=== PATIENT | female | born 1965 | race Hispanic/Latino ===

== ENCOUNTER 2018-02-26 13:08 | Inpatient (IN) | payer SELFPAY ==
[2018-02-26] MEDS ORDERED: NACL 0.9% 1000 ML 1,000 ML IV ONE ×2 (15:34)
--- NOTE | 2018-02-26 15:42 | Emergency Department Report ---
HPI - General Chief Complaint: Abdominal Pain Time Seen by Provider: 02/26/18 15:25 - HPI HPI: Room 25 The patient is a 52-year-old female presenting with a chief complaint an dark stool. Patient states for one week she has had intermittent periumbilical abdominal pain. Patient describes pain as sharp, dull and crampy in nature. Patient states pain has been intermittent for one week. Patient states she had one episode of vomiting but denies hematemesis or coffee ground emesis. The patient states last night her stool appeared dark and there was a streak of bright red blood. Location: Gastrointestinal system Duration: Intermittent times one week Quality: Pain Severity: Moderate Modifying factors: [see above] Context: [see above] Mode of transportation: [not driving] ED Past Medical Hx - Past Medical History Hx Hypertension: Yes (no current meds; ) Hx GERD: Yes Additional medical history: anemia. Bleeding ulcer - Surgical History Additional Surgical History: Endoscopy for bleeding ulcer 5 years ago - Family History Family history: no significant - Social History Smoking Status: Never Smoker Substance Use Type: None (denies illicit drug use) - Medications Home Medications: Home Medications Medication Instructions Recorded Confirmed Last Taken Type Pantoprazole [Protonix] 40 mg PO BID #60 tablet 01/01/14 Unknown Rx Moxifloxacin HCl [Avelox] 400 mg PO QDAY #5 tablet 01/04/14 Unknown Rx ED Review of Systems ROS: Stated complaint: ABD PAIN/BLEEDING/BACK PAIN/N/V Other details as noted in HPI Comment: All other systems reviewed and negative Constitutional: no symptoms reported Eyes: denies: eye pain ENT: denies: throat pain Respiratory: no symptoms reported Cardiovascular: denies: chest pain Endocrine: no symptoms reported Gastrointestinal: abdominal pain, nausea, vomiting, hematochezia Genitourinary: denies: dysuria Musculoskeletal: back pain Neurological: denies: headache Physical Exam - Physical Exam Vital Signs: Vital Signs 02/26/18 13:19 Temperature 99.2 F Pulse Rate 124 H Respiratory 16 Rate Blood Pressure 127/72 O2 Sat by Pulse 100 Oximetry Physical Exam: GENERAL: The patient is well-developed well-nourished female lying on stretcher not appearing to be in acute distress. [] HEENT: Normocephalic. Atraumatic. Extraocular motions are intact. Patient has moist mucous membranes. NECK: Supple. No meningitic signs are noted. There is no adenopathy noted. CHEST/LUNGS: Clear to auscultation. There is no respiratory distress noted. HEART/CARDIOVASCULAR: Regular. There is no tachycardia. There is no gallop rub or murmur. ABDOMEN: Abdomen is soft, nontender. Patient has normal bowel sounds. There is no abdominal distention. SKIN: There is no rash. There is no edema. There is no diaphoresis. NEURO: The patient is awake, alert, and oriented. The patient is cooperative. The patient has normal speech MUSCULOSKELETAL: There is no evidence of acute injury. RECTAL: Guaiac positive ED Course Vital Signs 02/26/18 13:19 Temperature 99.2 F Pulse Rate 124 H Respiratory 16 Rate Blood Pressure 127/72 O2 Sat by Pulse 100 Oximetry ED Medical Decision Making - Lab Data Result diagrams: 02/26/18 15:35 02/26/18 15:35 Laboratory Tests 02/26/18 02/26/18 02/26/18 15:35 15:35 15:35 WBC 8.8 RBC 2.83 L Hgb 10.8 Hct 30.5 MCV 108 H MCH 38 H MCHC 36 H RDW 12.3 L Plt Count 358 Lymph % (Auto) 39.0 H [place] % (Auto) 4.9 Eos % (Auto) 1.1 Baso % (Auto) 0.4 Lymph # 3.4 [place] # 0.4 Eos # 0.1 Baso # 0.0 Seg Neutrophils % 54.6 Seg Neutrophils # 4.8 PT 13.7 INR 1.01 APTT 21.2 L Sodium 141 Potassium 3.9 Chloride 99.5 Carbon Dioxide 26 Anion Gap 19 BUN 20 H Creatinine 0.7 Estimated GFR > 60 BUN/Creatinine Ratio 29 Glucose 104 H Calcium 8.9 Total Bilirubin 0.40 AST 18 ALT 12 Alkaline Phosphatase 80 Total Protein 7.1 Albumin 4.2 Albumin/Globulin Ratio 1.4 - Differential Diagnosis GI bleed Critical care attestation.: If time is entered above; I have spent that time in minutes in the direct care of this critically ill patient, excluding procedure time. ED Disposition Clinical Impression: GI bleed Disposition: OP ADMIT IP TO THIS HOSP Is pt being admited?: Yes Does the pt Need Aspirin: No Condition: Fair Instructions: Abdominal Pain (ED) Referrals: MCGRAW,COLLEEN, MD [Primary Care Provider] - 3-5 Days Time of Disposition: 16:28 (hospitalist paged (Dr Briscoe))
[2018-02-26 15:45] LABS: Basophils % (Auto) 0.4 % (0.0-1.8); Eosinophils # (Auto) 0.1 K/mm3 (0.0-0.4); Eosinophils % (Auto) 1.1 % (0.0-4.3); Hematocrit 30.5 % (30.3-42.9); Hemoglobin 10.8 gm/dl (10.1-14.3); Lymphocytes # (Auto) 3.4 K/mm3 (1.2-5.4); Mean Corpuscular HGB Conc 36 % (30-34); Mean Corpuscular Volume 108 fl (79-97); Monocytes # (Auto) 0.4 K/mm3 (0.0-0.8); Monocytes % (Auto) 4.9 % (0.0-7.3); Platelet Count 358 K/mm3 (140-440); Red Blood Count 2.83 M/mm3 (3.65-5.03); Red Cell Distribution Width 12.3 % (13.2-15.2)
[2018-02-26 15:55] LABS: INR 1.01 (0.87-1.13)
[2018-02-26 15:56] LABS: Partial Thromboplastin Time 21.2 Sec. (24.2-36.6)
[2018-02-26 16:20] LABS: Alanine Aminotransferase 12 units/L (7-56); Albumin 4.2 g/dL (3.9-5); BUN/Creatinine Ratio 29; Blood Urea Nitrogen 20 mg/dL (7-17); Calcium 8.9 mg/dL (8.4-10.2); Hemolysis Index 7
[2018-02-26] MEDS ORDERED: ZOFRAN IV ONE (17:09)
[2018-02-26] MEDS ORDERED: SUBLIMAZE IV ONE (17:09)
--- NOTE | 2018-02-26 18:40 | History and Physical Report ---
History of Present Illness Date of examination: 02/26/18 Medications and Allergies Allergies Allergy/AdvReac Type Severity Reaction Status Date / Time Penicillins Allergy Swelling Verified 12/28/13 17:26 Home Medications Medication Instructions Recorded Confirmed Last Taken Type Pantoprazole [Protonix] 40 mg PO BID #60 tablet 01/01/14 Unknown Rx Moxifloxacin HCl [Avelox] 400 mg PO QDAY #5 tablet 01/04/14 Unknown Rx Exam - Constitutional Vitals: Temp Pulse Resp BP Pulse Ox 99.2 F 101 H 19 129/83 98 02/26/18 13:19 02/26/18 18:00 02/26/18 18:00 02/26/18 18:00 02/26/18 18:00 Results - Labs CBC & Chem 7: 02/26/18 15:35 02/26/18 15:35 Labs: Laboratory Last Values WBC 8.8 K/mm3 (4.5-11.0) 02/26/18 15:35 RBC 2.83 M/mm3 (3.65-5.03) L 02/26/18 15:35 Hgb 10.8 gm/dl (10.1-14.3) 02/26/18 15:35 Hct 30.5 % (30.3-42.9) 02/26/18 15:35 MCV 108 fl (79-97) H 02/26/18 15:35 MCH 38 pg (28-32) H 02/26/18 15:35 MCHC 36 % (30-34) H 02/26/18 15:35 RDW 12.3 % (13.2-15.2) L 02/26/18 15:35 Plt Count 358 K/mm3 (140-440) 02/26/18 15:35 Lymph % (Auto) 39.0 % (13.4-35.0) H 02/26/18 15:35 [place] % (Auto) 4.9 % (0.0-7.3) 02/26/18 15:35 Eos % (Auto) 1.1 % (0.0-4.3) 02/26/18 15:35 Baso % (Auto) 0.4 % (0.0-1.8) 02/26/18 15:35 Lymph # 3.4 K/mm3 (1.2-5.4) 02/26/18 15:35 [place] # 0.4 K/mm3 (0.0-0.8) 02/26/18 15:35 Eos # 0.1 K/mm3 (0.0-0.4) 02/26/18 15:35 Baso # 0.0 K/mm3 (0.0-0.1) 02/26/18 15:35 Seg Neutrophils % 54.6 % (40.0-70.0) 02/26/18 15:35 Seg Neutrophils # 4.8 K/mm3 (1.8-7.7) 02/26/18 15:35 PT 13.7 Sec. (12.2-14.9) 02/26/18 15:35 INR 1.01 (0.87-1.13) 02/26/18 15:35 APTT 21.2 Sec. (24.2-36.6) L 02/26/18 15:35 Sodium 141 mmol/L (137-145) 02/26/18 15:35 Potassium 3.9 mmol/L (3.6-5.0) 02/26/18 15:35 Chloride 99.5 mmol/L (98-107) 02/26/18 15:35 Carbon Dioxide 26 mmol/L (22-30) 02/26/18 15:35 Anion Gap 19 mmol/L 02/26/18 15:35 BUN 20 mg/dL (7-17) H 02/26/18 15:35 Creatinine 0.7 mg/dL (0.7-1.2) 02/26/18 15:35 Estimated GFR > 60 ml/min 02/26/18 15:35 BUN/Creatinine Ratio 29 % 02/26/18 15:35 Glucose 104 mg/dL (65-100) H 02/26/18 15:35 Calcium 8.9 mg/dL (8.4-10.2) 02/26/18 15:35 Total Bilirubin 0.40 mg/dL (0.1-1.2) 02/26/18 15:35 AST 18 units/L (5-40) 02/26/18 15:35 ALT 12 units/L (7-56) 02/26/18 15:35 Alkaline Phosphatase 80 units/L (35-129) 02/26/18 15:35 Total Protein 7.1 g/dL (6.3-8.2) 02/26/18 15:35 Albumin 4.2 g/dL (3.9-5) 02/26/18 15:35 Albumin/Globulin Ratio 1.4 % 02/26/18 15:35 Blood Type A POSITIVE 02/26/18 15:42 Antibody Screen Negative 02/26/18 15:42
[2018-02-26] MEDS ORDERED: ZOFRAN IV PRN ×2 (18:51→21:29)
[2018-02-26] MEDS ORDERED: DILAUDID IV PRN (18:51)
[2018-02-26] MEDS ORDERED: SODIUM CHLORIDE FLUSH SYRINGE 10 ML IV PRN ×2 (18:51→21:29)
[2018-02-26] MEDS ORDERED: TYLENOL PO PRN ×2 (18:51→21:29)
[2018-02-26] MEDS ORDERED: D5NS 1,000 ML IV SCH (19:00)
[2018-02-26] MEDS ORDERED: ALUM-MAG HYDROX-SIMETH 200-200-20MG/5ML PO PRN (20:30)
[2018-02-26] MEDS ORDERED: ALUM-MAG HYDROX-SIMETH 200-200-20MG/5ML ONE (20:30)
[2018-02-26] MEDS: PROTONIX 80 MG in NACL 0.9% 100 ML IV SCH (21:13)
[2018-02-26] MEDS ORDERED: PROTONIX 80 MG in NACL 0.9% 100 ML IV SCH (21:29)
[2018-02-26] MEDS ORDERED: SODIUM CHLORIDE FLUSH SYRINGE 10 ML IV SCH (22:00)
[2018-02-26] MEDS: D5NS 1,000 ML IV SCH (22:06)
[2018-02-26] MEDS: SODIUM CHLORIDE FLUSH SYRINGE 10 ML IV SCH (22:07)
[2018-02-27] MEDS: DILAUDID IV PRN ×5 (00:01→19:54)
[2018-02-27 04:30] LABS: Basophils % (Auto) 0.5 % (0.0-1.8); Eosinophils # (Auto) 0.2 K/mm3 (0.0-0.4); Eosinophils % (Auto) 2.6 % (0.0-4.3); Hematocrit 20.8 % (30.3-42.9); Hemoglobin 7.3 gm/dl (10.1-14.3); Lymphocytes # (Auto) 2.5 K/mm3 (1.2-5.4); Lymphocytes % (Auto) 41.4 % (13.4-35.0); Mean Corpuscular HGB Conc 35 % (30-34); Mean Corpuscular Volume 110 fl (79-97); Monocytes # (Auto) 0.4 K/mm3 (0.0-0.8); Monocytes % (Auto) 6.2 % (0.0-7.3); Platelet Count 206 K/mm3 (140-440); Red Cell Distribution Width 12.6 % (13.2-15.2)
[2018-02-27 05:04] LABS: Alanine Aminotransferase 8 units/L (7-56); Albumin 3.1 g/dL (3.9-5); BUN/Creatinine Ratio 16; Blood Urea Nitrogen 8 mg/dL (7-17); Calcium 7.8 mg/dL (8.4-10.2); Hemolysis Index 4
[2018-02-27] MEDS: PROTONIX 80 MG in NACL 0.9% 100 ML IV SCH ×2 (05:32→15:18)
--- NOTE | 2018-02-27 06:50 | Event Note ---
Date: 02/26/18 See H/p in reports GI Bleed
--- NOTE | 2018-02-27 07:36 | History and Physical Report ---
CHIEF COMPLAINT: Dark tarry stools for 1 day. Abdominal pain for 1 week. HISTORY OF PRESENT ILLNESS: The patient is a 52-year-old female with history of hypertension, gastroesophageal reflux disease, and bleeding ulcer, comes in for dark tarry stools of 1 day duration. The patient also has intermittent abdominal pain about 5 on a scale of 10. Dull crampy nature, going on for 1 week. One episode of vomiting, but denies hematemesis or coffee-ground emesis. Stool appears dark since last night and there was a streak of bright red blood on the stool. No syncope, no lightheadedness. No seizures. No fever or chills. PAST MEDICAL HISTORY: As mentioned, has hypertension, not on any medications, Gastroesophageal reflux disease and peptic ulcer disease. PAST SURGICAL HISTORY: Endoscopy for bleeding ulcer 5 years ago. FAMILY HISTORY: Hypertension. SOCIAL HISTORY: Does not smoke. No alcohol, no recreational drugs. CURRENT MEDICATIONS: Protonix 40 mg twice a day and also, Avelox in the past in 12/2013. REVIEW OF SYSTEMS: Significant for dark tarry stools. No lightheadedness, no syncope. Otherwise, review of systems negative. PHYSICAL EXAMINATION: GENERAL: Middle-aged female, cooperative during examination. VITAL SIGNS: Blood pressure 132/82, temperature 98.7, pulse 102, respirations 15. HEENT: Unremarkable. Pupils equal and reactive. NECK: Supple, no lymphadenopathy, no thyromegaly. LUNGS: Clear to auscultation and percussion. Good air entry. CARDIOVASCULAR: S1, S2 heard. No gallop, no murmur, no rub. Apical impulse in left fifth intercostal space and midclavicular line. ABDOMEN: Soft and benign. RECTAL: Occult blood positive on the rectal exam. SKIN: Normal. CENTRAL NERVOUS SYSTEM: Alert and oriented x 4. LABORATORY DATA: Significant for H and H of 10.8 and 30.5, platelet count of 358,000. BUN and creatinine of 20 and 0.7. Otherwise, electrolytes are normal. ASSESSMENT AND PLAN: 1. Gastrointestinal bleed. Serial hemoglobin and hematocrit to rule out acute blood loss anemia and GI consult requested. IV Protonix initiated for possible peptic ulcer disease and bleeding ulcer. IV fluids. 2. Hypertension. The patient not on any medication. Blood pressure is normal now, so we will initiate antihypertensives if necessary. 3. Gastroesophageal reflux disease. The patient already on Protonix drip. Discharge the patient on PPIs. 4. Deep venous thrombosis prophylaxis, SCDs only. No Lovenox. The patient on PPI for gastrointestinal hemorrhage. Cover for GI prophylaxis. JOB# [id number] VSM/JM AG
[2018-02-27] MEDS: D5NS 1,000 ML IV SCH (10:36)
--- NOTE | 2018-02-27 11:40 | Progress Note ---
Assessment and Plan Assessment and plan: 52-year-old female patient with significant has a history of hypertension GERD bleeding ulcers and erosive esophagitis was admitted to the emergency room with melena. --Acute GI bleeding; With significant drop in H&H, Protonix, nothing by mouth status, GI evaluation --Acute blood loss anemia; hemoglobin dropped from 10.8 -7.3 - 7.1 Closely monitor H&H and transfuse 1 unit of PRBCs today. --History of erosive esophagitis/duodenal ulcer; Follow GI consultation, and recommendations --Moderate malnutrition; nutrition supplements and supportive care --DVT prophylaxis; SCDs, no pharmacologic anticoagulation In view of severe GI bleeding and anemia Closely monitor the patient and adjust the management as needed Plan of care reviewed with the patient and family member at the bedside History Interval history: Patient seen and examined medical records reviewed Admitted with upper GI bleeding/melena, pending GI evaluation Patient has significant history of erosive esophagitis and duodenal ulcer in the past Hemoglobin dropped from 10-7.1 Continues to have black tarry stools Patient complains of generalized weakness Vital signs noted Hospitalist Physical - Constitutional Vitals: Temp Pulse Resp BP Pulse Ox 98.7 F 94 H 16 120/67 98 02/27/18 04:52 02/27/18 04:52 02/27/18 04:52 02/27/18 04:52 02/27/18 04:52 General appearance: Present: no acute distress, well-nourished - EENT Eyes: Present: PERRL, EOM intact - Neck Neck: Present: supple, normal ROM - Respiratory Respiratory effort: normal Respiratory: bilateral: diminished, negative: rales, rhonchi, wheezing - Cardiovascular Rhythm: regular Heart Sounds: Present: S1 & S2 - Extremities Extremities: no ischemia, No edema - Abdominal General gastrointestinal: soft, non-tender, non-distended, normal bowel sounds - Integumentary Integumentary: Present: clear, warm - Psychiatric Psychiatric: appropriate mood/affect, cooperative - Neurologic Neurologic: CNII-XII intact, moves all extremities Results - Labs CBC & Chem 7: 02/27/18 12:29 02/27/18 04:10 Labs: Laboratory Last Values WBC 6.0 K/mm3 (4.5-11.0) 02/27/18 04:10 RBC 1.90 M/mm3 (3.65-5.03) L 02/27/18 04:10 Hgb 7.3 gm/dl (10.1-14.3) L D 02/27/18 04:10 Hct 20.8 % (30.3-42.9) L D 02/27/18 04:10 MCV 110 fl (79-97) H 02/27/18 04:10 MCH 38 pg (28-32) H 02/27/18 04:10 MCHC 35 % (30-34) H 02/27/18 04:10 RDW 12.6 % (13.2-15.2) L 02/27/18 04:10 Plt Count 206 K/mm3 (140-440) 02/27/18 04:10 Lymph % (Auto) 41.4 % (13.4-35.0) H 02/27/18 04:10 [place] % (Auto) 6.2 % (0.0-7.3) 02/27/18 04:10 Eos % (Auto) 2.6 % (0.0-4.3) 02/27/18 04:10 Baso % (Auto) 0.5 % (0.0-1.8) 02/27/18 04:10 Lymph # 2.5 K/mm3 (1.2-5.4) 02/27/18 04:10 [place] # 0.4 K/mm3 (0.0-0.8) 02/27/18 04:10 Eos # 0.2 K/mm3 (0.0-0.4) 02/27/18 04:10 Baso # 0.0 K/mm3 (0.0-0.1) 02/27/18 04:10 Seg Neutrophils % 49.3 % (40.0-70.0) 02/27/18 04:10 Seg Neutrophils # 3.0 K/mm3 (1.8-7.7) 02/27/18 04:10 PT 13.7 Sec. (12.2-14.9) 02/26/18 15:35 INR 1.01 (0.87-1.13) 02/26/18 15:35 APTT 21.2 Sec. (24.2-36.6) L 02/26/18 15:35 Sodium 139 mmol/L (137-145) 02/27/18 04:10 Potassium 4.2 mmol/L (3.6-5.0) 02/27/18 04:10 Chloride 107.1 mmol/L (98-107) H 02/27/18 04:10 Carbon Dioxide 25 mmol/L (22-30) 02/27/18 04:10 Anion Gap 11 mmol/L 02/27/18 04:10 BUN 8 mg/dL (7-17) 02/27/18 04:10 Creatinine 0.5 mg/dL (0.7-1.2) L 02/27/18 04:10 Estimated GFR > 60 ml/min 02/27/18 04:10 BUN/Creatinine Ratio 16 % 02/27/18 04:10 Glucose 99 mg/dL (65-100) 02/27/18 04:10 Hemoglobin A1c 10.8 % (4-6) H 02/27/18 04:10 Calcium 7.8 mg/dL (8.4-10.2) L 02/27/18 04:10 Total Bilirubin 0.30 mg/dL (0.1-1.2) 02/27/18 04:10 AST 14 units/L (5-40) 02/27/18 04:10 ALT 8 units/L (7-56) 02/27/18 04:10 Alkaline Phosphatase 52 units/L (35-129) 02/27/18 04:10 Total Protein 4.7 g/dL (6.3-8.2) L D 02/27/18 04:10 Albumin 3.1 g/dL (3.9-5) L 02/27/18 04:10 Albumin/Globulin Ratio 1.9 % 02/27/18 04:10 Blood Type A POSITIVE 02/26/18 15:42 Antibody Screen Negative 02/26/18 15:42
[2018-02-27] MEDS ORDERED: AFLURIA QUAD 2018-2019 SYRINGE IM ONE (12:00)
[2018-02-27 12:54] LABS: Hematocrit 20.6 % (30.3-42.9); Hemoglobin 7.1 gm/dl (10.1-14.3)
[2018-02-27] MEDS: SODIUM CHLORIDE FLUSH SYRINGE 10 ML IV SCH ×2 (14:31→22:09)
[2018-02-27] MEDS ORDERED: NACL 0.9% 500 ML 500 ML IV ONE (15:51)
--- NOTE | 2018-02-27 16:44 | Gastroenterology Consultation ---
History of Present Illness - Reason for Consult Consult date: 02/27/18 GI bleed Requesting physician: LEXII VALENZUELA - History of Present Illness Ms Mccullough is a 52 yo wf who presents with melena/black stools for 1 day. Symptoms started the day prior to admission. She reports having multiple dark stools with also traces of blood. No further episodes of bloody appearing bm's today. She had a drop in H/H since admission which has since stabilized. She denies nsaid's. Mild abd discomfort for the past couple days. She has a h/o PUD (Duodenal ulcer with bleeding) several years ago. Denies hematemesis; vitals stable since admission. Past History Past Medical History: GERD, other (Peptic ulcer disease) Past Surgical History: No surgical history Social history: no significant social history Family history: no significant family history Medications and Allergies Allergies Allergy/AdvReac Type Severity Reaction Status Date / Time Penicillins Allergy Swelling Verified 12/28/13 17:26 Home Medications Medication Instructions Recorded Confirmed Last Taken Type Pantoprazole [Protonix] 40 mg PO BID #60 tablet 01/01/14 Unknown Rx Moxifloxacin HCl [Avelox] 400 mg PO QDAY #5 tablet 01/04/14 Unknown Rx Active Meds: Active Medications Acetaminophen (Tylenol) 650 mg PO Q4H PRN PRN Reason: Pain MILD(1-3)/Fever >100.5/HALEY Al Hydrox/Mg Hydrox/Simethicone (Alum-Mag Hydrox-Simeth [phone]/5ml) 30 ml PO Q4H PRN PRN Reason: Indigestion Last Admin: 02/26/18 20:32 Dose: 30 ml Documented by: Hydromorphone HCl (Dilaudid) 0.5 mg IV Q3H PRN PRN Reason: Pain , Severe (7-10) Last Admin: 02/27/18 15:21 Dose: 0.5 mg Documented by: Pantoprazole Sodium 80 mg/ (Sodium Chloride) 100 mls @ 10 mls/hr IV DIRECT CONCEPCIÓN Last Admin: 02/27/18 15:18 Dose: 8 mg/hr, 10 mls/hr Documented by: Dextrose/Sodium Chloride (D5ns) 1,000 mls @ 75 mls/hr IV DIRECT CONCEPCIÓN Last Admin: 02/27/18 10:36 Dose: 75 mls/hr Documented by: Ondansetron HCl (Zofran) 4 mg IV Q8H PRN PRN Reason: Nausea And Vomiting Sodium Chloride (Sodium Chloride Flush Syringe 10 Ml) 10 ml IV BID CONCEPCIÓN Last Admin: 02/27/18 14:31 Dose: 10 ml Documented by: Sodium Chloride (Sodium Chloride Flush Syringe 10 Ml) 10 ml IV PRN PRN PRN Reason: LINE FLUSH Review of Systems - Review of Systems All systems: negative (per HPI) Exam - Constitutional Vital Signs: Temp Pulse Resp BP Pulse Ox 98.2 F 100 H 16 125/69 99 02/27/18 11:35 02/27/18 11:35 02/27/18 11:35 02/27/18 11:35 02/27/18 11:35 General appearance: no acute distress - EENT Eyes: PERRL, EOM intact - Respiratory Respiratory effort: normal Respiratory: bilateral: CTA - Cardiovascular Rhythm: regular Heart Sounds: Present: S1 & S2 Extremities: No edema - Gastrointestinal General gastrointestinal: Present: soft, non-tender, non-distended, normal bowel sounds - Integumentary Integumentary: Present: clear, warm - Neurologic Neurological: alert and oriented x3 - Psychiatric Psychiatric: appropriate mood/affect - Labs CBC & Chem 7: 02/27/18 12:29 02/27/18 04:10 Lab Results: Laboratory Results - last 24 hr 02/26/18 02/27/18 02/27/18 15:42 04:10 04:10 WBC 6.0 RBC 1.90 L Hgb 7.3 L D Hct 20.8 L D MCV 110 H MCH 38 H MCHC 35 H RDW 12.6 L Plt Count 206 Lymph % (Auto) 41.4 H [place] % (Auto) 6.2 Eos % (Auto) 2.6 Baso % (Auto) 0.5 Lymph # 2.5 [place] # 0.4 Eos # 0.2 Baso # 0.0 Seg Neutrophils % 49.3 Seg Neutrophils # 3.0 Sodium 139 Potassium 4.2 Chloride 107.1 H Carbon Dioxide 25 Anion Gap 11 BUN 8 Creatinine 0.5 L Estimated GFR > 60 BUN/Creatinine Ratio 16 Glucose 99 Hemoglobin A1c Calcium 7.8 L Total Bilirubin 0.30 AST 14 ALT 8 Alkaline Phosphatase 52 Total Protein 4.7 L D Albumin 3.1 L Albumin/Globulin Ratio 1.9 Blood Type A POSITIVE Antibody Screen Negative Crossmatch See Detail 02/27/18 02/27/18 04:10 12:29 WBC RBC Hgb 7.1 L Hct 20.6 L MCV MCH MCHC RDW Plt Count Lymph % (Auto) [place] % (Auto) Eos % (Auto) Baso % (Auto) Lymph # [place] # Eos # Baso # Seg Neutrophils % Seg Neutrophils # Sodium Potassium Chloride Carbon Dioxide Anion Gap BUN Creatinine Estimated GFR BUN/Creatinine Ratio Glucose Hemoglobin A1c 10.8 H Calcium Total Bilirubin AST ALT Alkaline Phosphatase Total Protein Albumin Albumin/Globulin Ratio Blood Type Antibody Screen Crossmatch Assessment and Plan 1. Anemia/GI bleed - black stools and personal history of PUD. denies nsaid's; drop in H/H but stable on repeat labs and no further bleeding episodes today. will plan for EGD tomorrow, cont IV PPI and NPO at midnight. Further recommendations following procedure.
[2018-02-27 21:59] LABS: Hematocrit 23.6 % (30.3-42.9); Hemoglobin 8.2 gm/dl (10.1-14.3)
[2018-02-28] MEDS: DILAUDID IV PRN ×3 (02:07→19:51)
[2018-02-28] MEDS: D5NS 1,000 ML IV SCH ×2 (02:24→15:59)
[2018-02-28] MEDS: PROTONIX 80 MG in NACL 0.9% 100 ML IV SCH (02:24)
[2018-02-28 06:45] LABS: Basophils % (Auto) 0.3 % (0.0-1.8); Eosinophils # (Auto) 0.2 K/mm3 (0.0-0.4); Eosinophils % (Auto) 2.8 % (0.0-4.3); Hematocrit 22.1 % (30.3-42.9); Hemoglobin 7.5 gm/dl (10.1-14.3); Lymphocytes # (Auto) 2.2 K/mm3 (1.2-5.4); Lymphocytes % (Auto) 37.2 % (13.4-35.0); Mean Corpuscular HGB Conc 34 % (30-34); Mean Corpuscular Volume 106 fl (79-97); Monocytes # (Auto) 0.5 K/mm3 (0.0-0.8); Platelet Count 204 K/mm3 (140-440); Red Blood Count 2.09 M/mm3 (3.65-5.03); Red Cell Distribution Width 15.6 % (13.2-15.2)
[2018-02-28 07:10] LABS: BUN/Creatinine Ratio 18; Blood Urea Nitrogen 7 mg/dL (7-17); Hemolysis Index 5
[2018-02-28] MEDS: SODIUM CHLORIDE FLUSH SYRINGE 10 ML IV SCH ×2 (09:25→21:15)
[2018-02-28 09:31] LABS: Hematocrit 20.8 % (30.3-42.9); Hemoglobin 7.2 gm/dl (10.1-14.3)
[2018-02-28] MEDS ORDERED: NACL 0.9% 1000 ML 1,000 ML ONE (09:56)
[2018-02-28] MEDS ORDERED: WATER FOR IRRIG STERILE IR ONE (10:06)
--- NOTE | 2018-02-28 10:19 | Progress Note ---
Assessment and Plan Assessment and plan: 52-year-old female patient with significant has a history of hypertension GERD bleeding ulcers and erosive esophagitis was admitted to the emergency room with melena. --Acute GI bleeding; With significant drop in H&H, Protonix, nothing by mouth status, s/pt EGD today; duodenal ulcer with heme spot. No high risk bleeding lesions Advise PPIs twice a day avoid NSAIDs H pylori serology advance diet as tolerated. Okay to DC from GI standpoint --Acute blood loss anemia; hemoglobin dropped from 10.8 -7.3 - 7.5-7.2 s/p 1 unit of PRBCs transfusion --History of erosive esophagitis/duodenal ulcer;s/p EGD --Moderate malnutrition; nutrition supplements and supportive care --DVT prophylaxis; SCDs, no pharmacologic anticoagulation In view of severe GI bleeding and anemia Closely monitor the patient and adjust the management as needed Plan of care reviewed with the patient and family member at the bedside Possible discharge home tomorrow if stable History Interval history: Patient seen and examined medical records reviewed Underwent EGD today, findings noted No new complaints Vital signs reviewed Hospitalist Physical - Constitutional Vitals: Temp Pulse Resp BP Pulse Ox 98.2 F 103 H 16 117/72 99 02/28/18 05:16 02/28/18 05:16 02/28/18 05:16 02/28/18 05:16 02/28/18 05:16 General appearance: Present: no acute distress, well-nourished - EENT Eyes: Present: PERRL, EOM intact - Neck Neck: Present: supple, normal ROM - Respiratory Respiratory effort: normal Respiratory: bilateral: diminished, negative: rales, rhonchi, wheezing - Cardiovascular Rhythm: regular Heart Sounds: Present: S1 & S2 - Extremities Extremities: no ischemia, No edema - Abdominal General gastrointestinal: soft, non-tender, non-distended, normal bowel sounds - Integumentary Integumentary: Present: clear, warm - Psychiatric Psychiatric: appropriate mood/affect, cooperative - Neurologic Neurologic: CNII-XII intact, moves all extremities Results - Labs CBC & Chem 7: 02/28/18 09:18 02/28/18 06:20 Labs: Laboratory Last Values WBC 5.8 K/mm3 (4.5-11.0) 02/28/18 06:20 RBC 2.09 M/mm3 (3.65-5.03) L 02/28/18 06:20 Hgb 7.2 gm/dl (10.1-14.3) L 02/28/18 09:18 Hct 20.8 % (30.3-42.9) L 02/28/18 09:18 MCV 106 fl (79-97) H 02/28/18 06:20 MCH 36 pg (28-32) H 02/28/18 06:20 MCHC 34 % (30-34) 02/28/18 06:20 RDW 15.6 % (13.2-15.2) H 02/28/18 06:20 Plt Count 204 K/mm3 (140-440) 02/28/18 06:20 Lymph % (Auto) 37.2 % (13.4-35.0) H 02/28/18 06:20 [place] % (Auto) 8.0 % (0.0-7.3) H 02/28/18 06:20 Eos % (Auto) 2.8 % (0.0-4.3) 02/28/18 06:20 Baso % (Auto) 0.3 % (0.0-1.8) 02/28/18 06:20 Lymph # 2.2 K/mm3 (1.2-5.4) 02/28/18 06:20 [place] # 0.5 K/mm3 (0.0-0.8) 02/28/18 06:20 Eos # 0.2 K/mm3 (0.0-0.4) 02/28/18 06:20 Baso # 0.0 K/mm3 (0.0-0.1) 02/28/18 06:20 Seg Neutrophils % 51.7 % (40.0-70.0) 02/28/18 06:20 Seg Neutrophils # 3.0 K/mm3 (1.8-7.7) 02/28/18 06:20 PT 13.7 Sec. (12.2-14.9) 02/26/18 15:35 INR 1.01 (0.87-1.13) 02/26/18 15:35 APTT 21.2 Sec. (24.2-36.6) L 02/26/18 15:35 Sodium 141 mmol/L (137-145) 02/28/18 06:20 Potassium 4.5 mmol/L (3.6-5.0) 02/28/18 06:20 Chloride 107.0 mmol/L (98-107) 02/28/18 06:20 Carbon Dioxide 25 mmol/L (22-30) 02/28/18 06:20 Anion Gap 14 mmol/L 02/28/18 06:20 BUN 7 mg/dL (7-17) 02/28/18 06:20 Creatinine 0.4 mg/dL (0.7-1.2) L 02/28/18 06:20 Estimated GFR > 60 ml/min 02/28/18 06:20 BUN/Creatinine Ratio 18 % 02/28/18 06:20 Glucose 85 mg/dL (65-100) 02/28/18 06:20 Hemoglobin A1c 10.8 % (4-6) H 02/27/18 04:10 Calcium 8.0 mg/dL (8.4-10.2) L 02/28/18 06:20 Total Bilirubin 0.30 mg/dL (0.1-1.2) 02/27/18 04:10 AST 14 units/L (5-40) 02/27/18 04:10 ALT 8 units/L (7-56) 02/27/18 04:10 Alkaline Phosphatase 52 units/L (35-129) 02/27/18 04:10 Total Protein 4.7 g/dL (6.3-8.2) L D 02/27/18 04:10 Albumin 3.1 g/dL (3.9-5) L 02/27/18 04:10 Albumin/Globulin Ratio 1.9 % 02/27/18 04:10 Blood Type A POSITIVE 02/26/18 15:42 Antibody Screen Negative 02/26/18 15:42 Crossmatch See Detail 02/26/18 15:42
--- NOTE | 2018-02-28 10:57 | Anesthesia Day of Surgery ---
Anesthesia Day of Surgery - Day of Surgery Patient Examined: Yes Patient H&P Reviewed: Yes Patient is NPO: Yes
--- NOTE | 2018-02-28 10:57 | Anesthesia Consultation ---
Anesthesia Consult and Med Hx Date of service: 02/28/18 - Airway Anesthetic Teeth Evaluation: Poor (denies loose teeth) ROM Head & Neck: Adequate Mental/Hyoid Distance: Adequate Mallampati Class: Class III Intubation Access Assessment: Possibly Difficult - Pulmonary Exam CTA: Yes - Cardiac Exam Cardiac Exam: RRR - Pre-Operative Health Status ASA Pre-Surgery Classification: ASA3 Proposed Anesthetic Plan: MAC - Pulmonary Hx Smoking: No Hx Asthma: No Hx Respiratory Symptoms: No (no recent cough or flu-like symptoms) - Cardiovascular System Hx Hypertension: Yes (no antihypertensives in several years. BP well controlled since admission.) Hx Heart Attack/AMI: No Hx Percutaneous Transluminal Coronary Angioplasty (PTCA): No - Central Nervous System Hx Seizures: No CVA: No Hx Back Pain: Yes - Gastrointestinal Hx Ulcer: Yes (hx peptic/duodenal ulcers with GI bleed in the past) Hx Gastroesophageal Reflux Disease: Yes - Endocrine Hx Renal Disease: No Hx Liver Disease: No Hx Insulin Dependent Diabetes: No Hx Non-Insulin Dependent Diabetes: No Hx Thyroid Disease: No - Hematic Hx Anemia: Yes - Other Systems Hx Obesity: No - Additional Comments Anesthesia Medical History Comments: No hx anesthetic complications.
[2018-02-28] MEDS ORDERED: NACL 0.9% 1000 ML 1,000 ML IV SCH (11:00)
[2018-02-28] MEDS ORDERED: XYLOCAINE 2% INFILTRATI ONE (11:21)
[2018-02-28] MEDS ORDERED: DIPRIVAN 10 MG/ML IV ONE (11:22)
[2018-02-28] MEDS ORDERED: VERSED ONE (11:22)
--- NOTE | 2018-02-28 11:33 | Operative Report ---
Operative Report Operative Report: Esophagogastroduodenoscopy Procedure Report Date of procedure: 02/28/2018 Endoscopist: Gab Araiza Pre-op diagnosis/indication: GI bleed Post-op diagnosis: Duodenal ulcer with heme spot but no high risk bleeding stigmata MEDICATIONS: MAC COMPLICATIONS: No immediate complications ESTIMATED BLOOD LOSS: Minimal DESCRIPTION OF PROCEDURE: After consent was obtained, the patient was placed in the left lateral decubitis position. The upper fujinon endoscope was passed with direct vision through the mouth and advanced to the 2nd portion of the duodenum without difficulty. The mucosal views were good. The patient tolerated the procedure well. The patient's vital signs were monitored continuously throughout the procedure. FINDINGS: There was a hiatal hernia, otherwise the esophagus appeared normal. The stomach appeared normal. There was a small superficial ulcer in the duodenal sweep. There was an area of heme spot, but no active bleeding or high risk bleeding lesions. Bile was seen throughout the 2nd portion of the duodenum. IMPRESSION: 1. Duodenal ulcer with heme spot but no high risk bleeding lesions RECOMMENDATIONS: -can switch to PPI BID dosing (po), d/c IV PPI -avoid nsaid medications -check h pylori serologies and treat if positive (biopsies not done during procedure) -restart diet and advance as tolerated Okay to be discharged if tolerating po and labs remain stable from gi stand point. Follow-up in GI clinic in 2-3 weeks for outpatient colonoscopy.
[2018-02-28] MEDS: PROTONIX PO SCH ×2 (13:46→21:15)
[2018-02-28] MEDS ORDERED: PROTONIX 80 MG in NACL 0.9% 100 ML IV SCH (14:00)
[2018-02-28 23:46] LABS: Hematocrit 21.9 % (30.3-42.9); Hemoglobin 7.5 gm/dl (10.1-14.3)
[2018-03-01] MEDS: DILAUDID IV PRN ×3 (01:08→13:03)
[2018-03-01 06:54] LABS: Basophils % (Auto) 0.3 % (0.0-1.8); Eosinophils # (Auto) 0.1 K/mm3 (0.0-0.4); Hematocrit 20.3 % (30.3-42.9); Hemoglobin 7.2 gm/dl (10.1-14.3); Lymphocytes # (Auto) 1.4 K/mm3 (1.2-5.4); Lymphocytes % (Auto) 33.4 % (13.4-35.0); Mean Corpuscular HGB Conc 35 % (30-34); Mean Corpuscular Volume 106 fl (79-97); Monocytes # (Auto) 0.3 K/mm3 (0.0-0.8); Monocytes % (Auto) 7.1 % (0.0-7.3); Platelet Count 174 K/mm3 (140-440); Red Blood Count 1.92 M/mm3 (3.65-5.03); Red Cell Distribution Width 15.5 % (13.2-15.2)
[2018-03-01 07:04] LABS: BUN/Creatinine Ratio 10; Blood Urea Nitrogen 4 mg/dL (7-17); Calcium 7.9 mg/dL (8.4-10.2); Hemolysis Index 2
[2018-03-01 12:07] VITALS: BP 134/77
[2018-03-01] MEDS: SODIUM CHLORIDE FLUSH SYRINGE 10 ML IV SCH (12:34)
[2018-03-01] MEDS: PROTONIX PO SCH (12:34)
--- NOTE | 2018-03-01 13:22 | Discharge Summary ---
Providers - Providers Date of Admission: 02/26/18 18:51 Date of discharge: 03/01/18 Attending physician: NATALIYA PENDLETON 02/26/18 21:29 Consult to Physician [CONS] Routine Comment: Consulting Provider: ADAMA SORENSON Physician Instructions: Reason For Exam: Gi hemorrhage Primary care physician: COLLEEN MCGRAW Hospitalization Reason for admission: melena/upper GI bleeding Condition: Fair Procedures: EGD today; duodenal ulcer with heme spot. No high risk bleeding lesions Hospital course: 52-year-old female patient with significant has a history of hypertension GERD bleeding ulcers and erosive esophagitis was admitted to the emergency room with melena. Patient was admitted symptomatically managed, evaluated by GI, patient underwent EGD Findings of features mentioned above, patient strongly advised to avoid NSAID group of medications Today patient is comfortable in no new complaints, vital signs stable Physical examination is unremarkable, hemoglobin is 7.2 Hemodynamically and clinically stable for discharge Follow-up with GI per schedule Discharge diagnosis; --Acute GI bleeding; With significant drop in H&H, Protonix, nothing by mouth status, s/pt EGD today; duodenal ulcer with heme spot. No high risk bleeding lesions Advise PPIs twice a day avoid NSAIDs H pylori serology advance diet as tolerated. Okay to DC from GI standpoint --Acute blood loss anemia; hemoglobin dropped from 10.8 -7.3 - 7.5-7.2 s/p 1 unit of PRBCs transfusion --History of erosive esophagitis/duodenal ulcer;s/p EGD --Moderate malnutrition; nutrition supplements and supportive care --DVT prophylaxis; SCDs, no pharmacologic anticoagulation In view of severe GI bleeding and anemia Closely monitor the patient and adjust the management as needed Plan of care reviewed with the patient and family member at the bedside Possible discharge home tomorrow if stable Disposition: DC-01 TO HOME OR SELFCARE Time spent for discharge: 31 min Core Measure Documentation - Palliative Care Palliative Care/ Comfort Measures: Not Applicable - Core Measures Any of the following diagnoses?: none Exam - Constitutional Vitals: Temp Pulse Resp BP Pulse Ox 98.5 F 95 H 18 134/77 97 03/01/18 12:05 03/01/18 12:05 03/01/18 12:05 03/01/18 12:05 03/01/18 12:05 General appearance: Present: no acute distress, well-nourished - EENT Eyes: Present: PERRL, EOM intact - Neck Neck: Present: supple, normal ROM - Respiratory Respiratory effort: normal Respiratory: bilateral: diminished, negative: rales, rhonchi, wheezing - Cardiovascular Rhythm: regular Heart Sounds: Present: S1 & S2 - Extremities Extremities: no ischemia, No edema Peripheral Pulses: within normal limits - Abdominal General gastrointestinal: Present: soft, non-tender, non-distended, normal bowel sounds - Integumentary Integumentary: Present: clear, warm - Musculoskeletal Musculoskeletal: strength equal bilaterally - Psychiatric Psychiatric: appropriate mood/affect, cooperative - Neurologic Neurologic: CNII-XII intact, moves all extremities Plan Diet: regular Additional Instructions: Avoid NSAID group of medications. If you notices any new episodes of bleeding contact M.D. or go to emergency room Follow up with: COLLEEN MCGRAW MD [Primary Care Provider] - 3-5 Days MAXINE PORTER MD [Staff Physician] - 14 Days Prescriptions: Ferrous Sulfate [Feosol 325 MG tab] 325 mg PO BID #60 tablet Pantoprazole [Protonix TAB] 40 mg PO BID #60 tablet
--- NOTE | 2018-03-01 15:28 | Gastroenterology Progress Note ---
<MELITON OSEGUERA - Last Filed: 03/01/18 15:28> Assessment and Plan 1.anemia/GI bleed -H/H 7.2/20.3-stable -continue to monitor H/H and transfuse as needed -s/p EGD that showed duodenal ulcer with heme spot but no high risk bleeding l esions -clinically, patient is stable with no active signs of bleeding overnight or this am. Denies abd pain or N/V. Tolerating clears -okay to advance diet -continue PPI BID -avoid NSAIDs -continue supportive care -okay to be d/c per GI standpoint on PPI with follow up in clinic in 2-3 weeks for outpatient colonoscopy (check H pylori serologies; no bx done during EGD) -will sign off, please call if needed Subjective Date of service: 03/01/18 Principal diagnosis: GI bleed Interval history: No active signs of bleeding overnight or this am Objective - Constitutional Vitals: Temp Pulse Resp BP Pulse Ox 98.5 F 95 H 18 134/77 97 03/01/18 12:05 03/01/18 12:05 03/01/18 12:05 03/01/18 12:05 03/01/18 12:05 General appearance: no acute distress - Respiratory Respiratory: bilateral: CTA (anterior) - Cardiovascular Rhythm: regular Heart Sounds: Present: S1 & S2 - Gastrointestinal General gastrointestinal: Present: soft, non-tender, non-distended, normal bowel sounds - Labs CBC & Chem 7: 03/01/18 06:20 03/01/18 06:20 Labs: Laboratory Results - last 24 hr 02/28/18 03/01/18 03/01/18 23:30 06:20 06:20 WBC 4.2 L RBC 1.92 L Hgb 7.5 L 7.2 L Hct 21.9 L 20.3 L MCV 106 H MCH 38 H MCHC 35 H RDW 15.5 H Plt Count 174 Lymph % (Auto) 33.4 Hale % (Auto) 7.1 Eos % (Auto) 2.0 Baso % (Auto) 0.3 Lymph # 1.4 Hale # 0.3 Eos # 0.1 Baso # 0.0 Seg Neutrophils % 57.2 Seg Neutrophils # 2.4 Sodium 141 Potassium 4.1 Chloride 106.3 Carbon Dioxide 26 Anion Gap 13 BUN 4 L Creatinine 0.4 L Estimated GFR > 60 BUN/Creatinine Ratio 10 Glucose 88 Calcium 7.9 L <MAXINE PORTER - Last Filed: 03/01/18 19:22> Assessment and Plan Pt seen and examined. Agree with note above. Objective - Constitutional Vitals: Temp Pulse Resp BP Pulse Ox 98.5 F 95 H 18 134/77 97 03/01/18 12:05 03/01/18 12:05 03/01/18 12:05 03/01/18 12:05 03/01/18 12:05 - Labs CBC & Chem 7: 03/01/18 06:20 03/01/18 06:20 Labs: Laboratory Results - last 24 hr 02/28/18 03/01/18 03/01/18 23:30 06:20 06:20 WBC 4.2 L RBC 1.92 L Hgb 7.5 L 7.2 L Hct 21.9 L 20.3 L MCV 106 H MCH 38 H MCHC 35 H RDW 15.5 H Plt Count 174 Lymph % (Auto) 33.4 Hale % (Auto) 7.1 Eos % (Auto) 2.0 Baso % (Auto) 0.3 Lymph # 1.4 Hale # 0.3 Eos # 0.1 Baso # 0.0 Seg Neutrophils % 57.2 Seg Neutrophils # 2.4 Sodium 141 Potassium 4.1 Chloride 106.3 Carbon Dioxide 26 Anion Gap 13 BUN 4 L Creatinine 0.4 L Estimated GFR > 60 BUN/Creatinine Ratio 10 Glucose 88 Calcium 7.9 L
== END 2018-03-01 18:30 | disposition home or self-care (01) | DRG 378 ==
LOC: ED 13:08 → 3A 18:51
PROVIDERS: ADMIT Internal Medicine; ATTEND Internal Medicine
PROC: 30233N1 Transfusion of Nonautologous Red Blood Cells into Peripheral Vein, Percutaneous Approach (ICD-10-PCS; principal; 2018-02-27)
PROC: 0DJ08ZZ Inspection of Upper Intestinal Tract, Via Natural or Artificial Opening Endoscopic (ICD-10-PCS; 2018-02-28)
DX: K26.4 Chronic or unspecified duodenal ulcer with hemorrhage (principal); D62 Acute posthemorrhagic anemia; E44.0 Moderate protein-calorie malnutrition; I10 Essential (primary) hypertension; K21.9 Gastro-esophageal reflux disease without esophagitis; Z82.49 Family history of ischemic heart disease and other diseases of the circulatory system; Z87.11 Personal history of peptic ulcer disease; Z88.0 Allergy status to penicillin; Z79.899 Other long term (current) drug therapy; Z68.26 Body mass index [BMI] 26.0-26.9, adult
CPT/HCPCS: 36415; 80048; 80053; 82271; 83036; 85014; 85018; 85025; 85610; 85730; 86850; 86900; 86901; 86920; 90686; 96361; 96374; 96375; G0378; C9113; J1170; J2250; J2405; J2704; J3010; J7030; J7040; J7042; P9016

== ENCOUNTER 2018-03-03 01:36 | Inpatient (IN) | payer SELFPAY ==
[2018-03-03 02:50] LABS: Basophils % (Auto) 0.6 % (0.0-1.8); Eosinophils # (Auto) 0.1 K/mm3 (0.0-0.4); Eosinophils % (Auto) 1.7 % (0.0-4.3); Hematocrit 27.1 % (30.3-42.9); Hemoglobin 9.2 gm/dl (10.1-14.3); Lymphocytes # (Auto) 1.6 K/mm3 (1.2-5.4); Lymphocytes % (Auto) 25.5 % (13.4-35.0); Mean Corpuscular HGB Conc 34 % (30-34); Mean Corpuscular Volume 107 fl (79-97); Monocytes # (Auto) 0.5 K/mm3 (0.0-0.8); Monocytes % (Auto) 7.4 % (0.0-7.3); Platelet Count 370 K/mm3 (140-440); Red Blood Count 2.54 M/mm3 (3.65-5.03); Red Cell Distribution Width 15.6 % (13.2-15.2)
[2018-03-03 03:01] LABS: INR 0.97 (0.87-1.13)
[2018-03-03 03:02] LABS: Partial Thromboplastin Time 22.9 Sec. (24.2-36.6)
[2018-03-03 03:09] LABS: Alanine Aminotransferase 20 units/L (7-56); Albumin 4.2 g/dL (3.9-5); BUN/Creatinine Ratio 19; Blood Urea Nitrogen 13 mg/dL (7-17); Calcium 9.2 mg/dL (8.4-10.2); Hemolysis Index 24
[2018-03-03] MEDS: NACL 0.9% 1000 ML 1,000 ML IV ONE ×2 (03:55→04:18)
[2018-03-03] MEDS ORDERED: ZOFRAN IV ONE (06:29)
--- NOTE | 2018-03-03 06:34 | Emergency Department Report ---
ED Abdominal Pain HPI - General Chief Complaint: GI Bleed Stated Complaint: DIZZY BLEEDING Time Seen by Provider: 03/03/18 06:20 Source: patient Mode of arrival: Ambulatory Limitations: No Limitations - History of Present Illness Initial Comments: Patient is 52 years old female with history of hypertension and recent GI bleed. Patient received 1 unit of PRBC. Patient was just released from the hospital 2 days ago. Patient had a upper GI endoscopy by Dr. Araiza. Patient found to have a duodenal ulcer and erosive esophagitis. Patient stated that she did not have any bowel movement since she left the hospital but she's been having nausea and diffuse abdominal pain. Patient stated that she has been feeling dizzy all the time and weak all over. Patient denied any fever or chills. No hematemesis, hematochezia, melena or hemoptysis. MD Complaint: abdominal pain -: days(s) Location: diffuse Radiation: none Migration to: no migration Severity scale (0 -10): 6 Quality: cramping, sharp - Related Data Previous Rx's Medication Instructions Recorded Last Taken Type Moxifloxacin HCl [Avelox] 400 mg PO QDAY #5 tablet 01/04/14 Unknown Rx Ferrous Sulfate [Feosol 325 MG tab] 325 mg PO BID #60 tablet 03/01/18 Unknown Rx Pantoprazole [Protonix TAB] 40 mg PO BID #60 tablet 03/01/18 Unknown Rx Allergies Allergy/AdvReac Type Severity Reaction Status Date / Time Penicillins Allergy Swelling Verified 12/28/13 17:26 ED Review of Systems ROS: Stated complaint: DIZZY BLEEDING Other details as noted in HPI Comment: All other systems reviewed and negative Constitutional: denies: chills, fever Respiratory: denies: cough, orthopnea, shortness of breath, SOB with exertion, SOB at rest, wheezing Cardiovascular: palpitations. denies: chest pain Gastrointestinal: abdominal pain, nausea. denies: vomiting, diarrhea, cons tipation, hematemesis, melena, hematochezia Musculoskeletal: back pain Neurological: weakness. denies: headache, numbness, paresthesias, confusion, a bnormal gait ED Past Medical Hx - Past Medical History Previous Medical History?: Yes Hx Hypertension: Yes (no antihypertensives in several years. BP well controlled since admission.) Hx Heart Attack/AMI: No Hx Congestive Heart Failure: No Hx Diabetes: No Hx GERD: Yes Hx Liver Disease: No Hx Renal Disease: No Hx Seizures: No Hx Asthma: No Hx COPD: No Additional medical history: anemia. Bleeding ulcer - Surgical History Additional Surgical History: Endoscopy for bleeding ulcer 5 years ago. endoscopy 03/01/2018 - Social History Smoking Status: Never Smoker Substance Use Type: None - Medications Home Medications: Home Medications Medication Instructions Recorded Confirmed Last Taken Type Moxifloxacin HCl [Avelox] 400 mg PO QDAY #5 tablet 01/04/14 02/28/18 Unknown Rx Ferrous Sulfate [Feosol 325 MG tab] 325 mg PO BID #60 tablet 03/01/18 Unknown Rx Pantoprazole [Protonix TAB] 40 mg PO BID #60 tablet 03/01/18 Unknown Rx ED Physical Exam - General Limitations: No Limitations General appearance: alert, in no apparent distress, other (pale) - Head Head exam: Present: atraumatic, normocephalic, normal inspection - Eye Eye exam: Present: normal appearance, PERRL - ENT ENT exam: Present: normal exam, normal orophraynx, mucous membranes moist - Neck Neck exam: Present: normal inspection, full ROM. Absent: tenderness, meningismus, lymphadenopathy, thyromegaly - Respiratory Respiratory exam: Present: normal lung sounds bilaterally. Absent: respiratory distress, wheezes, rales, rhonchi, stridor, chest wall tenderness, accessory muscle use, decreased breath sounds, prolonged expiratory - Cardiovascular Cardiovascular Exam: Present: regular rate, normal rhythm, normal heart sounds - GI/Abdominal GI/Abdominal exam: Present: soft, normal bowel sounds. Absent: distended, tenderness, guarding, rebound, rigid, organomegaly, mass, bruit, pulsatile mass, hernia - Rectal Rectal exam: Present: normal rectal tone, heme (+) stool, black stool, hemorrhoids. Absent: fecal impaction, tenderness - Extremities Exam Extremities exam: Present: normal inspection, full ROM, normal capillary refill. Absent: pedal edema, calf tenderness - Back Exam Back exam: Present: normal inspection, full ROM. Absent: tenderness, CVA tenderness (R), CVA tenderness (L), muscle spasm, paraspinal tenderness, vertebral tenderness - Neurological Exam Neurological exam: Present: alert, oriented X3, CN II-XII intact, normal gait, reflexes normal - Skin Skin exam: Present: warm, intact, normal color ED Course Vital Signs 03/03/18 03/03/18 03/03/18 01:41 02:03 03:53 Temperature 98.8 F 98 F Pulse Rate 131 H 129 H 107 H Respiratory 16 18 16 Rate Blood Pressure 142/92 142/92 Blood Pressure 134/88 [Right] O2 Sat by Pulse 100 100 98 Oximetry - Consultations Consultation #1: 03/03/18 10:16 I discussed the patient is Dr. Araiza from GI. He advised to admit the patient to the hospitalist and he will see the patient is afternoon. ED Medical Decision Making - Lab Data Result diagrams: 03/03/18 02:19 03/03/18 02:19 - Radiology Data Radiology results: report reviewed Referring Physician: JESUS MYERS Patient Name: JELENA FRAUSTO Date of : 1965 Sex: Female Report Date: 2018-03-03 Report Status: [place] [id number] Cat Scan Report Signed Patient: JELENA FRAUSTO MR#: [id number] : 1965 Acct:[id number] Age/Sex: 52 / F ADM Date: 03/03/18 Loc: ED Attending Dr: Ordering Physician: JESUS MYERS Date of Service: 03/03/18 Procedure(s): CT abdomen pelvis w con Accession Number(s): [id number] cc: JESUS MYERS FINAL REPORT EXAM: CT ABDOMEN PELVIS W CON HISTORY: abdominal pain TECHNIQUE: CT images are acquired through the Abdomen and Pelvis in arterial and delayed phases following intravenous administration of contrast. Transaxial, coronal and sagittal reformations are provided. PRIORS: None FINDINGS: Partially visualized intrathoracic contents are unremarkable. The liver, gallbladder, pancreas, spleen, and adrenal glands are unremarkable. Kidneys are normal in size, axis and position. No hydroureteronephrosis. Nonobstructive left collecting system stones measure up to 6 millimeters. Urinary bladder is un remarkable. Anteverted uterus. No free fluid in the pelvis. Small and large bowel are normal in caliber. A left mid abdominal 3 centimeter jejunal-jejunal intussusception is present on both arterial and delayed phase imaging. No associated mass is identified. No findings of appendicitis. No free air, free fluid, or lymphadenopathy identified. Aorta is normal in course and caliber. Superficial soft tissues are unremarkable. No acute or aggressive appearing skeletal findings. IMPRESSION: No definite acute findings in the abdomen or pelvis. There is a jejunal-jejunal intussusception in the midleft abdomen measuring approximately 3 cm in length, which is favored to be transient based on size and location. No evidence of obstruction or associated mass. Consider follow-up imaging for persistent symptoms. Nonobstructive left nephrolithiasis measures up to 6 millimeters. Transcribed By: CAYLA Dictated By: PEDRO BERGER MD Electronically Authenticated By: PEDRO BERGER MD Signed Date/Time: 03/03/18846 DD/ 7 TD/TT: 03/03/18847 - Medical Decision Making Patient is 52 years old female with history of hypertension and recent GI bleed. Patient received 1 unit of PRBC. Patient was just released from the hospital 2 days ago. Patient had a upper GI endoscopy by Dr. Araiza. Patient found to have a duodenal ulcer and erosive esophagitis. Patient stated that she did not have any bowel movement since she left the hospital but she's been having nausea and diffuse abdominal pain. Patient stated that she has been feeling dizzy all the time and weak all over. Patient denied any fever or chills. No hematemesis, hematochezia, melena or hemoptysis. CT abdomen and pelvis is negative for except for possible transient jejunostomy jejunal intussusception. I discussed the patient was Dr. raitail was stated that his coming to examine the patient in the hospital. I discussed the patient was Dr. ELIZABETH, she advised to admit the patient to Dr. Murdock. Critical Care Time: Yes Critical care time in (mins) excluding proc time.: 30 Critical care attestation.: If time is entered above; I have spent that time in minutes in the direct care of this critically ill patient, excluding procedure time. ED Disposition Clinical Impression: GI (gastrointestinal hemorrhage), Intussusception intestine Disposition: OP ADMIT IP TO THIS HOSP Is pt being admited?: Yes Condition: Stable Referrals: PRIMARY CARE, [Primary Care Provider] - 3-5 Days Forms: Accompanied Note
--- NOTE | 2018-03-03 08:47 | Cat Scan Report ---
FINAL REPORT EXAM: CT ABDOMEN PELVIS W CON HISTORY: abdominal pain TECHNIQUE: CT images are acquired through the Abdomen and Pelvis in arterial and delayed phases foll owing intravenous administration of contrast. Transaxial, coronal and sagittal reformations are provi ded. PRIORS: None FINDINGS: Partially visualized intrathoracic contents are unremarkable. The liver, gallbladder, pancreas, spleen, and adrenal glands are unremarkable. Kidneys are normal in size, axis and position. No hydroureteronephrosis. Nonobstructive left collecti ng system stones measure up to 6 millimeters. Urinary bladder is unremarkable. Anteverted uterus. No free fluid in the pelvis. Small and large bowel are normal in caliber. A left mid abdominal 3 centimeter jejunal-jejunal intuss usception is present on both arterial and delayed phase imaging. No associated mass is identified. No findings of appendicitis. No free air, free fluid, or lymphadenopathy identified. Aorta is normal in course and caliber. Superficial soft tissues are unremarkable. No acute or aggressive appearing skeletal findings. IMPRESSION: No definite acute findings in the abdomen or pelvis. There is a jejunal-jejunal intussusception in the midleft abdomen measuring approximately 3 cm in [facility], which is favored to be transient based on size and location. No evidence of obstruction or assoc iated mass. Consider follow-up imaging for persistent symptoms. Nonobstructive left nephrolithiasis measures up to 6 millimeters.
--- NOTE | 2018-03-03 10:48 | Gastroenterology Consultation ---
<MELITON OSEGUERA - Last Filed: 03/03/18 11:24> History of Present Illness - Reason for Consult Consult date: 03/03/18 GI bleed Requesting physician: JESUS MYERS - History of Present Illness Patient is a 52 y/o female with PMH of HTN, GERD, and PUD who is well known to our service and was just discharged 2 days ago after being hospitalized for a GI bleed 2/2 a duodenal ulcer found by EGD on 02/28/18 who presented to ED with c/o diffuse abdominal pain with associated nausea and dizziness. She reports no active signs of bleeding or BM since discharge, however was found to have black heme positive stool on rectal exam per ER provider (possibly sequela?). No hematemesis or hematochezia. H/H on admission was 9.2/27.1, which is improved compared to previous labs. Abd CT showed jejunal-jejunal intussusception but no evidence of obstruction or mass to which surgery has been consulted. Denies fever, CP, SOB, wt loss, vomiting, diarrhea, or constipation. Has been taking protonix and iron supplement at home. Past History Past Medical History: GERD, hypertension, other (PUD) Past Surgical History: No surgical history, Other (last EGD 02/28/18) Social history: denies: smoking, alcohol abuse Family history: no significant family history Medications and Allergies Allergies Allergy/AdvReac Type Severity Reaction Status Date / Time Penicillins Allergy Swelling Verified 12/28/13 17:26 Home Medications Medication Instructions Recorded Confirmed Last Taken Type Ferrous Sulfate [Feosol 325 MG tab] 325 mg PO BID #60 tablet 03/01/18 03/03/18 Unknown Rx Pantoprazole [Protonix TAB] 40 mg PO BID #60 tablet 03/01/18 03/03/18 Unknown Rx Active Meds: Active Medications Pantoprazole Sodium 80 mg/ (Sodium Chloride) 100 mls @ 10 mls/hr IV DIRECT CONCEPCIÓN medications reviewed/updated as required Review of Systems - Review of Systems All systems: negative Constitutional: other (dizziness) Gastrointestinal: abdominal pain, nausea Exam - Constitutional Vital Signs: Temp Pulse Resp BP Pulse Ox 98 F 107 H 16 134/88 98 03/03/18 02:03 03/03/18 03:53 03/03/18 03:53 03/03/18 03:53 03/03/18 03:53 General appearance: no acute distress - EENT Eyes: PERRL, EOM intact ENT: hearing intact - Respiratory Respiratory: bilateral: CTA - Cardiovascular Rhythm: other (tachycardia) - Gastrointestinal General gastrointestinal: Present: soft, non-tender, non-distended, normal bowel sounds - Neurologic Neurological: alert and oriented x3 - Labs CBC & Chem 7: 03/03/18 02:19 03/03/18 02:19 Lab Results: Laboratory Results - last 24 hr 03/03/18 03/03/18 03/03/18 02:19 02:19 02:19 WBC 6.2 RBC 2.54 L Hgb 9.2 L Hct 27.1 L D MCV 107 H MCH 36 H MCHC 34 RDW 15.6 H Plt Count 370 D Lymph % (Auto) 25.5 [place] % (Auto) 7.4 H Eos % (Auto) 1.7 Baso % (Auto) 0.6 Lymph # 1.6 [place] # 0.5 Eos # 0.1 Baso # 0.0 Seg Neutrophils % 64.8 Seg Neutrophils # 4.0 PT 13.3 INR 0.97 APTT 22.9 L Sodium 140 Potassium 4.3 Chloride 102.4 Carbon Dioxide 22 Anion Gap 20 BUN 13 Creatinine 0.7 D Estimated GFR > 60 BUN/Creatinine Ratio 19 Glucose 90 Calcium 9.2 D Total Bilirubin 0.40 AST 40 ALT 20 Alkaline Phosphatase 75 Total Protein 7.0 D Albumin 4.2 Albumin/Globulin Ratio 1.5 Lipase 23 Blood Type Antibody Screen 03/03/18 02:19 WBC RBC Hgb Hct MCV MCH MCHC RDW Plt Count Lymph % (Auto) [place] % (Auto) Eos % (Auto) Baso % (Auto) Lymph # [place] # Eos # Baso # Seg Neutrophils % Seg Neutrophils # PT INR APTT Sodium Potassium Chloride Carbon Dioxide Anion Gap BUN Creatinine Estimated GFR BUN/Creatinine Ratio Glucose Calcium Total Bilirubin AST ALT Alkaline Phosphatase Total Protein Albumin Albumin/Globulin Ratio Lipase Blood Type A POSITIVE Antibody Screen Negative Assessment and Plan 1.anemia/GI bleed? 2.H/O PUD 3.abdominal pain -Patient was recently d/c 2 days go after a GI bleed 2/2 peptic ulcer. She now presents with c/o diffuse abd pain with associated nausea and dizziness. -no active signs of bleeding (rectal per ER provider showed black heme +stool - possibly sequela?) -H/H 9.2/27.1 (improved compared to previous)-continue to monitor H/H and transfuse as needed -BUN WNL -abd CT showed intestinal intussusception- surgery consulted -EGD 02/28/18 showed duodenal ulcer with heme spot but no high risk bleeding lesi ons -currently HD stable -no plans for repeat EGD at this time, will consider based on progress -continue PPI -avoid NSAIDs -continue supportive care -okay to proceed with repeat CT with oral contrast as per surgery recommendations -will follow <MAXINE PORTER - Last Filed: 03/03/18 19:28> Medications and Allergies Active Meds: Active Medications Acetaminophen (Tylenol) 650 mg PO Q4H PRN PRN Reason: Pain MILD(1-3)/Fever >100.5/HALEY Pantoprazole Sodium 80 mg/ (Sodium Chloride) 100 mls @ 10 mls/hr IV DIRECT CONCEPCIÓN Last Admin: 03/03/18 11:38 Dose: 8 mg/hr, 10 mls/hr Documented by: Morphine Sulfate (Morphine) 1 mg IV Q4H PRN PRN Reason: Pain , Severe (7-10) Last Admin: 03/03/18 16:41 Dose: 1 mg Documented by: Ondansetron HCl (Zofran) 4 mg IV Q8H PRN PRN Reason: Nausea And Vomiting Sodium Chloride (Sodium Chloride Flush Syringe 10 Ml) 10 ml IV BID CONCEPCIÓN Sodium Chloride (Sodium Chloride Flush Syringe 10 Ml) 10 ml IV PRN PRN PRN Reason: LINE FLUSH Exam - Constitutional Vital Signs: Temp Pulse Resp BP Pulse Ox 98.8 F 101 H 16 105/61 98 03/03/18 16:08 03/03/18 16:08 03/03/18 16:08 03/03/18 16:08 03/03/18 16:08 - Labs CBC & Chem 7: 03/03/18 02:19 03/03/18 02:19 Lab Results: Laboratory Results - last 24 hr 03/03/18 03/03/18 03/03/18 02:19 02:19 02:19 WBC 6.2 RBC 2.54 L Hgb 9.2 L Hct 27.1 L D MCV 107 H MCH 36 H MCHC 34 RDW 15.6 H Plt Count 370 D Lymph % (Auto) 25.5 [place] % (Auto) 7.4 H Eos % (Auto) 1.7 Baso % (Auto) 0.6 Lymph # 1.6 [place] # 0.5 Eos # 0.1 Baso # 0.0 Seg Neutrophils % 64.8 Seg Neutrophils # 4.0 PT 13.3 INR 0.97 APTT 22.9 L Sodium 140 Potassium 4.3 Chloride 102.4 Carbon Dioxide 22 Anion Gap 20 BUN 13 Creatinine 0.7 D Estimated GFR > 60 BUN/Creatinine Ratio 19 Glucose 90 Calcium 9.2 D Total Bilirubin 0.40 AST 40 ALT 20 Alkaline Phosphatase 75 Total Protein 7.0 D Albumin 4.2 Albumin/Globulin Ratio 1.5 Lipase 23 Blood Type Antibody Screen 03/03/18 02:19 WBC RBC Hgb Hct MCV MCH MCHC RDW Plt Count Lymph % (Auto) [place] % (Auto) Eos % (Auto) Baso % (Auto) Lymph # [place] # Eos # Baso # Seg Neutrophils % Seg Neutrophils # PT INR APTT Sodium Potassium Chloride Carbon Dioxide Anion Gap BUN Creatinine Estimated GFR BUN/Creatinine Ratio Glucose Calcium Total Bilirubin AST ALT Alkaline Phosphatase Total Protein Albumin Albumin/Globulin Ratio Lipase Blood Type A POSITIVE Antibody Screen Negative Assessment and Plan Pt seen and examined. Agree with note above. Unclear/low suspicion for active gi bleeding at present time. will manage conservatively from gi stand point. If H/H drops or other concerns, will plan to repeat EGD at that time.
--- NOTE | 2018-03-03 10:53 | Consultation ---
History of Present Illness Consult date: 03/03/18 Reason for consult: abdominal pain Chief complaint: 52 yo F with hx of GIB presents to ER with c/o dull lower abdominal pain, blood per rectum. The patient was recently hospitalized at [facility] for GIB and underwent endoscopy and blood transfusion. Her abdominal pain is intermittent and has been ongoing for a long time. It is dull and localized to the lower abdomen. No exacerbating or alleviating factors. She has been having nausea for several d ays, no vomiting. No f/c, cp, sob. She is having flatus and last BM was Thursday and was normal. She c/o bright red and dark blood in her stool. Medications and Allergies Allergies Allergy/AdvReac Type Severity Reaction Status Date / Time Penicillins Allergy Swelling Verified 12/28/13 17:26 Home Medications Medication Instructions Recorded Confirmed Last Taken Type Ferrous Sulfate [Feosol 325 MG tab] 325 mg PO BID #60 tablet 03/01/18 03/03/18 Unknown Rx Pantoprazole [Protonix TAB] 40 mg PO BID #60 tablet 03/01/18 03/03/18 Unknown Rx Active Meds: Active Medications Pantoprazole Sodium 80 mg/ (Sodium Chloride) 100 mls @ 10 mls/hr IV DIRECT CONCEPCIÓN Metoclopramide HCl (Reglan) 10 mg IV ONCE ONE Stop: 03/03/18 11:48 Review of Systems All systems: negative (10 PT ROS performed and negative except for that listed in HPI) Exam Vital Signs Temp Pulse Resp BP Pulse Ox 98.8 F 131 H 16 142/92 100 03/03/18 01:41 03/03/18 01:41 03/03/18 01:41 03/03/18 01:41 03/03/18 01:41 Narrative exam: Gen: AAOx3. NAD ENT: no scleral icterus or conjunctival pallor. mucous membranes dry CV: S!, S2+ ResP; even and unlabored Abd: soft, NT, ND Ext: no c/c/e Results - Labs 03/03/18 02:19 03/03/18 02:19 Abnormal lab results 03/03/18 03/03/18 Range/Units 02:19 02:19 RBC 2.54 L (3.65-5.03) M/mm3 Hgb 9.2 L (10.1-14.3) gm/dl Hct 27.1 L D (30.3-42.9) % MCV 107 H (79-97) fl MCH 36 H (28-32) pg RDW 15.6 H (13.2-15.2) % [place] % (Auto) 7.4 H (0.0-7.3) % APTT 22.9 L (24.2-36.6) Sec. Diabetes panel 03/03/18 Range/Units 02:19 Sodium 140 (137-145) mmol/L Potassium 4.3 (3.6-5.0) mmol/L Chloride 102.4 (98-107) mmol/L Carbon Dioxide 22 (22-30) mmol/L BUN 13 (7-17) mg/dL Creatinine 0.7 D (0.7-1.2) mg/dL Glucose 90 (65-100) mg/dL Calcium 9.2 D (8.4-10.2) mg/dL AST 40 (5-40) units/L ALT 20 (7-56) units/L Alkaline Phosphatase 75 (35-129) units/L Total Protein 7.0 D (6.3-8.2) g/dL Albumin 4.2 (3.9-5) g/dL Calcium panel 03/03/18 Range/Units 02:19 Calcium 9.2 D (8.4-10.2) mg/dL Albumin 4.2 (3.9-5) g/dL Pituitary panel 03/03/18 Range/Units 02:19 Sodium 140 (137-145) mmol/L Potassium 4.3 (3.6-5.0) mmol/L Chloride 102.4 (98-107) mmol/L Carbon Dioxide 22 (22-30) mmol/L BUN 13 (7-17) mg/dL Creatinine 0.7 D (0.7-1.2) mg/dL Glucose 90 (65-100) mg/dL Calcium 9.2 D (8.4-10.2) mg/dL Adrenal panel 03/03/18 Range/Units 02:19 Sodium 140 (137-145) mmol/L Potassium 4.3 (3.6-5.0) mmol/L Chloride 102.4 (98-107) mmol/L Carbon Dioxide 22 (22-30) mmol/L BUN 13 (7-17) mg/dL Creatinine 0.7 D (0.7-1.2) mg/dL Glucose 90 (65-100) mg/dL Calcium 9.2 D (8.4-10.2) mg/dL Total Bilirubin 0.40 (0.1-1.2) mg/dL AST 40 (5-40) units/L ALT 20 (7-56) units/L Alkaline Phosphatase 75 (35-129) units/L Total Protein 7.0 D (6.3-8.2) g/dL Albumin 4.2 (3.9-5) g/dL - Imaging CT scan - abdomen: report reviewed, image reviewed CT scan - pelvis: report reviewed, image reviewed Assessment and Plan 52 yo F with 1. incidental intestinal intussusception on CT scan 2. GIB 3. abdominal pain Plan; 1. NPO 2. IVF 3. GI consult - possible EGD today 4. repeat CT scan A/P with oral contrast after EGD. Intussusception is likely peristalsis and is transient, there is no obstruction Discussed with GI - no plans to do EGD today. Dr. Hamilton to order repeat CT scan. May start diet after CT Thank you, please call with questions
[2018-03-03] MEDS ORDERED: REGLAN ONE ×2 (11:16→14:04)
--- NOTE | 2018-03-03 11:16 | History and Physical Report ---
History of Present Illness Date of examination: 03/03/18 Date of admission: 03/03/18 10:26 Chief complaint: gi bleed History of present illness: Patient is 52 years old female with history of hypertension and recent GI bleed. Patient received 1 unit of PRBC. Patient was just released from the hospital 2 days ago. Patient had a upper GI endoscopy by Dr. Araiza. Patient found to have a duodenal ulcer and erosive esophagitis. Patient stated that she did not have any bowel movement since she left the hospital but she's been having nausea and diffuse abdominal pain. Patient stated that she has been feeling dizzy all the time and weak all over. Patient denied any fever or chills. No hematemesis, hematochezia, melena or hemoptysis. Past History Past Medical History: GERD, hypertension, other (duodenal ulcer) Past Surgical History: Other (Endoscopy for bleeding ulcer 5 years ago. endoscopy 03/01/2018) Social history: no significant social history Family history: no significant family history Medications and Allergies Allergies Allergy/AdvReac Type Severity Reaction Status Date / Time Penicillins Allergy Swelling Verified 12/28/13 17:26 Home Medications Medication Instructions Recorded Confirmed Last Taken Type Ferrous Sulfate [Feosol 325 MG tab] 325 mg PO BID #60 tablet 03/01/18 03/03/18 Unknown Rx Pantoprazole [Protonix TAB] 40 mg PO BID #60 tablet 03/01/18 03/03/18 Unknown Rx Active Meds: Active Medications Pantoprazole Sodium 80 mg/ (Sodium Chloride) 100 mls @ 10 mls/hr IV DIRECT CONCEPCIÓN Metoclopramide HCl (Reglan) 10 mg IV ONCE ONE Stop: 03/03/18 11:48 Review of Systems All systems: negative Exam - Constitutional Vitals: Temp Pulse Resp BP Pulse Ox 98 F 107 H 16 134/88 98 03/03/18 02:03 03/03/18 03:53 03/03/18 03:53 03/03/18 03:53 03/03/18 03:53 General appearance: Present: no acute distress, well-nourished - EENT Eyes: Present: PERRL ENT: hearing intact, clear oral mucosa - Neck Neck: Present: supple, normal ROM - Respiratory Respiratory effort: normal Respiratory: bilateral: CTA - Cardiovascular Heart Sounds: Present: S1 & S2. Absent: rub, click - Extremities Extremities: pulses symmetrical, No edema Peripheral Pulses: within normal limits - Abdominal General gastrointestinal: Present: soft, non-tender, non-distended, normal bowel sounds Female genitourinary: Present: normal - Integumentary Integumentary: Present: clear, warm, dry - Musculoskeletal Musculoskeletal: gait normal, strength equal bilaterally - Psychiatric Psychiatric: appropriate mood/affect, intact judgment & insight - Neurologic Neurologic: CNII-XII intact, moves all extremities Results - Labs CBC & Chem 7: 03/03/18 02:19 03/03/18 02:19 Labs: Laboratory Last Values WBC 6.2 K/mm3 (4.5-11.0) 03/03/18 02:19 RBC 2.54 M/mm3 (3.65-5.03) L 03/03/18 02:19 Hgb 9.2 gm/dl (10.1-14.3) L 03/03/18 02:19 Hct 27.1 % (30.3-42.9) L D 03/03/18 02:19 MCV 107 fl (79-97) H 03/03/18 02:19 MCH 36 pg (28-32) H 03/03/18 02:19 MCHC 34 % (30-34) 03/03/18 02:19 RDW 15.6 % (13.2-15.2) H 03/03/18 02:19 Plt Count 370 K/mm3 (140-440) D 03/03/18 02:19 Lymph % (Auto) 25.5 % (13.4-35.0) 03/03/18 02:19 [place] % (Auto) 7.4 % (0.0-7.3) H 03/03/18 02:19 Eos % (Auto) 1.7 % (0.0-4.3) 03/03/18 02:19 Baso % (Auto) 0.6 % (0.0-1.8) 03/03/18 02:19 Lymph # 1.6 K/mm3 (1.2-5.4) 03/03/18 02:19 [place] # 0.5 K/mm3 (0.0-0.8) 03/03/18 02:19 Eos # 0.1 K/mm3 (0.0-0.4) 03/03/18 02:19 Baso # 0.0 K/mm3 (0.0-0.1) 03/03/18 02:19 Seg Neutrophils % 64.8 % (40.0-70.0) 03/03/18 02:19 Seg Neutrophils # 4.0 K/mm3 (1.8-7.7) 03/03/18 02:19 PT 13.3 Sec. (12.2-14.9) 03/03/18 02:19 INR 0.97 (0.87-1.13) 03/03/18 02:19 APTT 22.9 Sec. (24.2-36.6) L 03/03/18 02:19 Sodium 140 mmol/L (137-145) 03/03/18 02:19 Potassium 4.3 mmol/L (3.6-5.0) 03/03/18 02:19 Chloride 102.4 mmol/L (98-107) 03/03/18 02:19 Carbon Dioxide 22 mmol/L (22-30) 03/03/18 02:19 Anion Gap 20 mmol/L 03/03/18 02:19 BUN 13 mg/dL (7-17) 03/03/18 02:19 Creatinine 0.7 mg/dL (0.7-1.2) D 03/03/18 02:19 Estimated GFR > 60 ml/min 03/03/18 02:19 BUN/Creatinine Ratio 19 % 03/03/18 02:19 Glucose 90 mg/dL (65-100) 03/03/18 02:19 Calcium 9.2 mg/dL (8.4-10.2) D 03/03/18 02:19 Total Bilirubin 0.40 mg/dL (0.1-1.2) 03/03/18 02:19 AST 40 units/L (5-40) 03/03/18 02:19 ALT 20 units/L (7-56) 03/03/18 02:19 Alkaline Phosphatase 75 units/L (35-129) 03/03/18 02:19 Total Protein 7.0 g/dL (6.3-8.2) D 03/03/18 02:19 Albumin 4.2 g/dL (3.9-5) 03/03/18 02:19 Albumin/Globulin Ratio 1.5 % 03/03/18 02:19 Lipase 23 units/L (13-60) 03/03/18 02:19 Blood Type A POSITIVE 03/03/18 02:19 Antibody Screen Negative 03/03/18 02:19 Assessment and Plan Assessment and plan: GI bleed. Patient's H&H appears stable. Patient with no active signs of bleeding overnight or this morning. GI consult. s/p EGD that showed duodenal ulcer with heme spot but no high risk bleeding lesions. Continue PPI BID, avoid NSAIDs Duodenal ulcer/erosive esophagitis. Continue as above. Intestinal intussusception. Surgery recommends repeat CT scan A/P with oral contrast after EGD. Etiology likely peristalsis and is transient, there is no obstruction
[2018-03-03] MEDS ORDERED: SODIUM CHLORIDE FLUSH SYRINGE 10 ML IV PRN (11:29)
[2018-03-03] MEDS ORDERED: TYLENOL PO PRN (11:29)
[2018-03-03] MEDS ORDERED: ZOFRAN IV PRN (11:29)
[2018-03-03] MEDS ORDERED: NACL 0.9% 1000 ML 1,000 ML IV ONE (11:36)
[2018-03-03] MEDS: PROTONIX 80 MG in NACL 0.9% 100 ML IV SCH ×2 (11:38→22:13)
[2018-03-03] MEDS ORDERED: REGLAN IV ONE (11:47)
--- NOTE | 2018-03-03 12:23 | Post Anesthesia Evaluation ---
- Post Anesthesia Evaluation Patient Participated: Yes Airway Patent: Yes Stable Respiratory Function: Yes Nausea/Vomiting: No Temp > 96.8F: Yes Pain Manageable: Yes Adequeate Hydration: Yes Anesthesia Complications: No Block Receding Appropriately: Not Applicable Patient on Ventilator: No
--- NOTE | 2018-03-03 15:06 | Cat Scan Report ---
CT ABDOMEN PELVIS WITHOUT CONTRAST: HISTORY: Abdominal pain. COMPARISON: CT abdomen and pelvis with contrast earlier today at 0719 hours. TECHNIQUE: Helical CT in 1.25mm intervals without IV contrast. Sagittal and coronal reconstructions. FINDINGS: Lung bases: Normal. Liver: Normal. Biliary system: Normal. Pancreas: Normal. Spleen: Normal. Kidneys/ureters/bladder: Residual IV contrast is present in the renal collecting systems. No evidence for obstruction. Adrenal glands: Normal. Aorta: Normal. Intestines: The previously described jejunal intussusception has resolved since earlier today. The bowel loops are within normal limits. No evidence for obstruction or focal inflammation. Appendix: Normal. Pelvic viscera: Normal. Ascites: None. Adenopathy: None. Musculoskeletal: Intact. Mild scoliosis is noted. IMPRESSION: No acute process is identified. Intussusception in the jejunum has resolved since the exam earlier today.
--- NOTE | 2018-03-03 16:05 | Event Note ---
Date: 03/03/[address] scan A/P report reviewed - previously seen jejunal-jejunal intussusception has resolved. Bowel loops are within normal limits. May start reg diet. Will s/o. Please call with questions.
[2018-03-03] MEDS: MORPHINE IV PRN ×2 (16:41→22:11)
[2018-03-03] MEDS: SODIUM CHLORIDE FLUSH SYRINGE 10 ML IV SCH (22:13)
[2018-03-04] MEDS: PROTONIX 80 MG in NACL 0.9% 100 ML IV SCH (07:19)
[2018-03-04] MEDS: MORPHINE IV PRN (08:22)
--- NOTE | 2018-03-04 08:30 | Discharge Summary ---
Providers - Providers Date of Admission: 03/03/18 10:26 Date of discharge: 03/04/18 Attending physician: ALMAS PARRA 03/03/18 10:14 Consult to Physician [CONS] Stat Comment: Consulting Provider: MAXINE ARAIZA Physician Instructions: Reason For Exam: GI BLEED 03/03/18 10:37 Consult to Physician [CONS] Stat Comment: Consulting Provider: ERIC CHAVEZ Physician Instructions: Reason For Exam: intussusception Primary care physician: [employer]PORT [employer]IC [employer]PARTMENT MANAGER Hospitalization Reason for admission: abd pain Condition: Stable Hospital course: Patient is 52 years old female with history of hypertension and recent GI bleed. Patient received 1 unit of PRBC. Patient was just released from the hospital 2 days ago. Patient had a upper GI endoscopy by Dr. Araiza. Patient found to have a duodenal ulcer and erosive esophagitis. Patient stated that she did not have any bowel movement since she left the hospital but she's been having nausea and diffuse abdominal pain. The patient was evaluated through the emergency department and found to have incidental intestinal intussusception on CT scan. The patient was admitted with diagnosis of abdominal pain, GI bleed and intestinal intussusception. Patient saw GI and surgery consultation. GI performed EGD that showed duodenal ulcer with heme spot but no high risk bleeding lesions. GI recommended PPI BID, avoid NSAIDs. Surgery saw the patient in consultation and recommended a repeat CT scan of the abdomen and pelvis after the EGD. The previously seen jejunal-jejunal intussusception had resolved. The patient's diet was advanced which she tolerated. GI and surgery felt the patient could discharge home and follow-up as an outpatient. Dedicated discharge time 32 minutes. Disposition: - TO HOME OR SELFCARE Time spent for discharge: 32 - Discharge Diagnoses (1) GI bleed Status: Acute (2) Intussusception intestine Status: Acute (3) Duodenal ulcer Status: Acute (4) Erosive esophagitis Status: Acute Core Measure Documentation - Palliative Care Palliative Care/ Comfort Measures: Not Applicable - Core Measures Any of the following diagnoses?: none Exam - Constitutional Vitals: Temp Pulse Resp BP Pulse Ox 98.4 F 89 18 101/67 99 03/04/18 07:45 03/04/18 07:45 03/04/18 07:45 03/04/18 07:45 03/04/18 07:45 General appearance: Present: no acute distress, well-nourished - EENT Eyes: Present: PERRL ENT: hearing intact, clear oral mucosa - Neck Neck: Present: supple, normal ROM - Respiratory Respiratory effort: normal Respiratory: bilateral: CTA - Cardiovascular Heart Sounds: Present: S1 & S2. Absent: rub, click - Extremities Extremities: pulses symmetrical, No edema Peripheral Pulses: within normal limits - Abdominal General gastrointestinal: Present: soft, non-tender, non-distended, normal bowel sounds Female genitourinary: Present: normal - Integumentary Integumentary: Present: clear, warm, dry - Musculoskeletal Musculoskeletal: gait normal, strength equal bilaterally - Psychiatric Psychiatric: appropriate mood/affect, intact judgment & insight - Neurologic Neurologic: CNII-XII intact, moves all extremities Plan Activity: no restrictions Weight Bearing Status: Full Weight Bearing Diet: regular Follow up with: PRIMARY CARE,MD [Primary Care Provider] - 3-5 Days ERIC CHAVEZ DO [Staff Physician] - 7 Days MELITON OSEGUERA NP [Advanced Practice Nurse] - 7 Days Forms: Accompanied Note Prescriptions: Ferrous Sulfate [Feosol 325 MG tab] 325 mg PO BID #60 tablet Pantoprazole [Protonix TAB] 40 mg PO BID #60 tablet
[2018-03-04] MEDS: SODIUM CHLORIDE FLUSH SYRINGE 10 ML IV SCH (10:00)
[2018-03-04 10:27] LABS: Hematocrit 22.5 % (30.3-42.9); Hemoglobin 7.6 gm/dl (10.1-14.3)
[2018-03-04 12:06] VITALS: BP 102/61
--- NOTE | 2018-03-04 12:49 | Gastroenterology Progress Note ---
<MELITON OSEGUERA - Last Filed: 03/04/18 12:52> Assessment and Plan 1.anemia/GI bleed? 2.H/O PUD 3.abdominal pain -H/H 7.07/31. -no active signs of bleeding this am -abd CT showed intestinal intussusception- now resolved per repeat CT -EGD 02/28/18 showed duodenal ulcer with heme spot but no high risk bleeding lesions -no plans for repeat EGD at this time unless overt bleeding develops -continue PPI -avoid NSAIDs -continue supportive care -if labs stable in am and no further bleeding, okay to be d/c per GI standpoint on PPI with follow up in clinic in 2-3 weeks for outpatient colonoscopy (check H pylori serologies; no bx done during EGD) Subjective Date of service: 03/04/18 Principal diagnosis: GI bleed Interval history: No acute distress. BM x 2 yesterday with stool now black but mixed with brown per pt. Denies abd pain or N/V. Tolerating diet. Objective - Constitutional Vitals: Temp Pulse Resp BP Pulse Ox 98.6 F 95 H 18 102/61 95 03/04/18 11:42 03/04/18 11:42 03/04/18 11:42 03/04/18 11:42 03/04/18 11:42 General appearance: no acute distress - EENT Eyes: PERRL, EOM intact ENT: hearing intact - Respiratory Respiratory: bilateral: CTA - Cardiovascular Rhythm: regular Heart Sounds: Present: S1 & S2 - Gastrointestinal General gastrointestinal: Present: soft, non-tender, non-distended, normal bowel sounds - Neurologic Neurological: alert and oriented x3 - Labs CBC & Chem 7: 03/04/18 09:32 03/03/18 02:19 Labs: Laboratory Results - last 24 hr 03/04/18 09:32 Hgb 7.6 L Hct 22.5 L <MAXINE PORTER - Last Filed: 03/04/18 12:57> Assessment and Plan Pt seen and examined. Agree with note above. No signs of further bleeding since admission. H/H stable from recent discharge. Objective - Constitutional Vitals: Temp Pulse Resp BP Pulse Ox 98.6 F 95 H 18 102/61 95 03/04/18 11:42 03/04/18 11:42 03/04/18 11:42 03/04/18 11:42 03/04/18 11:42 - Labs CBC & Chem 7: 03/04/18 09:32 03/03/18 02:19 Labs: Laboratory Results - last 24 hr 03/04/18 09:32 Hgb 7.6 L Hct 22.5 L
== END 2018-03-04 16:25 | disposition home or self-care (01) | DRG 381 ==
LOC: ED 01:36 → 4A 10:26
PROVIDERS: ADMIT Hospitalist; ATTEND Hospitalist
DX: K22.11 Ulcer of esophagus with bleeding (principal); K56.1 Intussusception; K21.9 Gastro-esophageal reflux disease without esophagitis; K26.4 Chronic or unspecified duodenal ulcer with hemorrhage; I10 Essential (primary) hypertension; Z79.899 Other long term (current) drug therapy; Z87.11 Personal history of peptic ulcer disease; Z88.0 Allergy status to penicillin
CPT/HCPCS: 36415; 74176; 74177; 80053; 82271; 83690; 85014; 85018; 85025; 85610; 85730; 86850; 86900; 86901; G0378; C9113; J2270; J2405; J2765; J7030; Q9967

== ENCOUNTER 2018-10-23 18:57 | Emergency (ER) | payer SELFPAY ==
--- NOTE | 2018-10-23 19:45 | Event Note ---
ED Screening Note Date of service: 10/23/18 Time: 19:43 ED Screening Note: This is a 52 y.o. F. that presents to the ER with abdominal pain, lightheadedness, and weakness x 2 days. This initial assessment/diagnostic orders/clinical plan/treatment(s) is/are subject to change based on patients health status, clinical progression and re- assessment by fellow clinical providers in the ED. Further treatment and workup at subsequent clinical providers discretion. Patient/guardian urged not to elope from the ED as their condition may be serious if not clinically assessed and managed. Initial orders include: Labs and CT of abdomen and pelvis
[2018-10-23 20:31] LABS: Basophils % (Auto) 0.3 % (0.0-1.8); Eosinophils # (Auto) 0.1 K/mm3 (0.0-0.4); Eosinophils % (Auto) 1.9 % (0.0-4.3); Hematocrit 46.5 % (30.3-42.9); Hemoglobin 15.3 gm/dl (10.1-14.3); Mean Corpuscular HGB Conc 33 % (30-34); Mean Corpuscular Volume 106 fl (79-97); Monocytes # (Auto) 0.4 K/mm3 (0.0-0.8); Monocytes % (Auto) 7.9 % (0.0-7.3); Platelet Count 248 K/mm3 (140-440); Red Blood Count 4.37 M/mm3 (3.65-5.03); Red Cell Distribution Width 15.7 % (13.2-15.2)
[2018-10-23 21:38] LABS: Alanine Aminotransferase 10 units/L (7-56); Albumin 4.7 g/dL (3.9-5); BUN/Creatinine Ratio 16; Blood Urea Nitrogen 11 mg/dL (7-17); Calcium 10.1 mg/dL (8.4-10.2); Hemolysis Index 19
[2018-10-23] MEDS ORDERED: ZOFRAN IV ONE (22:05)
[2018-10-23] MEDS ORDERED: PEPCID IV ONE (22:05)
[2018-10-23] MEDS ORDERED: NACL 0.9% 1000 ML 1,000 ML IV ONE ×2 (22:05→23:13)
[2018-10-23] MEDS ORDERED: MORPHINE IV ONE (22:44)
--- NOTE | 2018-10-23 23:38 | Cat Scan Report ---
CT abdomen pelvis w con INDICATION: diffuse abd pain. TECHNIQUE: All CT scans at this location are performed using the following dose modulation technique: Automated exposure control. Helical slices were obtained through the abdomen and pelvis following the administr ation of 100 cc of Omnipaque 300 COMPARISON: CT scan dated 03/03/2018 FINDINGS: Abdomen: The lung bases are clear. The liver, spleen, pancreas, adrenal glands, and small bowel are u nremarkable. There is no obstruction, inflammation, or free air. There is a small cyst in the mid right kidney which is unchanged. There is nephrolithiasis on the lef t which appears unchanged. Pelvis: The urinary bladder is distended. Phleboliths are noted in the pelvis. There is no adenopathy . On review of bone windows, no acute osseous abnormalities are seen. IMPRESSION: 1. There is significant distention of the urinary bladder. There is nephrolithiasis on the left. There are no ureteral calculi and there is no hydronephrosis. Not mentioned above, there is a small hiatal hernia. There is no obstruction, inflammation, or free air. Signer Name: Aldair Merino MD Signed: 10/23/2018 11:34 PM Workstation Name: [id number]
--- NOTE | 2018-10-24 00:23 | Emergency Department Report ---
ED Abdominal Pain HPI - General Chief Complaint: Abdominal Pain Stated Complaint: STOMACH PAIN/BACK PAIN Time Seen by Provider: 10/23/18 19:42 Source: patient, old records reviewed Mode of arrival: Ambulatory Limitations: No Limitations - History of Present Illness Initial Comments: 52-year-old female the past medical history of peptic ulcer disease, GERD, erosive esophagitis, hypertension, and anemia requiring blood transfusion secondary to bleeding ulcer presents to the hospital complaining of epigastric pain, nausea, vomiting, decreased by mouth intake 2 days. Patient last episode of vomiting was 2 days ago she saw some blood streaked vomitus. She has not vomited since but continues to have nausea and therefore has not had much to eat or drink the last 2 days. She complains of intermittent epigastric tightness that radiates to the back that is rated 9/10 in intensity. Symptoms worse or palpation. No evening factors. Today patient felt really lightheaded and therefore came to the ER for evaluation. She denies fever, melena, hem atochezia, or diarrhea. She did take [place] without improvement. He denies NSAID or aspirin use. Patient ran out of her Protonix for 1-2 days. Patient was admitted here in February for anemia requiring blood transfusion. Endoscopy showed duodenal ulcer and erosive esophagitis. Initial CT was suspicious for jejunum-jejunal intussusception which wasn't seen on repeat CT. Severity scale (0 -10): 8 - Related Data Previous Rx's Medication Instructions Recorded Last Taken Type Ferrous Sulfate [Feosol 325 MG tab] 325 mg PO BID #60 tablet 03/04/18 Unknown Rx HYDROcodone/APAP 5-325 [[place] 1 each PO Q6HR PRN #20 tablet 10/24/18 Unknown Rx 5/325] Ondansetron [Zofran Odt] 4 mg PO Q8HR #20 tab.rapdis 10/24/18 Unknown Rx Pantoprazole [Protonix] 40 mg PO QDAY #30 tablet 10/24/18 Unknown Rx Sucralfate [Carafate] 1 gm PO Q6HR #30 tablet 10/24/18 Unknown Rx Allergies Allergy/AdvReac Type Severity Reaction Status Date / Time Penicillins Allergy Swelling Verified 12/28/13 17:26 ED Review of Systems ROS: Stated complaint: STOMACH PAIN/BACK PAIN Other details as noted in HPI Comment: All other systems reviewed and negative ED Past Medical Hx - Past Medical History Previous Medical History?: Yes Hx Hypertension: Yes Hx Heart Attack/AMI: No Hx Congestive Heart Failure: No Hx Diabetes: No Hx GERD: Yes Hx Liver Disease: No Hx Renal Disease: No Hx Seizures: No Hx Asthma: No Hx COPD: No Additional medical history: anemia. Bleeding ulcer - Surgical History Past Surgical History?: Yes Additional Surgical History: Endoscopy for bleeding ulcer 5 years ago. endoscopy 03/01/2018 - Social History Smoking Status: Never Smoker Substance Use Type: None - Medications Home Medications: Home Medications Medication Instructions Recorded Confirmed Last Taken Type Ferrous Sulfate [Feosol 325 MG tab] 325 mg PO BID #60 tablet 03/04/18 Unknown Rx HYDROcodone/APAP 5-325 [[place] 1 each PO Q6HR PRN #20 tablet 10/24/18 Unknown Rx 5/325] Ondansetron [Zofran Odt] 4 mg PO Q8HR #20 tab.rapdis 10/24/18 Unknown Rx Pantoprazole [Protonix] 40 mg PO QDAY #30 tablet 10/24/18 Unknown Rx Sucralfate [Carafate] 1 gm PO Q6HR #30 tablet 10/24/18 Unknown Rx ED Physical Exam - General Limitations: No Limitations - Other Other exam information: Gen.: No acute distress Head: Atraumatic Eyes: Normal appearance, pink conjunctiva ENT: Moist mucous membranes Neck: Normal appearance, no posterior midline tenderness, no meningismus Chest: Clear to auscultation bilaterally Cardiovascular: Mild tachycardia regular rhythm Abdomen: Normal appearance, soft, epigastric tenderness, no rebound or guarding, normal bowel sounds Rectal: Guaiac negative brown stool without melena or gross blood Back: Normal appearance, nontender Extremity: Full range of motion, normal appearance Neuro: Alert, clear speech, no focal motor or sensory deficit Psychiatric: Appropriate Skin: No rash ED Course Vital Signs 10/23/18 10/23/18 10/23/18 19:46 22:00 23:00 Temperature 98.6 F 98.6 F Pulse Rate 119 H 95 H 92 H Respiratory 18 20 20 Rate Blood Pressure 127/92 Blood Pressure 142/89 160/85 [Right] O2 Sat by Pulse 98 97 99 Oximetry 10/23/18 10/23/18 10/23/18 23:02 23:12 23:32 Temperature Pulse Rate Respiratory 20 20 20 Rate Blood Pressure Blood Pressure [Right] O2 Sat by Pulse 98 Oximetry 10/24/18 10/24/18 10/24/18 00:00 00:48 01:00 Temperature Pulse Rate 93 H 90 Respiratory 20 20 20 Rate Blood Pressure Blood Pressure 158/91 156/92 [Right] O2 Sat by Pulse 98 98 Oximetry ED Medical Decision Making - Lab Data Result diagrams: 10/23/18 19:49 10/24/18 00:21 Lab Results 10/23/18 10/23/18 10/24/18 Range/Units 19:49 19:49 00:13 WBC 5.1 (4.5-11.0) K/mm3 RBC 4.37 (3.65-5.03) M/mm3 Hgb 15.3 H (10.1-14.3) gm/dl Hct 46.5 H (30.3-42.9) % MCV 106 H (79-97) fl MCH 35 H (28-32) pg MCHC 33 (30-34) % RDW 15.7 H (13.2-15.2) % Plt Count 248 (140-440) K/mm3 Lymph % (Auto) 19.0 (13.4-35.0) % [place] % (Auto) 7.9 H (0.0-7.3) % Eos % (Auto) 1.9 (0.0-4.3) % Baso % (Auto) 0.3 (0.0-1.8) % Lymph # 1.0 L (1.2-5.4) K/mm3 [place] # 0.4 (0.0-0.8) K/mm3 Eos # 0.1 (0.0-0.4) K/mm3 Baso # 0.0 (0.0-0.1) K/mm3 Seg Neutrophils % 70.9 H (40.0-70.0) % Seg Neutrophils # 3.6 (1.8-7.7) K/mm3 Sodium 136 L (137-145) mmol/L Potassium 5.7 H (3.6-5.0) mmol/L Chloride 95.7 L (98-107) mmol/L Carbon Dioxide 21 L (22-30) mmol/L Anion Gap 25 mmol/L BUN 11 (7-17) mg/dL Creatinine 0.7 (0.7-1.2) mg/dL Estimated GFR > 60 ml/min BUN/Creatinine Ratio 16 % Glucose 73 (65-100) mg/dL Calcium 10.1 (8.4-10.2) mg/dL Total Bilirubin 0.50 (0.1-1.2) mg/dL AST 23 (5-40) units/L ALT 10 (7-56) units/L Alkaline Phosphatase 97 (35-129) units/L Total Protein 8.4 H (6.3-8.2) g/dL Albumin 4.7 (3.9-5) g/dL Albumin/Globulin Ratio 1.3 % Lipase 32 (13-60) units/L Urine Color Yellow (Yellow) Urine Turbidity Clear (Clear) Urine pH 6.0 (5.0-7.0) Ur Specific [place] 1.027 (1.003-1.030) Urine Protein <15 mg/dl (Negative) mg/dL Urine Glucose (UA) Neg (Negative) mg/dL Urine Ketones 20 (Negative) mg/dL Urine Blood Neg (Negative) Urine Nitrite Neg (Negative) Urine Bilirubin Neg (Negative) Urine Urobilinogen < 2.0 (<2.0) mg/dL Ur Leukocyte Esterase Neg (Negative) Urine WBC (Auto) 2.0 (0.0-6.0) /HPF Urine RBC (Auto) 2.0 (0.0-6.0) /HPF U Epithel Cells (Auto) < 1.0 (0-13.0) /HPF 10/24/18 Range/Units 00:21 WBC (4.5-11.0) K/mm3 RBC (3.65-5.03) M/mm3 Hgb (10.1-14.3) gm/dl Hct (30.3-42.9) % MCV (79-97) fl MCH (28-32) pg MCHC (30-34) % RDW (13.2-15.2) % Plt Count (140-440) K/mm3 Lymph % (Auto) (13.4-35.0) % [place] % (Auto) (0.0-7.3) % Eos % (Auto) (0.0-4.3) % Baso % (Auto) (0.0-1.8) % Lymph # (1.2-5.4) K/mm3 [place] # (0.0-0.8) K/mm3 Eos # (0.0-0.4) K/mm3 Baso # (0.0-0.1) K/mm3 Seg Neutrophils % (40.0-70.0) % Seg Neutrophils # (1.8-7.7) K/mm3 Sodium (137-145) mmol/L Potassium 5.4 H (3.6-5.0) mmol/L Chloride (98-107) mmol/L Carbon Dioxide (22-30) mmol/L Anion Gap mmol/L BUN (7-17) mg/dL Creatinine (0.7-1.2) mg/dL Estimated GFR ml/min BUN/Creatinine Ratio % Glucose (65-100) mg/dL Calcium (8.4-10.2) mg/dL Total Bilirubin (0.1-1.2) mg/dL AST (5-40) units/L ALT (7-56) units/L Alkaline Phosphatase (35-129) units/L Total Protein (6.3-8.2) g/dL Albumin (3.9-5) g/dL Albumin/Globulin Ratio % Lipase (13-60) units/L Urine Color (Yellow) Urine Turbidity (Clear) Urine pH (5.0-7.0) Ur Specific [place] (1.003-1.030) Urine Protein (Negative) mg/dL Urine Glucose (UA) (Negative) mg/dL Urine Ketones (Negative) mg/dL Urine Blood (Negative) Urine Nitrite (Negative) Urine Bilirubin (Negative) Urine Urobilinogen (<2.0) mg/dL Ur Leukocyte Esterase (Negative) Urine WBC (Auto) (0.0-6.0) /HPF Urine RBC (Auto) (0.0-6.0) /HPF U Epithel Cells (Auto) (0-13.0) /HPF - EKG Data -: EKG Interpreted by [facility] EKG shows normal: sinus rhythm, ST-T waves (no stemi) Rate: normal - Radiology Data Radiology results: report reviewed CT abdomen pelvis w con INDICATION: diffuse abd pain. TECHNIQUE: All CT scans at this location are performed using the following dose modulation technique: Automated exposure control. Helical slices were obtained through the abdomen and pelvis following the administration of 100 cc of Omnipaque 300 COMPARISON: CT scan dated 03/03/2018 FINDINGS: Abdomen: The lung bases are clear. The liver, spleen, pancreas, adrenal glands, and small bowel are unremarkable. There is no obstruction, inflammation, or free air. There is a small cyst in the mid right kidney which is unchanged. There is nephrolithiasis on the left which appears unchanged. Pelvis: The urinary bladder is distended. Phleboliths are noted in the pelvis. There is no adenopathy. On review of bone windows, no acute osseous abnormalities are seen. IMPRESSION: 1. There is significant distention of the urinary bladder. There is nephrolithiasis on the left. There are no ureteral calculi and there is no hydronephrosis. Not mentioned above, there is a small hiatal hernia. There is no obstruction, inflammation, or free air. - Medical Decision Making Patient's symptoms and heart rate improved with ED treatment. Patient is not having signs of active bleeding given the lack of vomiting blood, normal H&H, and normal guaiac exam. Patient is actually hemoconcentrated likely secondary to dehydration and poor by mouth intake. Lightheadedness and dizziness also secondary to dehydration and poor by mouth intake. Patient tolerated by mouth in the ED after meds. Patient has an elevated potassium due to unknown cause. She does not take any potassium supplements, potassium sparing diuretic, or have signs of renal failure. Repeat after 1 L of fluid shows that the potassium was trending downward. Patient did receive a small dose of Lasix 10 mg with urine output. She is to get a total of 3 L of normal saline. Repeat potassium ordered for 3 AM in to be checked by Dr Carroll. IF potassium is within normal range and patient still has no signs of active bleeding then she may be di scharged home with medications provided. Dispo plan discussed with patient. - Differential Diagnosis peptic ulcer disease, esophagitis, gastritis, dehydration, infection Critical Care Time: No Critical care attestation.: If time is entered above; I have spent that time in minutes in the direct care of this critically ill patient, excluding procedure time. ED Disposition Clinical Impression: Epigastric pain, Gastritis, History of esophagitis, Hx of duodenal ulcer, Hyperkalemia Disposition: DC-01 TO HOME OR SELFCARE Is pt being admited?: No Does the pt Need Aspirin: No Condition: Stable Instructions: Peptic Ulcer (ED), Gastritis (ED), Metoprolol (By mouth), Hyperkalemia (ED) Additional Instructions: Take the medication as prescribed. Follow-up with your doctor or with the doctor/clinic provided. Return if symptoms worsen as indicated by your discharge instructions. Prescriptions: Sucralfate [Carafate] 1 gm PO Q6HR #30 tablet HYDROcodone/APAP 5-325 [[place] 5/325] 1 each PO Q6HR PRN #20 tablet PRN Reason: Pain Pantoprazole [Protonix] 40 mg PO QDAY #30 tablet Ondansetron [Zofran Odt] 4 mg PO Q8HR #20 tab.rapdis Referrals: PRIMARY CARE, [Primary Care Provider] - 3-5 Days CHERI MAC MD [Staff Physician] - 3-5 Days [facility] [Provider Group] - 3-5 Days
[2018-10-24 00:32] LABS: Bilirubin,Urine NEG (Negative); Blood,Urine NEG (Negative); Color,Urine Yellow (Yellow); Protein,Urine <15 mg/dL mg/dL (Negative); Urobilinogen,Urine < 2.0 mg/dL (<2.0)
[2018-10-24] MEDS ORDERED: DILAUDID IV ONE (00:36)
[2018-10-24] MEDS ORDERED: CARAFATE PO ONE (00:41)
[2018-10-24] MEDS ORDERED: DILAUDID ONE (00:43)
[2018-10-24] MEDS ORDERED: NACL 0.9% 1000 ML 1,000 ML IV ONE (01:06)
[2018-10-24] MEDS ORDERED: LASIX IV ONE (01:07)
[2018-10-24 03:09] VITALS: BP 150/93
== END 2018-10-24 04:14 | disposition home or self-care (01) ==
LOC: ED 18:57
DX: K29.00 Acute gastritis without bleeding (principal)
CPT/HCPCS: 36415; 74177; 80053; 81001; 82271; 83690; 84132; 85025; 93005; 93010; 96361; 96374; 96375; 99284; J1170; J1940; J2270; J7030; Q9967

== ENCOUNTER 2018-10-25 15:04 | Emergency (ER) | payer SELFPAY ==
--- NOTE | 2018-10-25 16:00 | Event Note ---
ED Screening Note ED Screening Note: generalized abd pain that began 2-3 days ago was evaluated in the ED yesterday, could not get medicine filled due to issue with prescription, NURA was will refill pts prescription will give GI referral will d/c from triage
[2018-10-25 16:02] VITALS: BP 109/85
--- NOTE | 2018-10-25 16:07 | Emergency Department Report ---
Chief Complaint: Abdominal Pain Stated Complaint: SEVERE STOMACH PAIN Time Seen by Provider: 10/25/18 16:00 - HPI History of Present Illness: pt is a 52 yo female who presents to the emergency room for her medications. she was evaluated in the ED yesterday, could not get medicine filled due to issue with prescription, NURA was of the prescribing physician per pt. pt denies any new symptoms. states she continues to have abd pain due to not being able to fill her prescriptions. she states she would like to get new prescriptions of the medications and return if the medications are not helping. - Exam Vital Signs: Vital Signs 10/25/18 16:00 Temperature 98.7 F Pulse Rate 118 H Respiratory 18 Rate Blood Pressure 109/85 O2 Sat by Pulse 97 Oximetry MSE screening note: Focused history and physical exam performed. Due to findings the following was ordered: ED Medical Decision Making - Medical Decision Making pt is a 52 yo female who presents to the emergency room for her medications. she was evaluated in the ED yesterday, could not get medicine filled due to issue with prescription, NURA was of the prescribing physician per pt. pt denies any new symptoms. she states she would like to get new prescriptions of the medications and return if the medications are not helping. I shredded pts old prescriptions from yesterday and printed new prescriptions. Dr. Hunter wrote for pt to have 12 tablets of pain medication. advised pt to take medications as prescribed. follow up with a GI doctor and primary care doctor in the next 2-3 days. return to the emergency room immediately for any new or worsening symptoms. ED Disposition for MSE Clinical Impression: Medication refill Disposition: MED SCREENING EXAM-LEFT Is pt being admited?: No Does the pt Need Aspirin: No Condition: Stable Instructions: Abdominal Pain (ED) Additional Instructions: please take medications as prescribed. follow up with a GI doctor and primary care doctor in the next 2-3 days. return to the emergency room for any new or worsening symptoms. Prescriptions: Sucralfate [Carafate] 1 gm PO Q6HR #30 tablet HYDROcodone/APAP 5-325 [[place] 5-325 mg TAB] 1 each PO Q6HR PRN #20 tablet PRN Reason: Pain Pantoprazole [Protonix TAB] 40 mg PO QDAY #30 tablet Ondansetron [Zofran ODT TAB] 4 mg PO Q8HR #20 tab.rapdis Referrals: [facility] [Provider Group] - 2-3 Days [facility] [Provider Group] - 2-3 Days [facility] [Outside] - 2-[address] [facility] [Outside] - 2-3 Days Time of Disposition: 16:08 Print Language: BULGARIAN
== END 2018-10-25 17:30 | disposition left against medical advice (07) ==
LOC: ED 15:04
DX: R10.9 Unspecified abdominal pain (principal); Z76.0 Encounter for issue of repeat prescription; Z88.0 Allergy status to penicillin
CPT/HCPCS: 99281

== ENCOUNTER 2018-10-26 03:40 | Emergency (ER) | payer SELFPAY ==
[2018-10-26 04:31] LABS: Basophils % (Auto) 0.3 % (0.0-1.8); Eosinophils # (Auto) 0.1 K/mm3 (0.0-0.4); Eosinophils % (Auto) 1.7 % (0.0-4.3); Hematocrit 39.3 % (30.3-42.9); Hemoglobin 13.3 gm/dl (10.1-14.3); Lymphocytes % (Auto) 22.5 % (13.4-35.0); Mean Corpuscular HGB Conc 34 % (30-34); Mean Corpuscular Volume 106 fl (79-97); Monocytes # (Auto) 0.4 K/mm3 (0.0-0.8); Monocytes % (Auto) 8.8 % (0.0-7.3); Platelet Count 300 K/mm3 (140-440); Red Cell Distribution Width 16.2 % (13.2-15.2)
[2018-10-26 04:50] LABS: Bilirubin,Urine NEG (Negative); Blood,Urine NEG (Negative); Color,Urine Yellow (Yellow); Mucus,Urine FEW /HPF; Urobilinogen,Urine < 2.0 mg/dL (<2.0)
[2018-10-26 04:55] LABS: BUN/Creatinine Ratio 20; Blood Urea Nitrogen 12 mg/dL (7-17); Calcium 9.7 mg/dL (8.4-10.2); Hemolysis Index 4
--- NOTE | 2018-10-26 06:24 | Emergency Department Report ---
ED Abdominal Pain HPI - General Chief Complaint: Abdominal Pain Stated Complaint: ABD PAIN,BACK PAIN BACK SPASMS Time Seen by Provider: 10/26/18 06:21 Source: patient Mode of arrival: Ambulatory Limitations: No Limitations - History of Present Illness Initial Comments: This is a 52-year-old female with her third visit to the emergency department in October for epigastric pain which she describes as a burning. She has a history of duodenal ulcer. She does not follow up with a GI doctor. She states that she has thrown up "milky fluid". She's had no melena. She states her by mouth intake has been poor. She denies fever or chills. She denies back pain to me. He states that she's been having intermittent symptoms for the last at least 2 weeks. She does not follow-up with any physician. She takes Protonix intermittently [id number]. She has not recently vomited. Patient's had a recent CT which showed no acute process. Patient is 52 years old female with history of hypertension and recent GI bleed. Patient received 1 unit of PRBC. Patient was just released from the hospital 2 days ago. Patient had a upper GI endoscopy by Dr. Araiza. Patient found to have a duodenal ulcer and erosive esophagitis. Patient stated that she did not have any bowel movement since she left the hospital but she's been having nausea and diffuse abdominal pain. The patient was evaluated through the emergency department and found to have incidental intestinal intussusception on CT scan. The patient was admitted with diagnosis of abdominal pain, GI bleed and intestinal intussusception. Patient saw GI and surgery consultation. GI performed EGD that showed duodenal ulcer with heme spot but no high risk bleeding lesions. GI recommended PPI BID, avoid NSAIDs. Surgery saw the patient in consultation and recommended a repeat CT scan of the abdomen and pelvis after the EGD. The previously seen jejunal-jejunal intussusception had resolved. The patient's diet was advanced which she tolerated. GI and surgery felt the patient could discharge home and follow-up as an outpatient. Dedicated discharge time 32 minutes. Disposition: - TO HOME OR SELFCARE Time spent for discharge: 32 - Discharge Diagnoses (1) GI bleed Status: Acute (2) Intussusception intestine Status: Acute (3) Duodenal ulcer Status: Acute (4) Erosive esophagitis Status: Acute MD Complaint: abdominal pain -: week(s) Location: epigastric Radiation: none Migration to: no migration Severity: moderate Quality: aching Consistency: intermittent Improves With: nothing Worsens With: nothing Associated Symptoms: nausea, vomiting. denies: diarrhea, fever - Related Data Previous Rx's Medication Instructions Recorded Last Taken Type Ferrous Sulfate [Feosol 325 MG tab] 325 mg PO BID #60 tablet 03/04/18 Unknown Rx HYDROcodone/APAP 5-325 [[place] 1 each PO Q6HR PRN #20 tablet 10/25/18 Unknown Rx 5-325 mg TAB] HYDROcodone/APAP 5-325 [[place] 1 each PO Q6HR PRN #12 tablet 10/25/18 Unknown Rx 5/325] Pantoprazole [Protonix TAB] 40 mg PO QDAY #30 tablet 10/25/18 Unknown Rx Lansoprazole [Prevacid] 30 mg PO BID #60 capsule. 10/26/18 Unknown Rx Ondansetron [Zofran ODT TAB] 4 mg PO Q8HR #20 tab.rapdis 10/26/18 Unknown Rx Sucralfate [Carafate] 1 gm PO Q6HR #30 tablet 10/26/18 Unknown Rx traMADol [Ultram] 50 mg PO Q6HR PRN #14 tablet 10/26/18 Unknown Rx Allergies Allergy/AdvReac Type Severity Reaction Status Date / Time Penicillins Allergy Swelling Verified 12/28/13 17:26 ED Review of Systems ROS: Stated complaint: ABD PAIN,BACK PAIN BACK SPASMS Other details as noted in HPI Constitutional: denies: chills, fever Eyes: denies: eye pain, eye discharge, vision change ENT: denies: ear pain, throat pain Respiratory: denies: cough, shortness of breath, wheezing Cardiovascular: denies: chest pain, palpitations Endocrine: no symptoms reported Gastrointestinal: as per HPI, abdominal pain, nausea. denies: diarrhea Genitourinary: denies: urgency, dysuria, discharge Musculoskeletal: denies: back pain, joint swelling, arthralgia Skin: denies: rash, lesions Neurological: denies: headache, weakness, paresthesias Psychiatric: denies: anxiety, depression Hematological/Lymphatic: denies: easy bleeding, easy bruising ED Past Medical Hx - Past Medical History Hx Hypertension: Yes Hx Heart Attack/AMI: No Hx Congestive Heart Failure: No Hx Diabetes: No Hx GERD: Yes Hx Liver Disease: No Hx Renal Disease: No Hx Seizures: No Hx Asthma: No Hx COPD: No Additional medical history: anemia. Bleeding ulcer - Surgical History Additional Surgical History: Endoscopy for bleeding ulcer 5 years ago. endoscopy 03/01/2018 - Social History Smoking Status: Never Smoker - Medications Home Medications: Home Medications Medication Instructions Recorded Confirmed Last Taken Type Ferrous Sulfate [Feosol 325 MG tab] 325 mg PO BID #60 tablet 03/04/18 Unknown Rx HYDROcodone/APAP 5-325 [[place] 1 each PO Q6HR PRN #20 tablet 10/25/18 Unknown Rx 5-325 mg TAB] HYDROcodone/APAP 5-325 [[place] 1 each PO Q6HR PRN #12 tablet 10/25/18 Unknown Rx 5/325] Pantoprazole [Protonix TAB] 40 mg PO QDAY #30 tablet 10/25/18 Unknown Rx Lansoprazole [Prevacid] 30 mg PO BID #60 capsule. 10/26/18 Unknown Rx Ondansetron [Zofran ODT TAB] 4 mg PO Q8HR #20 tab.rapdis 10/26/18 Unknown Rx Sucralfate [Carafate] 1 gm PO Q6HR #30 tablet 10/26/18 Unknown Rx traMADol [Ultram] 50 mg PO Q6HR PRN #14 tablet 10/26/18 Unknown Rx ED Physical Exam - General Limitations: No Limitations General appearance: alert, in no apparent distress, other (appeared a bit dry) - Head Head exam: Present: atraumatic, normocephalic - Eye Eye exam: Present: normal appearance. Absent: scleral icterus - ENT ENT exam: Present: mucous membranes moist - Neck Neck exam: Present: normal inspection. Absent: tenderness, meningismus - Respiratory Respiratory exam: Present: normal lung sounds bilaterally. Absent: respiratory distress - Cardiovascular Cardiovascular Exam: Present: regular rate, normal rhythm. Absent: systolic murmur, diastolic murmur, rubs, gallop - GI/Abdominal GI/Abdominal exam: Present: soft, normal bowel sounds. Absent: distended, tenderness, guarding, rebound, rigid, organomegaly, mass, bruit, pulsatile mass, hernia - Extremities Exam Extremities exam: Present: normal inspection - Back Exam Back exam: Present: normal inspection - Neurological Exam Neurological exam: Present: alert, oriented X3, CN II-XII intact. Absent: motor sensory deficit - Psychiatric Psychiatric exam: Present: normal affect, normal mood - Skin Skin exam: Present: warm, dry, intact, normal color. Absent: rash ED Course Vital Signs 10/26/18 10/26/18 10/26/18 03:54 04:42 05:00 Temperature 97.0 F L 97.7 F Pulse Rate 103 H 91 H Respiratory 18 19 Rate Blood Pressure 137/86 142/88 Blood Pressure 144/89 [Left] O2 Sat by Pulse 100 99 96 Oximetry 10/26/18 10/26/18 10/26/18 05:30 06:00 06:30 Temperature Pulse Rate Respiratory Rate Blood Pressure 148/83 144/89 136/84 Blood Pressure [Left] O2 Sat by Pulse 98 97 99 Oximetry 10/26/18 07:37 Temperature Pulse Rate Respiratory 19 Rate Blood Pressure Blood Pressure [Left] O2 Sat by Pulse 99 Oximetry - Reevaluation(s) Reevaluation #1: She given IV fluids. Her hydration status has improved. She is resting comfortable. Repeat examination of her abdomen was completely benign. She is appropriate for outpatient management. [facility] will be [facility] 10/26/18 08:40 ED Medical Decision Making - Lab Data Result diagrams: 10/26/18 04:11 10/26/18 04:11 Laboratory Results - last 24 hr 10/26/18 10/26/18 10/26/18 04:11 04:11 04:11 WBC 4.3 L RBC 3.70 Hgb 13.3 Hct 39.3 D MCV 106 H MCH 36 H MCHC 34 RDW 16.2 H Plt Count 300 Lymph % (Auto) 22.5 [place] % (Auto) 8.8 H Eos % (Auto) 1.7 Baso % (Auto) 0.3 Lymph # 1.0 L [place] # 0.4 Eos # 0.1 Baso # 0.0 Seg Neutrophils % 66.7 Seg Neutrophils # 2.9 Sodium 137 Potassium 4.0 Chloride 95.4 L Carbon Dioxide 21 L Anion Gap 25 BUN 12 Creatinine 0.6 L Estimated GFR > 60 BUN/Creatinine Ratio 20 Glucose 87 Calcium 9.7 Lipase 18 Urine Color Urine Turbidity Urine pH Ur Specific [place] Urine Protein Urine Glucose (UA) Urine Ketones Urine Blood Urine Nitrite Urine Bilirubin Urine Urobilinogen Ur Leukocyte Esterase Urine WBC (Auto) Urine RBC (Auto) U Epithel Cells (Auto) Urine Mucus 10/26/18 Unknown WBC RBC Hgb Hct MCV MCH MCHC RDW Plt Count Lymph % (Auto) [place] % (Auto) Eos % (Auto) Baso % (Auto) Lymph # [place] # Eos # Baso # Seg Neutrophils % Seg Neutrophils # Sodium Potassium Chloride Carbon Dioxide Anion Gap BUN Creatinine Estimated GFR BUN/Creatinine Ratio Glucose Calcium Lipase Urine Color Yellow Urine Turbidity Clear Urine pH 5.0 Ur Specific [place] 1.044 H Urine Protein 30 mg/dl Urine Glucose (UA) Neg Urine Ketones 80 Urine Blood Neg Urine Nitrite Neg Urine Bilirubin Neg Urine Urobilinogen < 2.0 Ur Leukocyte Esterase Neg Urine WBC (Auto) 1.0 Urine RBC (Auto) 3.0 U Epithel Cells (Auto) < 1.0 Urine Mucus Few Critical care attestation.: If time is entered above; I have spent that time in minutes in the direct care of this critically ill patient, excluding procedure time. ED Disposition Clinical Impression: Abdominal pain Qualifiers: Abdominal location: epigastric Qualified Code(s): R10.13 - Epigastric pain Disposition: DC- TO HOME OR SELFCARE Is pt being admited?: No Does the pt Need Aspirin: No Condition: Stable Instructions: Abdominal Pain (ED) Additional Instructions: Avoid stomach irritations to include aspirin and Motrin and and such [id number] medicines as well as alcohol. Rx as directed. Follow-up with GI or a local medical clinic. Return to the emergency department any acute change or problem. Prescriptions: Sucralfate [Carafate] 1 gm PO Q6HR #30 tablet Lansoprazole [Prevacid] 30 mg PO BID #60 capsule. traMADol [Ultram] 50 mg PO Q6HR PRN #14 tablet PRN Reason: Pain Ondansetron [Zofran ODT TAB] 4 mg PO Q8HR #20 tab.rapdis Referrals: PRIMARY CARE, [Primary Care Provider] - 3-5 Days Time of Disposition: 08:41
[2018-10-26] MEDS ORDERED: NACL 0.9% 1000 ML 1,000 ML IV ONE (06:25)
[2018-10-26] MEDS ORDERED: PROTONIX IV ONE (06:25)
[2018-10-26] MEDS ORDERED: ZOFRAN IV ONE (06:33)
[2018-10-26] MEDS ORDERED: MORPHINE IV ONE (06:33)
[2018-10-26 09:01] VITALS: BP 137/89
== END 2018-10-26 09:01 | disposition home or self-care (01) ==
LOC: ED 03:40
DX: R10.13 Epigastric pain (principal); I10 Essential (primary) hypertension; K21.9 Gastro-esophageal reflux disease without esophagitis; Z79.899 Other long term (current) drug therapy; Z88.0 Allergy status to penicillin
CPT/HCPCS: 36415; 80048; 81001; 83690; 85025; 96361; 96374; 96375; 99283; C9113; J2270; J2405; J7030

== ENCOUNTER 2018-11-29 12:23 | Emergency (ER) | payer SELFPAY ==
--- NOTE | 2018-11-29 12:37 | Emergency Department Report ---
Blank Doc - Documentation Documentation: 53-year-old female that presents with abdominal pain and n/v. Pain is in the epigastric area. Tachy in triage at 122. This initial assessment/diagnostic orders/clinical plan/treatment(s) is/are subject to change based on patient's health status, clinical progression and re-assessment by fellow clinical providers in the ED. Further treatment and workup at subsequent clinical providers discretion. Patient/guardians urged not to elope from the ED as their condition may be serious if not clinically assessed and managed. Initial orders include: 1- Patient sent to [facility] for further evaluation and treatment 2- EKG 3- labs 4- UA
[2018-11-29] MEDS ORDERED: ZOFRAN IV ONE (13:08)
[2018-11-29] MEDS ORDERED: NACL 0.9% 1000 ML 1,000 ML IV ONE ×2 (13:08→14:05)
[2018-11-29 13:24] LABS: Bilirubin,Urine NEG (Negative); Blood,Urine NEG (Negative); Color,Urine Yellow (Yellow); Mucus,Urine FEW /HPF; Urobilinogen,Urine < 2.0 mg/dL (<2.0)
[2018-11-29 13:43] LABS: Basophils % (Auto) 0.8 % (0.0-1.8); Eosinophils # (Auto) 0.1 K/mm3 (0.0-0.4); Hemoglobin 11.3 gm/dl (10.1-14.3); Lymphocytes # (Auto) 1.1 K/mm3 (1.2-5.4); Lymphocytes % (Auto) 20.7 % (13.4-35.0); Mean Corpuscular HGB Conc 33 % (30-34); Mean Corpuscular Volume 101 fl (79-97); Monocytes # (Auto) 0.4 K/mm3 (0.0-0.8); Monocytes % (Auto) 8.7 % (0.0-7.3); Platelet Count 344 K/mm3 (140-440); Red Blood Count 3.35 M/mm3 (3.65-5.03); Red Cell Distribution Width 14.5 % (13.2-15.2)
[2018-11-29] MEDS ORDERED: LEVAQUIN 750MG/150ML 750 MG/150 ML BAG IV ONE (13:57)
[2018-11-29 13:58] LABS: Alanine Aminotransferase 18 units/L (7-56); Albumin 4.7 g/dL (3.9-5); BUN/Creatinine Ratio 20; Blood Urea Nitrogen 12 mg/dL (7-17); Calcium 9.3 mg/dL (8.4-10.2); Hemolysis Index 2
[2018-11-29] MEDS ORDERED: PEPCID IV ONE (14:05)
[2018-11-29] MEDS ORDERED: MORPHINE IV ONE (14:05)
--- NOTE | 2018-11-29 15:10 | Emergency Department Report ---
ED Abdominal Pain HPI - General Chief Complaint: Abdominal Pain Stated Complaint: STOMACH PAIN/BACK PAIN Time Seen by Provider: 11/29/18 12:35 Source: patient Mode of arrival: Ambulatory Limitations: No Limitations - History of Present Illness Initial Comments: 53-year-old female with past medical history of physical disease, hiatal hernia, hypertension, and GERD is possible complaints of epigastric pain radiating to the back with nausea no vomiting reported but decreased appetite. She complains of seeing a dark stool today. Denies diarrhea, fever, or dysuria. Mild frequency reported today. Patient has been here several times this year for sim ilar symptoms and received some inpatient GI workup. She has not followed up as outpatient as instructed. She has been out of her PPI for 1 week in her Carafate for at least 3 days. No previous abdominal surgeries reported. Severity scale (0 -10): 7 - Related Data Previous Rx's Medication Instructions Recorded Last Taken Type Ferrous Sulfate [Feosol 325 MG tab] 325 mg PO BID #60 tablet 03/04/18 Unknown Rx HYDROcodone/APAP 5-325 [[place] 1 each PO Q6HR PRN #12 tablet 10/25/18 Unknown Rx 5/325] Lansoprazole [Prevacid] 30 mg PO BID #60 capsule. 10/26/18 Unknown Rx traMADol [Ultram] 50 mg PO Q6HR PRN #14 tablet 10/26/18 Unknown Rx HYDROcodone/APAP 5-325 [[place] 1 each PO Q6HR PRN #15 tablet 11/29/18 Unknown Rx 5-325 mg TAB] Nitrofurantoin [place]/M-[place]ryst 100 mg PO Q12HR #14 capsule 11/29/18 Unknown Rx [Macrobid CAP] Ondansetron [Zofran ODT TAB] 4 mg PO Q8HR #20 tab.rapdis 11/29/18 Unknown Rx Pantoprazole [Protonix TAB] 40 mg PO QDAY #30 tablet 11/29/18 Unknown Rx Sucralfate [Carafate] 1 gm PO Q6HR #30 tablet 11/29/18 Unknown Rx Allergies Allergy/AdvReac Type Severity Reaction Status Date / Time Penicillins Allergy Swelling Verified 12/28/13 17:26 ED Review of Systems ROS: Stated complaint: STOMACH PAIN/BACK PAIN Other details as noted in HPI Comment: All other systems reviewed and negative ED Past Medical Hx - Past Medical History Previous Medical History?: Yes Hx Hypertension: Yes Hx Heart Attack/AMI: No Hx Congestive Heart Failure: No Hx Diabetes: No Hx GERD: Yes Hx Liver Disease: No Hx Renal Disease: No Hx Seizures: No Hx Asthma: No Hx COPD: No Additional medical history: anemia. Bleeding ulcer - Surgical History Past Surgical History?: Yes Additional Surgical History: Endoscopy for bleeding ulcer 5 years ago. endoscopy 03/01/2018 - Social History Smoking Status: Never Smoker Substance Use Type: None - Medications Home Medications: Home Medications Medication Instructions Recorded Confirmed Last Taken Type Ferrous Sulfate [Feosol 325 MG tab] 325 mg PO BID #60 tablet 03/04/18 Unknown Rx HYDROcodone/APAP 5-325 [[place] 1 each PO Q6HR PRN #12 tablet 10/25/18 Unknown Rx 5/325] Lansoprazole [Prevacid] 30 mg PO BID #60 capsule. 10/26/18 Unknown Rx traMADol [Ultram] 50 mg PO Q6HR PRN #14 tablet 10/26/18 Unknown Rx HYDROcodone/APAP 5-325 [[place] 1 each PO Q6HR PRN #15 tablet 11/29/18 Unknown Rx 5-325 mg TAB] Nitrofurantoin [place]/M-Cryst 100 mg PO Q12HR #14 capsule 11/29/18 Unknown Rx [Macrobid CAP] Ondansetron [Zofran ODT TAB] 4 mg PO Q8HR #20 tab.rapdis 11/29/18 Unknown Rx Pantoprazole [Protonix TAB] 40 mg PO QDAY #30 tablet 11/29/18 Unknown Rx Sucralfate [Carafate] 1 gm PO Q6HR #30 tablet 11/29/18 Unknown Rx ED Physical Exam - General Limitations: No Limitations - Other Other exam information: Gen.: No acute distress Head: Atraumatic Eyes: Normal appearance ENT: Dry mucous membranes Neck: Normal appearance, no posterior midline tenderness, no meningismus Chest: Clear to auscultation bilaterally Cardiovascular: Tachycardic regular rhythm Abdomen: Normal appearance, soft, epigastric tenderness, no rebound or guarding, normal bowel sounds rectal: dark brown stool guaic neg Back: Normal appearance, nontender Extremity: Full range of motion, normal appearance Neuro: Alert o x 3, clear speech, no focal motor or sensory deficit Psychiatric: Appropriate Skin: No rash ED Course Vital Signs 11/29/18 12:30 Temperature 98.6 F Pulse Rate 124 H Respiratory 16 Rate Blood Pressure 142/91 O2 Sat by Pulse 99 Oximetry ED Medical Decision Making - Lab Data Result diagrams: 11/29/18 13:31 11/29/18 13:31 Lab Results 11/29/18 11/29/18 11/29/18 Range/Units 13:06 13:31 13:31 WBC 5.1 (4.5-11.0) K/mm3 RBC 3.35 L (3.65-5.03) M/mm3 Hgb 11.3 (10.1-14.3) gm/dl Hct 34.0 (30.3-42.9) % MCV 101 H (79-97) fl MCH 34 H (28-32) pg MCHC 33 (30-34) % RDW 14.5 (13.2-15.2) % Plt Count 344 (140-440) K/mm3 Lymph % (Auto) 20.7 (13.4-35.0) % [place] % (Auto) 8.7 H (0.0-7.3) % Eos % (Auto) 2.0 (0.0-4.3) % Baso % (Auto) 0.8 (0.0-1.8) % Lymph # 1.1 L (1.2-5.4) K/mm3 [place] # 0.4 (0.0-0.8) K/mm3 Eos # 0.1 (0.0-0.4) K/mm3 Baso # 0.0 (0.0-0.1) K/mm3 Seg Neutrophils % 67.8 (40.0-70.0) % Seg Neutrophils # 3.5 (1.8-7.7) K/mm3 Sodium 140 (137-145) mmol/L Potassium 4.0 (3.6-5.0) mmol/L Chloride 104.0 (98-107) mmol/L Carbon Dioxide 19 L (22-30) mmol/L Anion Gap 21 mmol/L BUN 12 (7-17) mg/dL Creatinine 0.6 L (0.7-1.2) mg/dL Estimated GFR > 60 ml/min BUN/Creatinine Ratio 20 % Glucose 90 (65-100) mg/dL Calcium 9.3 (8.4-10.2) mg/dL Total Bilirubin 0.60 (0.1-1.2) mg/dL AST 30 (5-40) units/L ALT 18 (7-56) units/L Alkaline Phosphatase 105 (35-129) units/L Total Protein 8.4 H (6.3-8.2) g/dL Albumin 4.7 (3.9-5) g/dL Albumin/Globulin Ratio 1.3 % Lipase 26 (13-60) units/L Urine Color Yellow (Yellow) Urine Turbidity Clear (Clear) Urine pH 5.0 (5.0-7.0) Ur Specific [place] 1.039 H (1.003-1.030) Urine Protein 30 mg/dl (Negative) mg/dL Urine Glucose (UA) Neg (Negative) mg/dL Urine Ketones Tr (Negative) mg/dL Urine Blood Neg (Negative) Urine Nitrite Neg (Negative) Urine Bilirubin Neg (Negative) Urine Urobilinogen < 2.0 (<2.0) mg/dL Ur Leukocyte Esterase Mod (Negative) Urine WBC (Auto) 22.0 H (0.0-6.0) /HPF Urine RBC (Auto) 1.0 (0.0-6.0) /HPF U Epithel Cells (Auto) < 1.0 (0-13.0) /HPF Urine Mucus Few /HPF - Medical Decision Making Patient received 2 L of normal saline, Zofran, morphine, IV Pepcid, and IV Levaquin for dehydration, gastritis, GERD, UTI. maalox and lidocaine po given for residual gerd Symptoms improved prior to discharge and tolerating by mouth Vital signs improved and with improvement in tachycardia We'll discharge home on antibiotics and GI meds. repeat hr improved - Differential Diagnosis GERD, gastroenteritis, chronic pain, UTI, pancreatitis, biliary colic Critical Care Time: No Critical care attestation.: If time is entered above; I have spent that time in minutes in the direct care of this critically ill patient, excluding procedure time. ED Disposition Clinical Impression: GERD (gastroesophageal reflux disease), Epigastric pain, Nausea, Dehydration, UTI (urinary tract infection) Disposition: TO HOME OR SELFCARE Is pt being admited?: No Does the pt Need Aspirin: No Condition: Stable Instructions: Gastroesophageal Reflux Disease (ED), Urinary Tract Infection in Women (ED) Additional Instructions: Take the medication as prescribed. Follow-up with your doctor or with the doctor/clinic provided. Return if symptoms worsen as indicated by your discharge instructions. Prescriptions: Sucralfate [Carafate] 1 gm PO Q6HR #30 tablet Nitrofurantoin [place]/M-Cryst [Macrobid CAP] 100 mg PO Q12HR #14 capsule HYDROcodone/APAP 5-325 [[place] 5-325 mg TAB] 1 each PO Q6HR PRN #15 tablet PRN Reason: Pain Pantoprazole [Protonix TAB] 40 mg PO QDAY #30 tablet Ondansetron [Zofran ODT TAB] 4 mg PO Q8HR #20 tab.rapdis Referrals: PRIMARY CAREMD [Primary Care Provider] - 3-5 Days [facility] [Provider Group] - 3-5 Days SONIA MENSAH MD [Staff Physician] - 3-5 Days Time of Disposition: 16:35
[2018-11-29] MEDS ORDERED: LIDOCAINE VISCOUS 2% PO ONE (16:32)
[2018-11-29] MEDS ORDERED: ALUM-MAG HYDROX-SIMETH 200-200-20MG/5ML PO ONE (16:32)
[2018-11-29 16:37] VITALS: BP 160/94
== END 2018-11-29 16:52 | disposition home or self-care (01) ==
LOC: ED 12:23
DX: K21.9 Gastro-esophageal reflux disease without esophagitis (principal); R11.2 Nausea with vomiting, unspecified; E86.0 Dehydration; N39.0 Urinary tract infection, site not specified; I10 Essential (primary) hypertension; D64.9 Anemia, unspecified; Z79.899 Other long term (current) drug therapy; Z88.0 Allergy status to penicillin
CPT/HCPCS: 36415; 80053; 81001; 82271; 83690; 85025; 87086; 96361; 96365; 96375; 99284; J1956; J2270; J2405; J7030

== ENCOUNTER 2018-12-06 12:12 | Emergency (ER) | payer SELFPAY ==
--- NOTE | 2018-12-06 12:47 | Emergency Department Report ---
Blank Doc - Documentation Documentation: 53-year-old female that presents with abdominal pain with n/v. This initial assessment/diagnostic orders/clinical plan/treatment(s) is/are subject to change based on patient's health status, clinical progression and re- assessment by fellow clinical providers in the ED. Further treatment and workup at subsequent clinical providers discretion. Patient/guardians urged not to elope from the ED as their condition may be serious if not clinically assessed and managed. Initial orders include: 1- Patient sent to [facility] for further evaluation and treatment 2- labs 3- UA
[2018-12-06 14:49] LABS: Bilirubin,Urine NEG (Negative); Blood,Urine NEG (Negative); Color,Urine Straw (Yellow); Protein,Urine <15 mg/dL mg/dL (Negative); Urobilinogen,Urine < 2.0 mg/dL (<2.0)
[2018-12-06 15:20] LABS: Basophils % (Auto) 0.6 % (0.0-1.8); Eosinophils # (Auto) 0.2 K/mm3 (0.0-0.4); Eosinophils % (Auto) 5.2 % (0.0-4.3); Hematocrit 33.7 % (30.3-42.9); Lymphocytes # (Auto) 1.5 K/mm3 (1.2-5.4); Lymphocytes % (Auto) 31.6 % (13.4-35.0); Mean Corpuscular HGB Conc 33 % (30-34); Mean Corpuscular Volume 103 fl (79-97); Monocytes # (Auto) 0.4 K/mm3 (0.0-0.8); Monocytes % (Auto) 8.3 % (0.0-7.3); Platelet Count 296 K/mm3 (140-440); Red Blood Count 3.29 M/mm3 (3.65-5.03); Red Cell Distribution Width 14.5 % (13.2-15.2)
[2018-12-06] MEDS ORDERED: SUCRALFATE 1 GM/10 ML ORAL LIQD PO ONE (15:20)
[2018-12-06] MEDS ORDERED: ONDANSETRON 4 MG/2 ML INJ IV ONE (15:20)
[2018-12-06] MEDS ORDERED: MORPHINE 4 MG/1 ML INJ IV ONE (15:20)
[2018-12-06] MEDS ORDERED: FAMOTIDINE 20 MG/2 ML INJ IV ONE (15:20)
--- NOTE | 2018-12-06 15:36 | Emergency Department Report ---
HPI - General Chief Complaint: Abdominal Pain Time Seen by Provider: 12/06/18 12:47 - HPI HPI: 53-year-old female presents to the emergency department with a complaint of some upper abdominal pain with radiation towards the back, nausea, decreased appetite. She has a history of GERD, hypertension, erosive esophagitis, hiatal hernia. The patient has been seen in this emergency department multiple times recently for similar complaints. She has been given multiple referrals for outpatient GI follow up but has not done so. She is a tobacco smoker. Denies any illicit drug use. She does not have a primary care physician. No recent travel or sick contacts at home. ED Past Medical Hx - Past Medical History Previous Medical History?: Yes Hx Hypertension: Yes Hx Heart Attack/AMI: No Hx Congestive Heart Failure: No Hx Diabetes: No Hx GERD: Yes Hx Liver Disease: No Hx Renal Disease: No Hx Seizures: No Hx Asthma: No Hx COPD: No Additional medical history: anemia. Bleeding ulcer - Surgical History Past Surgical History?: Yes Additional Surgical History: Endoscopy for bleeding ulcer 5 years ago. endoscopy 03/01/2018 - Social History Smoking Status: Never Smoker Substance Use Type: None - Medications Home Medications: Home Medications Medication Instructions Recorded Confirmed Last Taken Type Ferrous Sulfate [Feosol 325 MG tab] 325 mg PO BID #60 tablet 03/04/18 Unknown Rx HYDROcodone/APAP 5-325 [[place] 1 each PO Q6HR PRN #12 tablet 10/25/18 Unknown Rx 5/325] Lansoprazole [Prevacid] 30 mg PO BID #60 capsule. 10/26/18 Unknown Rx traMADol [Ultram] 50 mg PO Q6HR PRN #14 tablet 10/26/18 Unknown Rx HYDROcodone/APAP 5-325 [[place] 1 each PO Q6HR PRN #15 tablet 11/29/18 Unknown Rx 5-325 mg TAB] Nitrofurantoin [place]/M-Cryst 100 mg PO Q12HR #14 capsule 11/29/18 Unknown Rx [Macrobid CAP] Ondansetron [Zofran ODT TAB] 4 mg PO Q8HR #20 tab.rapdis 11/29/18 Unknown Rx Pantoprazole [Protonix TAB] 40 mg PO QDAY #30 tablet 11/29/18 Unknown Rx Sucralfate [Carafate] 1 gm PO Q6HR #30 tablet 11/29/18 Unknown Rx ED Review of Systems ROS: Stated complaint: UPPER STOMACH/BACK PAIN Other details as noted in HPI Comment: All other systems reviewed and negative Constitutional: denies: chills, fever Eyes: denies: eye pain, vision change ENT: denies: ear pain, throat pain Respiratory: denies: cough, shortness of breath Cardiovascular: denies: chest pain, palpitations Gastrointestinal: abdominal pain, nausea Genitourinary: denies: dysuria, discharge Musculoskeletal: back pain. denies: arthralgia Skin: denies: rash, lesions Neurological: denies: headache, weakness Physical Exam - Physical Exam Vital Signs: Vital Signs 12/06/18 12:45 Temperature 98.5 F Pulse Rate 113 H Respiratory 20 Rate Blood Pressure 148/91 O2 Sat by Pulse 99 Oximetry Physical Exam: GENERAL: The patient is well-developed well-nourished. HENT: Normocephalic. Atraumatic. Patient has moist mucous membranes. EYES: Extraocular motions are intact. NECK: Supple. Trachea is midline. CHEST/LUNGS: Clear to auscultation. There is no respiratory distress noted. HEART/CARDIOVASCULAR: Regular. There is no tachycardia. There is no murmur. ABDOMEN: Abdomen is soft, very mild epigastric tenderness to palpation. No guarding. Patient has normal bowel sounds. There is no abdominal distention. SKIN: Skin is warm and dry. NEURO: The patient is awake, alert, and oriented. The patient is cooperative. The patient has no focal neurologic deficits. Normal speech. MUSCULOSKELETAL: There is no tenderness or deformity. There is no evidence of acute injury. ED Course Vital Signs 12/06/18 12:45 Temperature 98.5 F Pulse Rate 113 H Respiratory 20 Rate Blood Pressure 148/91 O2 Sat by Pulse 99 Oximetry ED Medical Decision Making - Lab Data Result diagrams: 12/06/18 14:50 12/06/18 14:50 - Radiology Data Radiology results: image reviewed interpreted by me: Chest x-ray does not show any acute process. There are no pleural effusions, obvious pneumonia and there is no pneumothorax. Abdominal x-ray shows nonspecific nonobstructive bowel gas - Medical Decision Making This patient presents to the emergency department with some upper abdominal pain with radiation towards her back, nausea. She has been seen here multiple times for the same symptoms including one week ago. The patient has been noncompliant with her treatment or follow-up. She has been given multiple refe rrals and discharge instructions stating the importance/need of GI follow-up but she has yet to make an appointment with GI. The patient admits that she did not fill the antibiotic for urinary tract infection, she did not fill the PPI or her Carafate, but she did fill the Needles. She is currently asking for more pain medication. I explained to her that it is not the appropriate treatment for her history of GERD, erosive esophagitis, hiatal hernia and bleeding ulcers. I explained that it is imperative that she follows up with gastroenterology. She says that she still has the prescriptions for the other medications which I feel are still appropriate treatment. She did get some relief from the medications given here in the emergency department. Chest x-ray and abdominal imaging is unremarkable other than some moderate stool volume. The patient has been discharged home with a referral, again, for [facility], but has been instructed to return to the emergency Department with any worsening of her symptoms or any acute distress. - Differential Diagnosis GERD, pancreatitis, gastritis, esophagitis Critical Care Time: No Critical care attestation.: If time is entered above; I have spent that time in minutes in the direct care of this critically ill patient, excluding procedure time. ED Disposition Clinical Impression: Epigastric pain, Nausea GERD (gastroesophageal reflux disease) Qualifiers: Esophagitis presence: esophagitis presence not specified Qualified Code(s): K 21.9 - Gastro-esophageal reflux disease without esophagitis Disposition: DC-01 TO HOME OR SELFCARE Is pt being admited?: No Condition: Stable Instructions: Diet for Ulcers and Gastritis (ED), Gastroesophageal Reflux Disease (ED), Abdominal Pain (ED) Additional Instructions: Please follow-up with a operator catalyst concentration in the next few days, or as soon as possible. Return to the emergency Department with any worsening of your symptoms or any acute distress. Please fill your previous prescriptions for the Carafate, Protonix and Zofran. Referrals: [facility] [Provider Group] - 2-3 Days Forms: Accompanied Note, Work/School Release Form(ED) Time of Disposition: 17:17
[2018-12-06 15:51] LABS: Alanine Aminotransferase 15 units/L (7-56); Albumin 4.5 g/dL (3.9-5); BUN/Creatinine Ratio 17; Blood Urea Nitrogen 10 mg/dL (7-17); Calcium 9.2 mg/dL (8.4-10.2); Hemolysis Index 2
--- NOTE | 2018-12-06 15:59 | XRay Report ---
ABDOMEN 2 VIEW(S) INDICATION / CLINICAL INFORMATION: Upper abdominal and back pain. COMPARISON: None available. FINDINGS: TUBES / LINES: None. BOWEL GAS PATTERN: There is a moderate amount of stool throughout the colon. I see no evidence of bow el obstruction or mass effect. FREE AIR / EXTRALUMINAL GAS: None seen. ADDITIONAL FINDINGS: There are a couple of calculi overlying the lower pole the left kidney. IMPRESSION: 1. Left nephrolithiasis. 2. No acute abnormality. Signer Name: Amadou Mccullough MD Signed: 12/06/2018 3:55 PM Workstation Name: [id number]
--- NOTE | 2018-12-06 15:59 | XRay Report ---
CHEST 2 VIEWS INDICATION / CLINICAL INFORMATION: MAIN: Upper abd pain, hx of hiatal hernia Pt. presents with c/o upper abd pain and back pain. Pt. h as been seen several times recently for same complaint. . COMPARISON: None available. FINDINGS: SUPPORT DEVICES: None. HEART / MEDIASTINUM: No significant abnormality. LUNGS / PLEURA: No significant pulmonary or pleural abnormality. No pneumothorax. ADDITIONAL FINDINGS: No significant additional findings. IMPRESSION: 1. No acute findings. Signer Name: Lyn Cabrera MD Signed: 12/06/2018 3:55 PM Workstation Name: [id number]
[2018-12-06 17:31] VITALS: BP 143/77
== END 2018-12-06 17:31 | disposition home or self-care (01) ==
LOC: ED 12:12
DX: K21.9 Gastro-esophageal reflux disease without esophagitis (principal); I10 Essential (primary) hypertension; Z88.0 Allergy status to penicillin
CPT/HCPCS: 36415; 71046; 74019; 80053; 81001; 83690; 85025; 96374; 96375; 99284; J2270; J2405

== ENCOUNTER 2019-05-01 23:33 | Inpatient (IN) | payer OTHER ==
[2019-05-02 00:10] LABS: Eosinophils # (Auto) 0.2 K/mm3 (0.0-0.4); Eosinophils % (Auto) 4.8 % (0.0-4.3); Lymphocytes # (Auto) 1.5 K/mm3 (1.2-5.4); Lymphocytes % (Auto) 34.5 % (13.4-35.0); Mean Corpuscular HGB Conc 34 % (30-34); Mean Corpuscular Volume 91 fl (79-97); Monocytes # (Auto) 0.3 K/mm3 (0.0-0.8); Monocytes % (Auto) 7.3 % (0.0-7.3); Platelet Count 276 K/mm3 (140-440); Red Blood Count 1.48 M/mm3 (3.65-5.03)
[2019-05-02 00:25] LABS: Red Cell Distribution Width 21.2 % (13.2-15.2)
[2019-05-02 00:28] LABS: Hematocrit 13.5 % (30.3-42.9); Hemoglobin 4.5 gm/dl (10.1-14.3)
[2019-05-02 00:32] LABS: Alanine Aminotransferase 8 units/L (7-56); Albumin 3.8 g/dL (3.9-5); BUN/Creatinine Ratio 13; Blood Urea Nitrogen 9 mg/dL (7-17); Hemolysis Index 0
[2019-05-02] MEDS ORDERED: SODIUM CHLORIDE 0.9% 500 ML 500 ML IV ONE ×2 (01:58→02:31)
[2019-05-02] MEDS ORDERED: PANTOPRAZOLE 40 MG INJ IV STA (01:58)
[2019-05-02] MEDS ORDERED: MORPHINE 4 MG/1 ML INJ IV ONE (01:59)
[2019-05-02] MEDS ORDERED: ONDANSETRON 4 MG/2 ML INJ IV ONE (01:59)
--- NOTE | 2019-05-02 02:07 | Emergency Department Report ---
ED GI Bleed HPI - General Chief complaint: Abdominal Pain Stated complaint: ABD/BACK PAIN/DIZZINESS Time Seen by Provider: 05/02/19 01:58 Source: patient Mode of arrival: Ambulatory Limitations: No Limitations - History of Present Illness Initial comments: Mrs. Mccullough is a 53-year-old female with history of GI bleed, duodenal ulcer, esophagitis, hiatal hernia, GERD, hypertension, anemia who has previously underwent endoscopy and have received transfusions. She presents with lightheadedness dizziness generalized abdominal pain radiating to the back. She has had dark stools for the last day. When she stands up she feels lightheaded. She took [place] recently to address the stomach upset or reflux. She feels that the [place] caused The bleeding in her stools. Denies hematemesis. MD complaint: other (Dark stool) -: Gradual, days(s) (4 days of abdominal pain 1 day of dark stool) Severity scale (0 -10): 8 Quality: cramping, dull Consistency: constant Improves with: none Worsens with: none Context: history of GI bleed Associated Symptoms: malaise - Related Data Previous Rx's Medication Instructions Recorded Last Taken Type Ferrous Sulfate [Feosol 325 MG tab] 325 mg PO BID #60 tablet 03/04/18 Unknown Rx HYDROcodone/APAP 5-325 [[place] 1 each PO Q6HR PRN #12 tablet 10/25/18 Unknown Rx 5/325] Lansoprazole [Prevacid] 30 mg PO BID #60 capsule. 10/26/18 Unknown Rx traMADoL [Ultram] 50 mg PO Q6HR PRN #14 tablet 10/26/18 Unknown Rx HYDROcodone/APAP 5-325 [[place] 1 each PO Q6HR PRN #15 tablet 11/29/18 Unknown Rx 5-325 mg TAB] Nitrofurantoin [place]/M-Cryst 100 mg PO Q12HR #14 capsule 11/29/18 Unknown Rx [Macrobid CAP] Ondansetron [Zofran ODT TAB] 4 mg PO Q8HR #20 tab.rapdis 11/29/18 Unknown Rx Pantoprazole [Protonix TAB] 40 mg PO QDAY #30 tablet 11/29/18 Unknown Rx Sucralfate [Carafate] 1 gm PO Q6HR #30 tablet 11/29/18 Unknown Rx Allergies Allergy/AdvReac Type Severity Reaction Status Date / Time Penicillins Allergy Swelling Verified 12/28/13 17:26 ED Review of Systems ROS: Stated complaint: ABD/BACK PAIN/DIZZINESS Other details as noted in HPI Comment: All other systems reviewed and negative Constitutional: malaise Respiratory: denies: cough Cardiovascular: denies: chest pain Gastrointestinal: abdominal pain, melena Musculoskeletal: back pain ED Past Medical Hx - Past Medical History Previous Medical History?: Yes Hx Hypertension: Yes Hx Heart Attack/AMI: No Hx Congestive Heart Failure: No Hx Diabetes: No Hx GERD: Yes Hx Liver Disease: No Hx Renal Disease: No Hx Seizures: No Hx Asthma: No Hx COPD: No Additional medical history: anemia. Bleeding ulcer - Surgical History Past Surgical History?: Yes Additional Surgical History: Endoscopy for bleeding ulcer 5 years ago. en doscopy 03/01/2018 - Social History Smoking Status: Never Smoker - Medications Home Medications: Home Medications Medication Instructions Recorded Confirmed Last Taken Type Ferrous Sulfate [Feosol 325 MG tab] 325 mg PO BID #60 tablet 03/04/18 Unknown Rx HYDROcodone/APAP 5-325 [[place] 1 each PO Q6HR PRN #12 tablet 10/25/18 Unknown Rx 5/325] Lansoprazole [Prevacid] 30 mg PO BID #60 capsule. 10/26/18 Unknown Rx traMADoL [Ultram] 50 mg PO Q6HR PRN #14 tablet 10/26/18 Unknown Rx HYDROcodone/APAP 5-325 [[place] 1 each PO Q6HR PRN #15 tablet 11/29/18 Unknown Rx 5-325 mg TAB] Nitrofurantoin [place]/M-Cryst 100 mg PO Q12HR #14 capsule 11/29/18 Unknown Rx [Macrobid CAP] Ondansetron [Zofran ODT TAB] 4 mg PO Q8HR #20 tab.rapdis 11/29/18 Unknown Rx Pantoprazole [Protonix TAB] 40 mg PO QDAY #30 tablet 11/29/18 Unknown Rx Sucralfate [Carafate] 1 gm PO Q6HR #30 tablet 11/29/18 Unknown Rx ED Physical Exam - General Limitations: No Limitations General appearance: alert, in no apparent distress, other (Obviously pale) - Head Head exam: Present: atraumatic, normocephalic - Eye Eye exam: Present: normal appearance - ENT ENT exam: Present: mucous membranes moist - Neck Neck exam: Present: normal inspection, full ROM - Respiratory Respiratory exam: Present: normal lung sounds bilaterally. Absent: respiratory distress, wheezes, rales, rhonchi - Cardiovascular Cardiovascular Exam: Present: regular rate, normal rhythm, normal heart sounds. Absent: systolic murmur, diastolic murmur, rubs, gallop - GI/Abdominal GI/Abdominal exam: Present: soft, normal bowel sounds. Absent: distended, tenderness, guarding, rebound - Rectal Rectal exam: Present: heme (+) stool, hemorrhoids (Small nonthrombosed hemorrhoid), other (Dark brown stool) - Extremities Exam Extremities exam: Present: normal inspection - Neurological Exam Neurological exam: Present: alert, oriented X3 - Psychiatric Psychiatric exam: Present: normal affect, normal mood - Skin Skin exam: Present: warm, dry, intact, normal color. Absent: rash ED Course Vital Signs 05/02/19 00:11 Temperature 98.2 F Pulse Rate 110 H Respiratory 20 Rate Blood Pressure 114/65 [Left] O2 Sat by Pulse 98 Oximetry ED Medical Decision Making - Lab Data Result diagrams: 05/01/19 23:58 05/01/19 23:58 - Medical Decision Making Ms. Mccullough presents with subacute GI bleed with heme positive stools severe anemia will require transfusion. Admitted to the hospitalist service. Transfusion ordered here in the emergency department as well as PPI. PO potassium repletion in the ED. Critical care attestation.: If time is entered above; I have spent that time in minutes in the direct care of this critically ill patient, excluding procedure time. ED Disposition Clinical Impression: Anemia, GI bleed, Erosive esophagitis, Duodenal ulcer, Hypokalemia Disposition: OP ADMIT IP TO THIS HOSP Is pt being admited?: Yes Does the pt Need Aspirin: No Condition: Stable
[2019-05-02] MEDS ORDERED: POTASSIUM CHLORIDE ER 20 MEQ TAB PO ONE (02:18)
[2019-05-02] MEDS ORDERED: SODIUM CHLORIDE 0.9% 1000 ML 1,000 ML ONE (02:25)
[2019-05-02] MEDS ORDERED: ONDANSETRON 4 MG/2 ML INJ IV PRN (03:49)
[2019-05-02] MEDS ORDERED: ACETAMINOPHEN 325 MG TAB PO PRN (03:49)
[2019-05-02] MEDS ORDERED: MAGNESIUM HYDROXIDE (MOM) ORAL LIQD UDC PO PRN (03:49)
--- NOTE | 2019-05-02 03:59 | History and Physical Report ---
History of Present Illness Date of examination: 05/02/19 Date of admission: 05/02/19 03:09 Chief complaint: Dark brown stool History of present illness: 53-year-old female with known history of esophagitis, duodenitis and GERD presenting to the emergency room today complaining of epigastric discomfort and very dark brown stool for 1 day. She denies any black stool and denies any bright red blood per rectum. Patient has known history of GERD and she took some Ti[place] for symptom relief over the past few days. She is known to take a Goody powder occasionally for pain. Patient denies any coffee-ground emesis. Patient has had endoscopy sometime in February 2018 and also about 5 years ago. She indicates that she had blood transfusion about 5 years ago for anemia. Work-up in the emergency room today reveals a hemoglobin of 4.5. Patient has been scheduled for blood transfusion. Past History Past Medical History: anemia, GERD, other (Esophagitis, duodenitis) Past Surgical History: Other (Endoscopy for bleeding ulcer in the past) Social history: no significant social history Family history: no significant family history Medications and Allergies Allergies Allergy/AdvReac Type Severity Reaction Status Date / Time Penicillins Allergy Swelling Verified 12/28/13 17:26 Home Medications Medication Instructions Recorded Confirmed Last Taken Type Ferrous Sulfate [Feosol 325 MG tab] 325 mg PO BID #60 tablet 03/04/18 Unknown Rx HYDROcodone/APAP 5-325 [[place] 1 each PO Q6HR PRN #12 tablet 10/25/18 Unknown Rx 5/325] Lansoprazole [Prevacid] 30 mg PO BID #60 capsule. 10/26/18 Unknown Rx traMADoL [Ultram] 50 mg PO Q6HR PRN #14 tablet 10/26/18 Unknown Rx HYDROcodone/APAP 5-325 [[place] 1 each PO Q6HR PRN #15 tablet 11/29/18 Unknown Rx 5-325 mg TAB] Nitrofurantoin [place]/M-Cryst 100 mg PO Q12HR #14 capsule 11/29/18 Unknown Rx [Macrobid CAP] Ondansetron [Zofran ODT TAB] 4 mg PO Q8HR #20 tab.rapdis 11/29/18 Unknown Rx Pantoprazole [Protonix TAB] 40 mg PO QDAY #30 tablet 11/29/18 Unknown Rx Sucralfate [Carafate] 1 gm PO Q6HR #30 tablet 11/29/18 Unknown Rx Active Meds: Active Medications Acetaminophen (Tylenol) 650 mg PO Q4H PRN PRN Reason: Pain MILD(1-3)/Fever >100.5/HALEY Magnesium Hydroxide (Milk Of Magnesia) 30 ml PO Q4H PRN PRN Reason: Constipation Ondansetron HCl (Zofran) 4 mg IV Q8H PRN PRN Reason: Nausea And Vomiting Sodium Chloride (Sodium Chloride Flush Syringe 10 Ml) 10 ml IV BID CONCEPCIÓN Sodium Chloride (Sodium Chloride Flush Syringe 10 Ml) 10 ml IV PRN PRN PRN Reason: LINE FLUSH Review of Systems Constitutional: no fever, no chills Cardiovascular: no chest pain, no palpitations Respiratory: no cough, no shortness of breath Gastrointestinal: no nausea, no vomiting, no diarrhea, no heartburn Genitourinary Female: no dysuria, no hematuria Musculoskeletal: no neck pain, no low back pain Integumentary: no rash, no pruritis Neurological: no headaches, no confusion Exam - Constitutional Vitals: Temp Pulse Resp BP Pulse Ox 98.2 F 110 H 16 129/82 99 05/02/19 03:50 05/02/19 03:50 05/02/19 03:50 05/02/19 03:50 05/02/19 03:50 General appearance: Present: no acute distress, well-nourished - EENT Eyes: Present: PERRL, EOM intact ENT: hearing intact, clear oral mucosa, dentition normal - Neck Neck: Present: supple, normal ROM - Respiratory Respiratory effort: normal Respiratory: bilateral: CTA - Cardiovascular Rhythm: regular Heart Sounds: Present: S1 & S2 - Extremities Extremities: no ischemia, No edema, Full ROM Extremity abnormal: erythema Peripheral Pulses: within normal limits - Abdominal General gastrointestinal: Present: soft, non-tender, non-distended - Integumentary Integumentary: Present: clear, warm, dry - Musculoskeletal Musculoskeletal: strength equal bilaterally - Psychiatric Psychiatric: appropriate mood/affect, intact judgment & insight, cooperative - Neurologic Neurologic: CNII-XII intact, moves all extremities Results - Labs CBC & Chem 7: 05/01/19 23:58 05/01/19 23:58 Labs: Abnormal lab results 05/01/19 05/01/1905/01/20 Range/Units 23:58 23:58 02:00 WBC 4.2 L (4.5-11.0) K/mm3 RBC 1.48 L (3.65-5.03) M/mm3 Hgb 4.5 L* (10.1-14.3) gm/dl Hct 13.5 L* (30.3-42.9) % RDW 21.2 H (13.2-15.2) % Eos % (Auto) 4.8 H (0.0-4.3) % Potassium 2.6 L* (3.6-5.0) mmol/L Chloride 92.3 L (98-107) mmol/L Glucose 104 H (65-100) mg/dL Albumin 3.8 L (3.9-5) g/dL Crossmatch See Detail Assessment and Plan - Patient Problems (1) Anemia Current Visit: Yes Status: Acute Plan to address problem: Possibly due to GI bleed. We transfuse with will red blood cells (2) Duodenal ulcer Current Visit: Yes Status: Acute Plan to address problem: Meanwhile will place patient on IV Protonix. (3) DVT prophylaxis Current Visit: No Status: Acute (4) Full code status Current Visit: Yes Status: Acute
[2019-05-02] MEDS: MORPHINE 2 MG/1 ML INJ IV PRN ×3 (05:56→22:44)
[2019-05-02] MEDS ORDERED: SODIUM CHLORIDE 0.9% 500 ML 500 ML IV SCH (08:00)
--- NOTE | 2019-05-02 10:27 | Event Note ---
Date: 05/02/19 This is a follow-up from an admission earlier this morning. Patient seen and examined. We will continue to plan as outlined in H&P. Patient with 2 units of PRBCs ordered and currently receiving transfusion. Await GI consultation. Total time equals 25 minutes with greater than 50% spent on coordination of care and counseling.
--- NOTE | 2019-05-02 10:37 | Gastroenterology Consultation ---
History of Present Illness - Reason for Consult Consult date: 05/02/19 anemia, gi bleed Requesting physician: AUSTEN RAY - History of Present Illness The patient is a 53 yo wf who present with generalized weakness/fatigue and dyspepsia sx's. Patient with known h/o PUD (duodenal ulcer) and iron deficiency anemia. She has had progressive fatigue for the past few days. She noticed her stools being dark brown colored ~2 days ago but no overt bleeding or black a ppearing stools. She is not on iron replacement therapy. Denies nsaid's. On admission, pt found to have severe anemia, vitals stable, no signs of bleeding since admission. She has not been taking PPI as previously prescribed for PUD as she ran out of medication. Past History Past Medical History: anemia, GERD, other (Esophagitis, duodenitis) Past Surgical History: Other (Endoscopy for bleeding ulcer in the past) Social history: no significant social history Family history: no significant family history Medications and Allergies Allergies Allergy/AdvReac Type Severity Reaction Status Date / Time Penicillins Allergy Swelling Verified 12/28/13 17:26 Home Medications Medication Instructions Recorded Confirmed Last Taken Type Ferrous Sulfate [Feosol 325 MG tab] 325 mg PO BID #60 tablet 03/04/18 Unknown Rx HYDROcodone/APAP 5-325 [[place] 1 each PO Q6HR PRN #12 tablet 10/25/18 Unknown Rx 5/325] Lansoprazole [Prevacid] 30 mg PO BID #60 capsule. 10/26/18 Unknown Rx traMADoL [Ultram] 50 mg PO Q6HR PRN #14 tablet 10/26/18 Unknown Rx HYDROcodone/APAP 5-325 [[place] 1 each PO Q6HR PRN #15 tablet 11/29/18 Unknown Rx 5-325 mg TAB] Nitrofurantoin [place]/M-Cryst 100 mg PO Q12HR #14 capsule 11/29/18 Unknown Rx [Macrobid CAP] Ondansetron [Zofran ODT TAB] 4 mg PO Q8HR #20 tab.rapdis 11/29/18 Unknown Rx Pantoprazole [Protonix TAB] 40 mg PO QDAY #30 tablet 11/29/18 Unknown Rx Sucralfate [Carafate] 1 gm PO Q6HR #30 tablet 11/29/18 Unknown Rx Active Meds: Active Medications Acetaminophen (Tylenol) 650 mg PO Q4H PRN PRN Reason: Pain MILD(1-3)/Fever >100.5/HALEY Sodium Chloride (Nacl 0.9% 500 Ml) 500 mls @ 50 mls/hr IV DIRECT CONCEPCIÓN Last Admin: 05/02/19 08:01 Dose: 50 mls/hr Documented by: Magnesium Hydroxide (Milk Of Magnesia) 30 ml PO Q4H PRN PRN Reason: Constipation Morphine Sulfate (Morphine) 2 mg IV Q6H PRN PRN Reason: Pain, Moderate (4-6) Last Admin: 05/02/19 05:56 Dose: 2 mg Documented by: Ondansetron HCl (Zofran) 4 mg IV Q8H PRN PRN Reason: Nausea And Vomiting Sodium Chloride (Sodium Chloride Flush Syringe 10 Ml) 10 ml IV BID CONCEPCIÓN Sodium Chloride (Sodium Chloride Flush Syringe 10 Ml) 10 ml IV PRN PRN PRN Reason: LINE FLUSH Reviewed/updated patient's home and current medications Review of Systems - Review of Systems All systems: negative (per HPI) Exam - Constitutional Vital Signs: Temp Pulse Resp BP Pulse Ox 98.1 F 96 H 18 133/70 98 05/02/19 07:20 05/02/19 08:19 05/02/19 10:26 05/02/19 08:19 05/02/19 08:19 General appearance: no acute distress - EENT Eyes: PERRL, EOM intact ENT: hearing intact - Respiratory Respiratory effort: normal Respiratory: bilateral: CTA - Cardiovascular Rhythm: regular Heart Sounds: Present: S1 & S2 - Gastrointestinal General gastrointestinal: Present: soft, non-tender, non-distended - Integumentary Integumentary: Present: clear, warm - Neurologic Neurological: alert and oriented x3 - Psychiatric Psychiatric: appropriate mood/affect - Labs CBC & Chem 7: 05/01/19 23:58 05/01/19 23:58 Lab Results: Laboratory Results - last 24 hr 05/01/19 05/01/19 05/02/19 23:58 23:58 02:00 WBC 4.2 L RBC 1.48 L Hgb 4.5 L* Hct 13.5 L* MCV 91 MCH 31 MCHC 34 RDW 21.2 H Plt Count 276 Lymph % (Auto) 34.5 [place] % (Auto) 7.3 Eos % (Auto) 4.8 H Baso % (Auto) 1.0 Lymph # 1.5 [place] # 0.3 Eos # 0.2 Baso # 0.0 Seg Neutrophils % 52.4 Seg Neutrophils # 2.2 Sodium 138 Potassium 2.6 L* Chloride 92.3 L Carbon Dioxide 30 Anion Gap 18 BUN 9 Creatinine 0.7 Estimated GFR > 60 BUN/Creatinine Ratio 13 Glucose 104 H Calcium 9.0 Magnesium Total Bilirubin 0.30 AST 20 ALT 8 Alkaline Phosphatase 64 Total Protein 6.8 Albumin 3.8 L Albumin/Globulin Ratio 1.3 Lipase 33 HCG, Qual Blood Type A POSITIVE Antibody Screen Negative Crossmatch See Detail 05/02/19 05/02/19 02:08 03:02 WBC RBC Hgb Hct MCV MCH MCHC RDW Plt Count Lymph % (Auto) [place] % (Auto) Eos % (Auto) Baso % (Auto) Lymph # [place] # Eos # Baso # Seg Neutrophils % Seg Neutrophils # Sodium Potassium Chloride Carbon Dioxide Anion Gap BUN Creatinine Estimated GFR BUN/Creatinine Ratio Glucose Calcium Magnesium 2.00 Total Bilirubin AST ALT Alkaline Phosphatase Total Protein Albumin Albumin/Globulin Ratio Lipase HCG, Qual Positive Blood Type Antibody Screen Crossmatch Assessment and Plan 1. Iron deficiency anemia 2. History of peptic ulcer disease -denies overt bleeding; will need egd given known h/o PUD/DU and severe anemia on admission. Pt ate breakfast this morning so will plan for EGD tomorrow. Okay for po intake today, cont on IV PPI and NPO at midnight. receiving blood transfusions, goal hgb > 7.
[2019-05-02] MEDS: PANTOPRAZOLE 40 MG INJ IV SCH ×2 (12:13→22:44)
[2019-05-03] MEDS ORDERED: WATER FOR IRRIG STERILE 250 ML BOTTLE IR ONE (07:43)
[2019-05-03] MEDS ORDERED: WATER FOR IRRIG STERILE 1,000 ML BOTTLE ONE (07:43)
[2019-05-03 08:50] LABS: Basophils % (Auto) 0.7 % (0.0-1.8); Eosinophils # (Auto) 0.3 K/mm3 (0.0-0.4); Eosinophils % (Auto) 8.5 % (0.0-4.3); Hemoglobin 6.5 gm/dl (10.1-14.3); Lymphocytes % (Auto) 31.2 % (13.4-35.0); Mean Corpuscular HGB Conc 33 % (30-34); Mean Corpuscular Volume 89 fl (79-97); Monocytes # (Auto) 0.3 K/mm3 (0.0-0.8); Monocytes % (Auto) 8.6 % (0.0-7.3); Platelet Count 162 K/mm3 (140-440); Red Blood Count 2.24 M/mm3 (3.65-5.03)
[2019-05-03 08:58] LABS: Hematocrit 19.8 % (30.3-42.9)
[2019-05-03 09:05] LABS: BUN/Creatinine Ratio 15; Blood Urea Nitrogen 6 mg/dL (7-17); Calcium 8.2 mg/dL (8.4-10.2); Hemolysis Index 2
--- NOTE | 2019-05-03 09:10 | Gastroenterology Progress Note ---
Assessment and Plan 1. Acute on chronic anemia - denies overt gi bleeding. h/o DU with bleeding from the past however. EGD planned for today, however given low potassium on admission (no repeat levels) and positive test (no confirmatory test) will hold off on endoscopy as no signs of active bleeding. tentatively plan for tomorrow. okay for full liquid diet today, npo at midnight Subjective Date of service: 05/03/19 Principal diagnosis: anemia, possible gi bleed Interval history: pt denies signs of bleeding since admission. denies abd pain. Objective - Constitutional Vitals: Temp Pulse Resp BP Pulse Ox 99.3 F 91 H 16 124/68 94 05/03/19 04:20 05/03/19 04:20 05/03/19 04:20 05/03/19 04:20 05/03/19 04:20 General appearance: no acute distress - Respiratory Respiratory effort: normal Respiratory: bilateral: CTA - Cardiovascular Rhythm: regular Heart Sounds: Present: S1 & S2 - Gastrointestinal General gastrointestinal: Present: soft, non-tender, non-distended - Neurologic Neurological: alert and oriented x3 - Psychiatric Psychiatric: appropriate mood/affect - Labs CBC & Chem 7: 05/03/19 08:05 05/03/19 08:05 Labs: Laboratory Results - last 24 hr 05/02/19 05/03/19 05/03/19 02:00 08:05 08:05 WBC 3.3 L RBC 2.24 L Hgb 6.5 L Hct 19.8 L* D MCV 89 MCH 29 MCHC 33 RDW 18.0 H Plt Count 162 Lymph % (Auto) 31.2 [place] % (Auto) 8.6 H Eos % (Auto) 8.5 H Baso % (Auto) 0.7 Lymph # 1.0 L [place] # 0.3 Eos # 0.3 Baso # 0.0 Seg Neutrophils % 51.0 Seg Neutrophils # 1.7 L Sodium 141 Chloride 102.8 Carbon Dioxide 24 Anion Gap 18 BUN 6 L Creatinine 0.4 L Estimated GFR > 60 BUN/Creatinine Ratio 15 Glucose 92 Calcium 8.2 L Crossmatch See Detail
[2019-05-03 09:15] LABS: INR 0.92 (0.87-1.13)
[2019-05-03 09:16] LABS: Partial Thromboplastin Time 22.3 Sec. (24.2-36.6)
[2019-05-03] MEDS ORDERED: SODIUM CHLORIDE 0.9% 500 ML 500 ML IV SCH (09:30)
--- NOTE | 2019-05-03 09:42 | Progress Note ---
Assessment and Plan Assessment and plan: (1) Anemia Current Visit: Yes Status: Acute Plan to address problem: Possibly due to GI bleed. We transfuse with will red blood cells (2) Duodenal ulcer Current Visit: Yes Status: Acute Plan to address problem: Meanwhile will place patient on IV Protonix. (3) DVT prophylaxis Current Visit: No Status: Acute (4) Full code status Current Visit: Yes Status: Acute Hospitalist Physical - Physical exam Narrative exam: GEN: Not in acute distress, lying in bed HEENT: Normocephalic, atraumatic, Neck: supple, No JVD Lungs: Bilateral basal crackles, heart;S1 and S2 reg, tachy, no murmurs, rubs or gallop Abd:soft, non tender, non distended, normal bowel sounds Ext: No edema, no clubbing, no cyanosis, Neuro: AAO x 3. No focal neuro signs - Constitutional Vitals: Temp Pulse Resp BP Pulse Ox 99.3 F 91 H 16 124/68 94 05/03/19 04:20 05/03/19 04:20 05/03/19 04:20 05/03/19 04:20 05/03/19 04:20 General appearance: Present: no acute distress, well-nourished Results - Labs CBC & Chem 7: 05/03/19 23:49 05/03/19 08:05 Labs: Laboratory Last Values WBC 3.3 K/mm3 (4.5-11.0) L 05/03/19 08:05 RBC 2.24 M/mm3 (3.65-5.03) L 05/03/19 08:05 Hgb 6.5 gm/dl (10.1-14.3) L 05/03/19 08:05 Hct 19.8 % (30.3-42.9) L* D 05/03/19 08:05 MCV 89 fl (79-97) 05/03/19 08:05 MCH 29 pg (28-32) 05/03/19 08:05 MCHC 33 % (30-34) 05/03/19 08:05 RDW 18.0 % (13.2-15.2) H 05/03/19 08:05 Plt Count 162 K/mm3 (140-440) 05/03/19 08:05 Lymph % (Auto) 31.2 % (13.4-35.0) 05/03/19 08:05 [place] % (Auto) 8.6 % (0.0-7.3) H 05/03/19 08:05 Eos % (Auto) 8.5 % (0.0-4.3) H 05/03/19 08:05 Baso % (Auto) 0.7 % (0.0-1.8) 05/03/19 08:05 Lymph # 1.0 K/mm3 (1.2-5.4) L 05/03/19 08:05 [place] # 0.3 K/mm3 (0.0-0.8) 05/03/19 08:05 Eos # 0.3 K/mm3 (0.0-0.4) 05/03/19 08:05 Baso # 0.0 K/mm3 (0.0-0.1) 05/03/19 08:05 Seg Neutrophils % 51.0 % (40.0-70.0) 05/03/19 08:05 Seg Neutrophils # 1.7 K/mm3 (1.8-7.7) L 05/03/19 08:05 PT 12.4 Sec. (12.2-14.9) 05/03/19 08:05 INR 0.92 (0.87-1.13) 05/03/19 08:05 APTT 22.3 Sec. (24.2-36.6) L 05/03/19 08:05 Sodium 141 mmol/L (137-145) 05/03/19 08:05 Potassium 3.3 mmol/L (3.6-5.0) L D 05/03/19 08:05 Chloride 102.8 mmol/L (98-107) 05/03/19 08:05 Carbon Dioxide 24 mmol/L (22-30) 05/03/19 08:05 Anion Gap 18 mmol/L 05/03/19 08:05 BUN 6 mg/dL (7-17) L 05/03/19 08:05 Creatinine 0.4 mg/dL (0.7-1.2) L 05/03/19 08:05 Estimated GFR > 60 ml/min 05/03/19 08:05 BUN/Creatinine Ratio 15 % 05/03/19 08:05 Glucose 92 mg/dL (65-100) 05/03/19 08:05 Calcium 8.2 mg/dL (8.4-10.2) L 05/03/19 08:05 Magnesium 2.00 mg/dL (1.7-2.3) 05/02/19 03:02 Total Bilirubin 0.30 mg/dL (0.1-1.2) 05/01/19 23:58 AST 20 units/L (5-40) 05/01/19 23:58 ALT 8 units/L (7-56) 05/01/19 23:58 Alkaline Phosphatase 64 units/L (35-129) 05/01/19 23:58 Total Protein 6.8 g/dL (6.3-8.2) 05/01/19 23:58 Albumin 3.8 g/dL (3.9-5) L 05/01/19 23:58 Albumin/Globulin Ratio 1.3 % 05/01/19 23:58 Lipase 33 units/L (13-60) 05/01/19 23:58 HCG, Qual Positive (Negative) 05/02/19 02:08 HCG, Quant 4.47 mIU/mL (0-4) H 05/03/19 08:40 Blood Type A POSITIVE 05/02/19 02:00 Antibody Screen Negative 05/02/19 02:00 Crossmatch See Detail 05/02/19 02:00 Andrea/IV: Voiding Method Toilet IV Catheter Type [Left Forearm INT / Saline Lock ] IV Catheter Type [Right] INT / Saline Lock Active Medications - Current Medications Current Medications: Generic Name Dose Route Start Last Admin Trade Name Freq PRN Reason Stop Dose Admin Acetaminophen 650 mg 05/02/19 03:49 Tylenol PO Q4H PRN Pain MILD(1-3)/Fever >100.5/HALEY Sodium Chloride 500 mls @ 0 mls/hr 05/03/19 09:30 Nacl 0.9% 500 Ml IV 05/03/19 18:00 ONCE CONCEPCIÓN As Directed Magnesium Hydroxide 30 ml 05/02/19 03:49 Milk Of Magnesia PO Q4H PRN Constipation Morphine Sulfate 2 mg 05/02/19 05:37 05/02/19 22:44 Morphine IV 2 mg Q6H PRN Administration Pain, Moderate (4-6) Ondansetron HCl 4 mg 05/02/19 03:49 Zofran IV Q8H PRN Nausea And Vomiting Pantoprazole Sodium 40 mg 05/02/19 12:00 05/02/19 22:44 Protonix IV 40 mg BID CONCEPCIÓN Administration Sodium Chloride 10 ml 05/02/19 10:00 05/02/19 22:45 Sodium Chloride Flush Syringe 10 Ml IV 10 ml BID CONCEPCIÓN Administration Sodium Chloride 10 ml 05/02/19 03:49 05/02/19 22:45 Sodium Chloride Flush Syringe 10 Ml IV 10 ml PRN PRN Administration LINE FLUSH
[2019-05-03] MEDS: PANTOPRAZOLE 40 MG INJ IV SCH ×2 (10:02→22:24)
[2019-05-03] MEDS: MORPHINE 2 MG/1 ML INJ IV PRN ×2 (10:02→17:46)
[2019-05-03] MEDS ORDERED: FLU VACC QUAD 2019-20 (3 YR UP)/PF 60 MCG/0.5 ML SYRINGE IM ONE (12:00)
--- NOTE | 2019-05-03 17:08 | Event Note ---
Date: 05/03/19 Patient's marginally elevated serum HCG was noted and may warrant repeat to r/o lab error. If concerns remain after patient stabilized, she is most welcome to come to [facility] as an outpatient for review.
[2019-05-04] MEDS: MORPHINE 2 MG/1 ML INJ IV PRN ×2 (00:01→10:23)
[2019-05-04 00:15] LABS: Hematocrit 27.3 % (30.3-42.9); Hemoglobin 9.1 gm/dl (10.1-14.3)
[2019-05-04 06:01] LABS: Mean Corpuscular HGB Conc 32 % (30-34); Mean Corpuscular Volume 92 fl (79-97); Platelet Count 163 K/mm3 (140-440); Red Blood Count 3.05 M/mm3 (3.65-5.03); Red Cell Distribution Width 17.2 % (13.2-15.2)
[2019-05-04 06:18] LABS: BUN/Creatinine Ratio 15; Blood Urea Nitrogen 6 mg/dL (7-17); Calcium 8.6 mg/dL (8.4-10.2); Hemolysis Index 3
[2019-05-04] MEDS ORDERED: SODIUM CHLORIDE 0.9% 1000 ML 1,000 ML IV SCH (08:15)
[2019-05-04] MEDS ORDERED: WATER FOR IRRIG STERILE 250 ML BOTTLE IR ONE (08:51)
[2019-05-04] MEDS ORDERED: WATER FOR IRRIG STERILE 1,000 ML BOTTLE ONE (08:51)
[2019-05-04] MEDS ORDERED: propofoL 200 MG/20 ML VIAL IV ONE (09:03)
--- NOTE | 2019-05-04 09:28 | Operative Report ---
Operative Report Operative Report: Esophagogastroduodenoscopy Procedure Note with biopsies Date of procedure: 05/04/2019 Endoscopist: Gab Araiza Pre-op diagnosis/indication: Iron deficiency anemia, melena Post-op diagnosis: Clean based duodenal ulcer, severe ulcerative esophagitis MEDICATIONS: MAC COMPLICATIONS: No immediate complications ESTIMATED BLOOD LOSS: Minimal DESCRIPTION OF PROCEDURE: After consent was obtained, the patient was placed in the left lateral decubitis position. The olympus endoscope was inserted into the patient's mouth under direct vision and advanced to the 2nd portion of the duodenum without difficulty. The patient tolerated the procedure well. The views of the mucosa were fair. The patient's vital signs were monitored continuously throughout the procedure. FINDINGS: There were multiple, cratered ulcerations with heaped up margins in the mid and lower third of the esophagus. Biopsies were obtained (rule out HSV, CMV, etc). No high risk bleeding stigmata There was a small amount of retained semi-solid liquid in the body of the stomach. Otherwise, the stomach appeared normal. Again seen was a duodenal ulcer along the duodenal sweep. The surrounding mucosa was inflamed and erythematous. There was mild stenosis related to the ulcer which was traversed with minimal resistance. No high risk bleeding stigmata. IMPRESSION: 1. Clean based duodenal ulcer without high risk bleeding stigmata 2. Ulcerative esophagitis. Biopsied to rule out hsv, cmv, etc. RECOMMENDATIONS: -PPI BID dosing -follow-up pathology -no nsaid medications -iron replacement therapy -repeat EGD in 2 months to assess for healing -can resume diet from gi stand point as tolerated Will sign off, please call as needed or with questions. Follow-up in GI clinic in 2-3 weeks after discharge.
[2019-05-04] MEDS: PANTOPRAZOLE 40 MG INJ IV SCH (10:23)
--- NOTE | 2019-05-04 10:34 | Anesthesia Consultation ---
Anesthesia Consult and Med Hx Date of service: 05/04/19 - Airway Anesthetic Teeth Evaluation: Good, Poor ROM Head & Neck: Adequate Mental/Hyoid Distance: Adequate Mallampati Class: Class III Intubation Access Assessment: Probably Good - Cardiac Exam Cardiac Exam: RRR - Pre-Operative Health Status ASA Pre-Surgery Classification: ASA2 Proposed Anesthetic Plan: MAC - Pulmonary Hx Smoking: No Hx Asthma: No Hx Respiratory Symptoms: No (no recent cough or flu-like symptoms) COPD: No Hx Pneumonia: No - Cardiovascular System Hx Hypertension: Yes Hx Coronary Artery Disease: No Hx Heart Attack/AMI: No Hx Percutaneous Transluminal Coronary Angioplasty (PTCA): No - Central Nervous System Hx Seizures: No CVA: No Hx Back Pain: Yes - Gastrointestinal Hx Ulcer: Yes (hx peptic/duodenal ulcers with GI bleed in the past) Hx Gastroesophageal Reflux Disease: Yes - Endocrine Hx Renal Disease: No Hx End Stage Renal Disease: No Hx Liver Disease: No Hx Insulin Dependent Diabetes: No Hx Non-Insulin Dependent Diabetes: No Hx Thyroid Disease: No - Hematic Hx Anemia: Yes - Other Systems Hx Alcohol Use: No Hx Substance Use: No Hx Cancer: No Hx Obesity: No
--- NOTE | 2019-05-04 10:35 | Anesthesia Day of Surgery ---
Anesthesia Day of Surgery - Day of Surgery Patient Examined: Yes Patient H&P Reviewed: Yes Patient is NPO: Yes Beta Blockers: No
--- NOTE | 2019-05-04 12:02 | Discharge Summary ---
Providers - Providers Date of Admission: 05/02/19 03:09 Date of discharge: 05/04/19 Attending physician: PEDRO FORMAN 05/02/19 02:56 Consult to Physician [CONS] Stat Comment: Consulting Provider: VERENICE SCANLON Physician Instructions: Reason For Exam: UGIB 05/03/19 09:08 Consult to Physician [CONS] Routine Comment: Consulting Provider: RAFAEL BRUNNER Physician Instructions: Reason For Exam: Positive preg test 05/03/19 09:28 Consult to Physician [CONS] Routine Comment: Consulting Provider: DONNIE VERDUGO Physician Instructions: Reason For Exam: Preg test positive in 53 yo Primary care physician: FRAUD REPRESENTATIVE Hospitalization Condition: Fair Disposition: DC-01 TO HOME OR SELFCARE Core Measure Documentation - Palliative Care Palliative Care/ Comfort Measures: Not Applicable - Core Measures Any of the following diagnoses?: none Exam - Constitutional Vitals: Temp Pulse Resp BP Pulse Ox 98.6 F 105 H 20 132/76 100 05/04/19 09:24 05/04/19 10:00 05/04/19 10:23 05/04/19 09:51 05/04/19 10:00 Plan Activity: no restrictions Diet: other (Soft diet) Plan of Treatment: 1.Follow up with PCP in 1 week. 2.Follow up with Dr. Gab Araiza GI in 1 week Follow up with: PRIMARY CAREMD [Primary Care Provider] - 7 Days Prescriptions: Ferrous Sulfate [Feosol 325 MG tab] 325 mg PO BID #60 tablet Pantoprazole [Protonix] 40 mg PO BID #60 tablet
[2019-05-04 17:08] VITALS: BP 120/63
== END 2019-05-04 19:32 | disposition home or self-care (01) | DRG 379 ==
LOC: ED 23:33 → 4A 05-02 03:09
PROVIDERS: ADMIT Internal Medicine Geriatric Medicine; ATTEND Internal Medicine
PROC: 30233N1 Transfusion of Nonautologous Red Blood Cells into Peripheral Vein, Percutaneous Approach (ICD-10-PCS; principal; 2019-05-02)
PROC: 0DB38ZX Excision of Lower Esophagus, Via Natural or Artificial Opening Endoscopic, Diagnostic (ICD-10-PCS; 2019-05-04)
DX: K26.4 Chronic or unspecified duodenal ulcer with hemorrhage (principal); D64.9 Anemia, unspecified; K22.11 Ulcer of esophagus with bleeding; E87.6 Hypokalemia; K44.9 Diaphragmatic hernia without obstruction or gangrene; K21.9 Gastro-esophageal reflux disease without esophagitis; I10 Essential (primary) hypertension; Z88.0 Allergy status to penicillin; Z79.899 Other long term (current) drug therapy
CPT/HCPCS: 36415; 80048; 80053; 83690; 83735; 84702; 84703; 85014; 85018; 85025; 85027; 85610; 85730; 86850; 86900; 86901; 86920; 88305; 90686; G0378; C9113; J2270; J2405; J2704; J7030; J7040; P9016

== ENCOUNTER 2019-05-14 18:09 | Emergency (ER) | payer SELFPAY ==
[2019-05-14 18:51] LABS: Basophils % (Auto) 0.6 % (0.0-1.8); Eosinophils # (Auto) 0.3 K/mm3 (0.0-0.4); Eosinophils % (Auto) 3.6 % (0.0-4.3); Hematocrit 25.7 % (30.3-42.9); Hemoglobin 8.5 gm/dl (10.1-14.3); Lymphocytes # (Auto) 1.5 K/mm3 (1.2-5.4); Lymphocytes % (Auto) 19.5 % (13.4-35.0); Mean Corpuscular HGB Conc 33 % (30-34); Mean Corpuscular Volume 92 fl (79-97); Monocytes # (Auto) 0.5 K/mm3 (0.0-0.8); Monocytes % (Auto) 6.4 % (0.0-7.3); Platelet Count 481 K/mm3 (140-440); Red Cell Distribution Width 17.9 % (13.2-15.2)
[2019-05-14 19:05] LABS: Alanine Aminotransferase 51 units/L (7-56); Albumin 3.9 g/dL (3.9-5); BUN/Creatinine Ratio 16; Blood Urea Nitrogen 8 mg/dL (7-17); Calcium 9.3 mg/dL (8.4-10.2); Hemolysis Index 9
[2019-05-14] MEDS ORDERED: SODIUM CHLORIDE 0.9% 1000 ML 1,000 ML IV ONE (20:04)
[2019-05-14] MEDS ORDERED: FAMOTIDINE 20 MG TAB PO ONE (20:04)
[2019-05-14] MEDS ORDERED: ONDANSETRON 4 MG/2 ML INJ IV ONE (20:04)
[2019-05-14] MEDS ORDERED: ALUM-MAG HYDROXIDE-SIMETHICONE 200-200-20MG/5ML ORAL LIQD 30 ML PO ONE (20:04)
[2019-05-14] MEDS ORDERED: DICYCLOMINE 20 MG TAB PO ONE (20:04)
[2019-05-14] MEDS ORDERED: LIDOCAINE VISCOUS 2% 15 ML ORAL LIQD PO ONE (20:04)
--- NOTE | 2019-05-14 20:21 | Emergency Department Report ---
ED Abdominal Pain HPI - General Chief Complaint: Abdominal Pain Stated Complaint: STOMACH PAIN Source: patient Mode of arrival: Ambulatory Limitations: No Limitations - History of Present Illness Initial Comments: Patient is a 53-year-old white female with a history of hypertension and peptic ulcer disease as well as anemia who presented to the ED with complaint of acute onset persistent epigastric pain that radiates to the left upper quadrant and right upper quadrant area with nausea for the last 1 week. Patient states that she was admitted to the hospital over 1 week ago and had to undergo blood transfusion because of upper GI bleed due to chronic NSAID use resulting in peptic ulcer disease. Patient states that she was prescribed PPI, Protonix but she has not been able to purchase this medicine since it was prescribed a week ago. Patient therefore states that she has not been taking anything for pain and that her pain gets worse with food consumption. Patient denies dizziness, fever, chills, vomiting, chest pain, shortness of breath, dysuria, urinary frequency and urgency, vaginal bleeding, hematemesis, metaplasia, headache, sore throat or diarrhea. MD Complaint: abdominal pain (epigastric and upper abdominal pain with nausea) -: Sudden, week(s) (1) Location: LUQ, RUQ, epigastric Radiation: LUQ, RUQ, epigastric Migration to: no migration Severity: severe Severity scale (0 -10): 7 Quality: cramping, sharp, burning Consistency: constant Improves With: nothing Worsens With: eating Context: recent surgery/procedure (EGD procedure) Associated Symptoms: denies other symptoms, nausea, anorexia. denies: vomiting, diarrhea, fever, chills, constipation, dysuria, hematemesis, hematochezia, melena, hematuria, syncope - Related Data Previous Rx's Medication Instructions Recorded Last Taken Type Ferrous Sulfate [Feosol 325 MG tab] 325 mg PO BID #60 tablet 05/04/19 Unknown Rx Pantoprazole [Protonix] 40 mg PO BID #60 tablet 05/04/19 Unknown Rx Dicyclomine [Bentyl] 20 mg PO Q6H PRN #30 tablet 05/15/19 Unknown Rx Famotidine [Pepcid] 20 mg PO Q12H #60 tablet 05/15/19 Unknown Rx Ferrous Sulfate [Ferrous Sulfate 324 mg PO DAILY #60 05/15/19 Unknown Rx 324 MG] Ondansetron [Zofran Odt] 4 mg PO Q6HR PRN #20 tab.rapdis 05/15/19 Unknown Rx Allergies Allergy/AdvReac Type Severity Reaction Status Date / Time Penicillins Allergy Swelling Verified 12/28/13 17:26 ED Review of Systems ROS: Stated complaint: STOMACH PAIN Other details as noted in HPI Constitutional: denies: chills, fever Eyes: denies: eye pain, eye discharge, vision change ENT: denies: ear pain, throat pain Respiratory: denies: cough, shortness of breath, wheezing Cardiovascular: denies: chest pain, palpitations Endocrine: no symptoms reported Gastrointestinal: abdominal pain, nausea. denies: diarrhea, hematemesis, hematochezia Genitourinary: denies: urgency, dysuria, discharge Musculoskeletal: denies: back pain, joint swelling, arthralgia Skin: denies: rash, lesions Neurological: denies: headache, weakness, paresthesias Psychiatric: denies: anxiety, depression Hematological/Lymphatic: denies: easy bleeding, easy bruising ED Past Medical Hx - Past Medical History Previous Medical History?: Yes Hx Hypertension: Yes Hx Heart Attack/AMI: No Hx Congestive Heart Failure: No Hx Diabetes: No Hx GERD: Yes Hx Liver Disease: No Hx Renal Disease: No Hx Seizures: No Hx Asthma: No Hx COPD: No Additional medical history: anemia. Bleeding ulcer - Surgical History Past Surgical History?: Yes Additional Surgical History: Endoscopy for bleeding ulcer 5 years ago. endoscopy 03/01/2018 - Social History Smoking Status: Never Smoker Substance Use Type: None - Medications Home Medications: Home Medications Medication Instructions Recorded Confirmed Last Taken Type Ferrous Sulfate [Feosol 325 MG tab] 325 mg PO BID #60 tablet 05/04/19 Unknown Rx Pantoprazole [Protonix] 40 mg PO BID #60 tablet 05/04/19 Unknown Rx Dicyclomine [Bentyl] 20 mg PO Q6H PRN #30 tablet 05/15/19 Unknown Rx Famotidine [Pepcid] 20 mg PO Q12H #60 tablet 05/15/19 Unknown Rx Ferrous Sulfate [Ferrous Sulfate 324 mg PO DAILY #60 tablet. 05/15/19 Unknown Rx 324 MG] Ondansetron [Zofran Odt] 4 mg PO Q6HR PRN #20 tab.rapdis 05/15/19 Unknown Rx ED Physical Exam - General Limitations: No Limitations General appearance: alert, in no apparent distress - Head Head exam: Present: atraumatic, normocephalic, normal inspection - Eye Eye exam: Present: normal appearance, PERRL, EOMI Pupils: Present: normal accommodation - ENT ENT exam: Present: normal exam, normal orophraynx, mucous membranes moist, TM's normal bilaterally, normal external ear exam - Neck Neck exam: Present: normal inspection, full ROM. Absent: tenderness, lymphadenopathy - Respiratory Respiratory exam: Present: normal lung sounds bilaterally. Absent: respiratory distress, wheezes, rales, chest wall tenderness, decreased breath sounds - Cardiovascular Cardiovascular Exam: Present: normal rhythm, tachycardia. Absent: systolic murmur, diastolic murmur, rubs, gallop - GI/Abdominal GI/Abdominal exam: Present: soft, tenderness (Palpable diffuse upper abdominal tenderness), normal bowel sounds. Absent: guarding, rebound, rigid, hyperactive bowel sounds, hypoactive bowel sounds, organomegaly - Extremities Exam Extremities exam: Present: normal inspection, full ROM, normal capillary refill - Back Exam Back exam: Present: normal inspection, full ROM. Absent: CVA tenderness (L), muscle spasm, paraspinal tenderness, vertebral tenderness - Neurological Exam Neurological exam: Present: alert, oriented X3, CN II-XII intact, normal gait, reflexes normal - Psychiatric Psychiatric exam: Present: normal affect, normal mood - Skin Skin exam: Present: warm, dry, intact, normal color. Absent: rash ED Course Vital Signs 05/14/19 05/15/19 05/15/19 18:17 00:05 00:41 Temperature 98.3 F 98.2 F Pulse Rate 112 H 111 H Respiratory 16 18 18 Rate Blood Pressure 126/76 141/79 [Left] O2 Sat by Pulse 100 98 Oximetry 05/15/19 03:37 Temperature 98.1 F Pulse Rate 100 H Respiratory 16 Rate Blood Pressure 145/76 [Left] O2 Sat by Pulse 97 Oximetry ED Medical Decision Making - Lab Data Result diagrams: 05/14/19 18:29 05/14/19 18:29 - EKG Data EKG shows normal: sinus rhythm Rate: tachycardia - EKG Data Interpretation: normal EKG 05/15/19 00:13 EKG shows sinus tachycardia with a ventricular rate of [address] or T wave abnormalities. - Radiology Data Radiology results: report reviewed, image reviewed Findings [facility] [address] [place] [address] Ultrasound Report Signed Patient: JELENA FRAUSTO MR#: [id number] : 1965 Acct:[id number] Age/Sex: 53 / F ADM Date: 05/14/19 Loc: ED Attending Dr: Ordering Physician: GLORIA RICHMOND Date of Service: 05/14/19 Procedure(s): US abdomen limited Accession Number(s): [id number] cc: GLORIA RICHMOND LIMITED RUQ ABDOMINAL ULTRASOUND INDICATION: Epigastric pain radiating to LUQ and RUQ areas. COMPARISON: CT abdomen/pelvis from 10/23/2018. FINDINGS: Pancreas: Visualized portions show no significant abnormality. Abdominal Aorta: Mid aorta not well seen. Remainder of the aorta is unremarkable. IVC: No significant abnormality. Liver: The liver measures 14.9 cm in length. Diffusely echogenic. Normal hepatopedal blood flow in the main portal vein. Gallbladder: Gallbladder sludge with no wall thickening. Bile ducts: No significant abnormality. Common bile duct measures 7 mm. Right kidney: No significant abnormality visualized.. Free fluid: None. Additional Findings: None. IMPRESSION: 1. Diffusely echogenic liver, most commonly seen with steatosis. 2. Gallbladder sludge. Signer Name: Gerard Meza MD Signed: 05/14/2019 9:09 PM Workstation Name: [id number] Transcribed By: NORMA Dictated By: Gerard Meza MD Electronically Authenticated By: Gerard Meza MD Signed Date/Time: 05/14/192108 DD/ 07 TD/TT: - Medical Decision Making This is a 53-year-old female with a history of peptic ulcer disease who presented to the ED with complaint of epigastric pain that radiates to the right upper quadrant and left upper quadrant with nausea for the last 1 week. In the ED, patient is alert and oriented x3 and is not in distress but tachycardic and afebrile in triage. EKG shows sinus tachycardia with a ventricular rate of [address] or T wave abnormalities. Gallbladder ultrasound shows diffusely echogenic liver, most commonly seen with steatosis, and gallbladder sludge with no gallbladder wall thickness or gallstones. Patient was treated for pain with Bentyl and also given antacids, antiemetics and GI cocktail. Lab test results were reviewed and showed normal urinalysis but H&H of 8.5 and 25.7 respectively which is significantly improved from over 1 week ago when she had blood transfusion and at that time the H&H worse, 4.5 and 13.7. AST was 93 and also acute hypokalemia of 3.3 mmol/L. Rest of the lab test results were unremarkable. On reevaluation, patient's pain is well controlled with medications. Patient's pain is likely due to the peptic ulcer disease and given the fact that the patient has not taken any medications since she was diagnosed, the patient's pain is bound to have worsened as she continues to recuperate at home. Patient was discharged home on antacids Pepcid 20 mg twice a day, antiemetics and pain medication Bentyl 20 mg every 6 hours. Patient was advised to follow-up with the GI physician as was previously scheduled for follow-up. Patient was otherwise advised to return to the ED immediately if symptoms get worse. - Differential Diagnosis GERD; Gastritis; PUD; cholelithiasis; CAD; UTI; Pancreatitis Critical care attestation.: If time is entered above; I have spent that time in minutes in the direct care of this critically ill patient, excluding procedure time. ED Disposition Clinical Impression: Abdominal pain in female, Recurrent peptic ulcer disease Acute gastritis without bleeding Qualifiers: Gastritis type: other gastritis Qualified Code(s): K29.00 - Acute gastritis without bleeding Disposition: DC- TO HOME OR SELFCARE Is pt being admited?: No Does the pt Need Aspirin: No Condition: Stable Instructions: Abdominal Pain (ED) Additional Instructions: Your symptoms are due to your recurrent peptic ulcer disease due to previous use of NSAIDs. Take medication with food, drink plenty of fluids and follow-up with your primary care physician or GI physician as previously scheduled. Return to the ED immediately if symptoms get worse. Prescriptions: Dicyclomine [Bentyl] 20 mg PO Q6H PRN #30 tablet PRN Reason: Pain , Severe (7-10) Ferrous Sulfate [Ferrous Sulfate 324 MG] 324 mg PO DAILY #60 tablet. Famotidine [Pepcid] 20 mg PO Q12H #60 tablet Ondansetron [Zofran Odt] 4 mg PO Q6HR PRN #20 tab.rapdis PRN Reason: Nausea Referrals: LUCIE KC MD [Staff Physician] - 3-5 Days MAXINE PORTER MD [Staff Physician] - 7-10 days Time of Disposition: 00:19 Print Language: KAZAKH
--- NOTE | 2019-05-14 21:14 | Ultrasound Report ---
LIMITED RUQ ABDOMINAL ULTRASOUND INDICATION: Epigastric pain radiating to LUQ and RUQ areas. COMPARISON: CT abdomen/pelvis from 10/23/2018. FINDINGS: Pancreas: Visualized portions show no significant abnormality. Abdominal Aorta: Mid aorta not well seen. Remainder of the aorta is unremarkable. IVC: No significant abnormality. Liver: The liver measures 14.9 cm in length. Diffusely echogenic. Normal hepatopedal blood flow in t he main portal vein. Gallbladder: Gallbladder sludge with no wall thickening. Bile ducts: No significant abnormality. Common bile duct measures 7 mm. Right kidney: No significant abnormality visualized.. Free fluid: None. Additional Findings: None. IMPRESSION: 1. Diffusely echogenic liver, most commonly seen with steatosis. 2. Gallbladder sludge. Signer Name: Gerard Meza MD Signed: 05/14/2019 9:09 PM Workstation Name: [id number]
[2019-05-14 23:16] LABS: Bacteria,Urine 1+ /HPF (Negative); Bilirubin,Urine NEG (Negative); Blood,Urine NEG (Negative); Color,Urine Yellow (Yellow); Protein,Urine <15 mg/dL mg/dL (Negative); Urobilinogen,Urine < 2.0 mg/dL (<2.0)
[2019-05-15] MEDS ORDERED: MORPHINE 2 MG/1 ML INJ IV ONE (00:23)
[2019-05-15] MEDS ORDERED: ONDANSETRON 4 MG/2 ML INJ IV ONE (00:23)
[2019-05-15] MEDS ORDERED: SODIUM CHLORIDE 0.9% 1000 ML 1,000 ML IV ONE (00:23)
[2019-05-15 03:38] VITALS: BP 145/76
== END 2019-05-15 04:10 | disposition home or self-care (01) ==
LOC: ED 18:09
DX: K29.00 Acute gastritis without bleeding (principal); K30 Functional dyspepsia; R10.11 Right upper quadrant pain; I10 Essential (primary) hypertension; K21.9 Gastro-esophageal reflux disease without esophagitis; D64.9 Anemia, unspecified; Z88.0 Allergy status to penicillin; Z79.899 Other long term (current) drug therapy; Z98.890 Other specified postprocedural states
CPT/HCPCS: 36415; 76705; 80053; 81001; 83690; 84484; 85025; 93005; 93010; 96374; 96375; 96376; 99284; J2270; J2405; J7030

== ENCOUNTER 2019-05-22 11:49 | Emergency (ER) | payer SELFPAY ==
[2019-05-22] MEDS ORDERED: MORPHINE 4 MG/1 ML INJ IV ONE (12:16)
[2019-05-22] MEDS ORDERED: ONDANSETRON 4 MG/2 ML INJ IV ONE (12:16)
--- NOTE | 2019-05-22 12:20 | Emergency Department Report ---
ED Abdominal Pain HPI - General Chief Complaint: Abdominal Pain Stated Complaint: ABD PAIN Time Seen by Provider: 05/22/19 12:16 Source: patient Mode of arrival: Ambulatory Limitations: No Limitations - History of Present Illness Initial Comments: Mrs. Mccullough is a 53-year-old female with history of esophagitis duodenitis GERD upper GI bleed anemia who presents with severe epigastric pain radiating to the back. Pain has persisted since being admitted several weeks ago. I evaluated this patient for severe anemia. She feels generally weak. Pain has been intermittent for the past several weeks. Sharp 10 out of 10 pain worse today. Positive nausea. In April, patient was admitted with hemoglobin 4.5. Transfused 3 units packed red blood cells. EGD revealed duodenal ulcer, severe ulcerative esophagitis. MD Complaint: abdominal pain -: Gradual, week(s) (2) Location: epigastric Radiation: back Severity: severe Severity scale (0 -10): 10 Quality: sharp Consistency: constant Worsens With: nothing Associated Symptoms: nausea - Related Data Home Medications Medication Instructions Recorded Confirmed Last Taken Acetaminophen [Tylenol] 325 mg PO Q48HR PRN 05/22/19 05/22/19 Unknown Previous Rx's Medication Instructions Recorded Last Taken Type Famotidine [Pepcid] 20 mg PO Q12H #60 tablet 05/15/19 Unknown Rx Famotidine [Pepcid] 20 mg PO BID 30 Days #60 tablet 05/22/19 Unknown Rx Allergies Allergy/AdvReac Type Severity Reaction Status Date / Time Penicillins Allergy Swelling Verified 12/28/13 17:26 ED Review of Systems ROS: Stated complaint: ABD PAIN Other details as noted in HPI Comment: All other systems reviewed and negative Constitutional: denies: fever, malaise Respiratory: denies: cough Cardiovascular: denies: chest pain Gastrointestinal: abdominal pain, nausea ED Past Medical Hx - Past Medical History Previous Medical History?: Yes Hx Hypertension: Yes Hx Heart Attack/AMI: No Hx Congestive Heart Failure: No Hx Diabetes: No Hx GERD: Yes Hx Liver Disease: No Hx Renal Disease: No Hx Seizures: No Hx Asthma: No Hx COPD: No Additional medical history: anemia. Bleeding ulcer - Surgical History Past Surgical History?: Yes Additional Surgical History: Endoscopy for bleeding ulcer 5 years ago. endoscopy 03/01/2018 - Social History Smoking Status: Never Smoker Substance Use Type: None - Medications Home Medications: Home Medications Medication Instructions Recorded Confirmed Last Taken Type Famotidine [Pepcid] 20 mg PO Q12H #60 tablet 05/15/19 Unknown Rx Acetaminophen [Tylenol] 325 mg PO Q48HR PRN 05/22/19 05/22/19 Unknown History Famotidine [Pepcid] 20 mg PO BID 30 Days #60 tablet 05/22/19 Unknown Rx ED Physical Exam - General Limitations: No Limitations General appearance: alert, in no apparent distress, other (Appears in pain appears pale appears upset) - Head Head exam: Present: atraumatic, normocephalic - Eye Eye exam: Present: normal appearance - ENT ENT exam: Present: mucous membranes moist - Neck Neck exam: Present: normal inspection, full ROM - Respiratory Respiratory exam: Present: normal lung sounds bilaterally. Absent: respiratory distress, wheezes, rhonchi, stridor - Cardiovascular Cardiovascular Exam: Present: regular rate, normal rhythm, normal heart sounds. Absent: systolic murmur, diastolic murmur, rubs, gallop - GI/Abdominal GI/Abdominal exam: Present: soft, normal bowel sounds. Absent: tenderness, guarding, rebound - Extremities Exam Extremities exam: Present: normal inspection - Neurological Exam Neurological exam: Present: alert, oriented X3 - Psychiatric Psychiatric exam: Present: normal affect, normal mood - Skin Skin exam: Present: warm, dry, intact, normal color. Absent: rash ED Course Vital Signs 05/22/19 05/22/19 05/22/19 11:56 12:20 12:31 Temperature 98.4 F Pulse Rate 121 H 108 H 107 H Respiratory 22 12 21 Rate Blood Pressure 109/68 116/71 O2 Sat by Pulse 98 100 100 Oximetry 05/22/19 05/22/19 05/22/19 12:38 12:45 13:00 Temperature Pulse Rate 109 H 98 H Respiratory 18 12 21 Rate Blood Pressure 107/59 107/58 O2 Sat by Pulse 100 99 Oximetry 05/22/19 13:08 Temperature Pulse Rate Respiratory 18 Rate Blood Pressure O2 Sat by Pulse 99 Oximetry ED Medical Decision Making - Lab Data Result diagrams: 05/22/19 12:29 05/22/19 12:29 - Radiology Data Radiology results: report reviewed CT abdomen pelvis with contrast revealed left nephrolithiasis without ureteral stone inflammatory process, normal appendix, no uterine adnexal masses - Medical Decision Making 1. Epigastric pain: Pain is been present since discharge from the hospital over 2 weeks ago. She explained that she was unable to afford the medicine to treat her peptic ulcer disease. She also admits that her diet may be contributing to the pain. H&H within normal limits. CT abdomen pelvis does not reveal any acute inflammatory changes. I have prescribed famotidine. Also provided verbal written diet instructions. 2. Positive hCG will need outpatient [employer]UT RO[employer]PER follow-up. Critical care attestation.: If time is entered above; I have spent that time in minutes in the direct care of this critically ill patient, excluding procedure time. ED Disposition Clinical Impression: Peptic ulcer disease, Acute abdominal pain, Ulcerative esophagitis, Erosive esophagitis, Duodenal ulcer, Anemia, Recurrent peptic ulcer disease Disposition: TO HOME OR SELFCARE Is pt being admited?: No Does the pt Need Aspirin: No Condition: Stable Instructions: Diet for Ulcers and Gastritis (ED) Additional Instructions: It is strongly recommended that you follow-up with a art therapy specialist. Your hCG level is elevated. Prescriptions: Famotidine [Pepcid] 20 mg PO BID 30 Days #60 tablet Referrals: MONTSE HOWELL MD [Staff Physician] - 3-5 Days
[2019-05-22 12:55] LABS: Basophils # (Auto) 0.1 K/mm3 (0.0-0.1); Basophils % (Auto) 0.8 % (0.0-1.8); Eosinophils # (Auto) 0.2 K/mm3 (0.0-0.4); Eosinophils % (Auto) 3.3 % (0.0-4.3); Hematocrit 23.9 % (30.3-42.9); Hemoglobin 7.7 gm/dl (10.1-14.3); Lymphocytes % (Auto) 14.9 % (13.4-35.0); Mean Corpuscular HGB Conc 32 % (30-34); Mean Corpuscular Volume 93 fl (79-97); Monocytes # (Auto) 0.7 K/mm3 (0.0-0.8); Monocytes % (Auto) 10.2 % (0.0-7.3); Platelet Count 434 K/mm3 (140-440); Red Blood Count 2.58 M/mm3 (3.65-5.03); Red Cell Distribution Width 19.5 % (13.2-15.2)
[2019-05-22 13:12] LABS: Alanine Aminotransferase 17 units/L (7-56); Albumin 3.8 g/dL (3.9-5); BUN/Creatinine Ratio 23; Blood Urea Nitrogen 16 mg/dL (7-17); Hemolysis Index 4
[2019-05-22 13:34] LABS: Bilirubin,Urine NEG (Negative); Blood,Urine NEG (Negative); Color,Urine Yellow (Yellow); Protein,Urine <15 mg/dL mg/dL (Negative); Urobilinogen,Urine < 2.0 mg/dL (<2.0)
--- NOTE | 2019-05-22 14:15 | Cat Scan Report ---
CT of the abdomen and pelvis with contrast INDICATION: Abdominal pain x4 days COMPARISON: 10/23/2018 FINDINGS: Lung bases are clear. The liver, spleen, pancreas, adrenal glands and right kidney show no significant abnormalities with a 1 cm right renal low density probably a cyst. The left kidney contai ns 2 6 mm stones in the midpole which are nonobstructing. Gallbladder is distended but no wall thicke osvaldo or evidence of cholecystitis. No fluid or adenopathy in the upper abdomen. CT of the pelvis shows a normal appendix. No uterine or adnexal masses. No pelvic fluid or adenopathy . No hernia or bowel obstruction. No significant skeletal lesion. No distal ureteral stones are seen. No stone fragments seen in the bladder. IMPRESSION: Left nephrolithiasis but no ureteral stone or inflammatory process seen. Automated exposure control was utilized to diminish radiation dose. Signer Name: Rustam Brenner MD Signed: 05/22/2019 2:11 PM Workstation Name: [email or web address]
[2019-05-22] MEDS ORDERED: ALUM-MAG HYDROXIDE-SIMETHICONE 200-200-20MG/5ML ORAL LIQD 30 ML PO ONE (14:31)
[2019-05-22] MEDS ORDERED: HYDROcodone/ACETAMINOPHEN 5-325 MG TAB PO ONE (14:31)
[2019-05-22 15:17] VITALS: BP 123/71
== END 2019-05-22 15:18 | disposition home or self-care (01) ==
LOC: ED 11:49
DX: K27.9 Peptic ulcer, site unspecified, unspecified as acute or chronic, without hemorrhage or perforation (principal); K22.10 Ulcer of esophagus without bleeding; R10.9 Unspecified abdominal pain; D64.9 Anemia, unspecified; I10 Essential (primary) hypertension; K21.9 Gastro-esophageal reflux disease without esophagitis; Z88.0 Allergy status to penicillin; Z79.899 Other long term (current) drug therapy; Z98.890 Other specified postprocedural states
CPT/HCPCS: 36415; 74177; 80053; 81001; 83690; 84702; 85025; 96374; 96375; 99284; J2270; J2405; Q9967

== ENCOUNTER 2020-05-21 01:33 | Emergency (ER) | payer SELFPAY ==
[2020-05-21 03:34] VITALS: BP 120/84
[2020-05-21] MEDS ORDERED: predniSONE 50 MG TAB PO ONE (03:34)
[2020-05-21] MEDS ORDERED: SODIUM CHLORIDE 0.9% 1000 ML 1,000 ML IV ONE (03:35)
[2020-05-21] MEDS ORDERED: ACETAMINOPHEN 500 MG TAB PO ONE (03:35)
[2020-05-21] MEDS ORDERED: CYCLOBENZAPRINE 10 MG TAB PO ONE (03:36)
[2020-05-21] MEDS ORDERED: ONDANSETRON 4 MG ODT TAB PO ONE (03:40)
--- NOTE | 2020-05-21 04:06 | Event Note ---
ED Screening Note Date of service: 05/21/20 Time: 03:40 ED Screening Note: Patient is a 54-year-old female with a history of chronic lumbar disc disease due to chronic osteoarthritis and kyphosis, history of chronic hypokalemia and anxiety with depression who presents to the ED with complaint of persistent mid posterior thoracic pain that radiates to her anterior chest wall for the last 1 week, worse in the last 2 days. Patient states that she has not been able to sleep because of worsening pain in the chest and also in the mid posterior thoracic area. Patient states that the pain is spasmic between her shoulder blade and is also characterized by the intractable nausea and vomiting, cough and shortness of breath. Patient states that she was recently about 2 weeks ago evaluated extensively at [facility] and was admitted for acute on chronic hypokalemia and worsening osteoarthritis of her mid posterior thoracic spine. Patient denies fall, traumatic injury, heavy lifting, abdominal pain, fever, chills, sore throat, neck pain, headache, numbness and tingling or weakness of upper and lower extremities bilaterally. This initial assessment/diagnostic orders/clinical plan/treatment(s) is/are subject to change based on patients health status, clinical progression and re- assessment by fellow clinical providers in the ED. Further treatment and workup at subsequent clinical providers discretion. Patient/guardian urged not to elope from the ED as their condition may be serious if not clinically assessed and managed. Initial orders include: CBC, CMP, EKG, troponin, two-view chest x-ray
--- NOTE | 2020-05-21 04:09 | XRay Report ---
CHEST 1 VIEW INDICATION: CHEST PAIN - MID POSTERIOR THORACIC PAIN. COMPARISON: 12/06/2018 FINDINGS: Support devices: None. Heart: Normal. Lungs/Pleura: No acute pulmonary or pleural findings. IMPRESSION: 1. No acute findings. Signer Name: Phil Brewer MD Signed: 05/21/2020 4:05 AM Workstation Name: [id number]
[2020-05-21 04:31] LABS: Basophils % (Auto) 0.3 % (0.0-1.8); Eosinophils % (Auto) 0.3 % (0.0-4.3); Hematocrit 37.1 % (30.3-42.9); Lymphocytes # (Auto) 1.7 K/mm3 (1.2-5.4); Lymphocytes % (Auto) 15.4 % (13.4-35.0); Mean Corpuscular HGB Conc 32 % (30-34); Mean Corpuscular Volume 112 fl (79-97); Monocytes # (Auto) 1.1 K/mm3 (0.0-0.8); Monocytes % (Auto) 9.7 % (0.0-7.3); Platelet Count 563 K/mm3 (140-440); Red Blood Count 3.32 M/mm3 (3.65-5.03); Red Cell Distribution Width 17.3 % (13.2-15.2)
[2020-05-21 04:38] LABS: Alanine Aminotransferase 39 units/L (7-56); Albumin 4.3 g/dL (3.9-5); Blood Urea Nitrogen 5 mg/dL (7-17); Calcium 9.2 mg/dL (8.4-10.2); Hemolysis Index 2
[2020-05-21 04:55] LABS: BUN/Creatinine Ratio 8
--- NOTE | 2020-05-21 17:36 | Electrocardiograph Report ---
[facility] Test Date: 2020-05-21 Test Time: 04:36:08 Pat Name: JELENA FRAUSTO Department: Room: Gender: F Stripper Preliminary: GUMARO : 1965 Requested By: VERENICE ROMERO Order Number: [id number] Reading MD: Marie Murdock Measurements Intervals [place] Rate: 109 P: 51 NM: 117 QRS: 66 QRSD: 66 T: 41 QT: 333 QTc: 448 Interpretive Statements Sinus tachycardia No previous ECG available for comparison Electronically Signed On 05-21-2020 17:36:10 EDT by Marie Murdock
== END 2020-05-21 19:00 | disposition left against medical advice (07) ==
LOC: ED 01:33
DX: M54.9 Dorsalgia, unspecified (principal); Z53.21 Procedure and treatment not carried out due to patient leaving prior to being seen by health care provider
CPT/HCPCS: 36415; 71045; 80053; 85025; 93005; J7512

== ENCOUNTER 2020-07-31 01:30 | Emergency (ER) | payer SELFPAY ==
[2020-07-31 01:58] VITALS: BP 114/71
[2020-07-31 02:34] LABS: Hematocrit 28.2 % (30.3-42.9); Hemoglobin 9.7 gm/dl (10.1-14.3); Mean Corpuscular HGB Conc 34 % (30-34); Mean Corpuscular Volume 101 fl (79-97); Platelet Count 102 K/mm3 (140-440); Red Blood Count 2.79 M/mm3 (3.65-5.03)
[2020-07-31 02:35] LABS: Red Cell Distribution Width 20.8 % (13.2-15.2)
--- NOTE | 2020-07-31 02:45 | XRay Report ---
ABDOMEN 1 VIEW 07/31/2020 1:34 AM INDICATION / CLINICAL INFORMATION: abd pain. COMPARISON: None available. FINDINGS: TUBES / LINES: None. BOWEL GAS PATTERN: No significant abnormality. FREE AIR / EXTRALUMINAL GAS: None. ADDITIONAL FINDINGS: No significant additional findings. IMPRESSION: 1. No significant abnormality. Signer Name: Miguel Smith MD Signed: 07/31/2020 2:41 AM Workstation Name: [email or web address]
[2020-07-31 02:49] LABS: Alanine Aminotransferase 15 units/L (7-56); Albumin 2.6 g/dL (3.9-5); Blood Urea Nitrogen 5 mg/dL (7-17); Calcium 7.6 mg/dL (8.4-10.2); Hemolysis Index 8
[2020-07-31 02:50] LABS: BUN/Creatinine Ratio 13
[2020-07-31 03:46] LABS: Total Cells Counted 100
[2020-07-31 03:48] LABS: Anisocytosis 1+; Poikilocytosis 1+
[2020-07-31 03:49] LABS: Ovalocytes Few; Platelet Estimate Consistent w Auto; Schistocytes Few; Tear Drop Cells Few
== END 2020-07-31 02:00 | disposition left against medical advice (07) ==
LOC: ED 01:30
DX: R10.9 Unspecified abdominal pain (principal); Z53.21 Procedure and treatment not carried out due to patient leaving prior to being seen by health care provider
CPT/HCPCS: 36415; 74018; 80053; 85007; 85025

== ENCOUNTER 2020-07-31 12:56 | Emergency (ER) | payer SELFPAY ==
[2020-07-31] MEDS ORDERED: MORPHINE 4 MG/1 ML INJ IV ONE ×2 (14:23→19:03)
[2020-07-31] MEDS ORDERED: ONDANSETRON 4 MG/2 ML INJ IV ONE (14:23)
--- NOTE | 2020-07-31 14:38 | Emergency Department Report ---
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 Patient stated that she was diagnosed with liver failure 2 months ago. Patient presented to the ER complaining of diffuse abdominal pain, generalized weakness and dizziness for the last few days. Patient denied any fever or chills. She also denied any nausea or vomiting. No diarrhea. Patient denied any hematemesis, hematochezia or melena. MD Complaint: abdominal pain -: days(s) Location: diffuse Severity scale (0 -10): 10 Quality: fullness - Related Data Home Medications Medication Instructions Recorded Confirmed Last Taken Acetaminophen [Tylenol] 325 mg PO Q48HR PRN 05/22/19 05/22/19 Unknown Previous Rx's Medication Instructions Recorded Last Taken Type Famotidine [Pepcid] 20 mg PO Q12H #60 tablet 05/15/19 Unknown Rx Famotidine [Pepcid] 20 mg PO BID 30 Days #60 tablet 05/22/19 Unknown Rx Allergies Allergy/AdvReac Type Severity Reaction Status Date / Time Penicillins Allergy Swelling Verified 12/28/13 17:26 ED Review of Systems ROS: Stated complaint: ABD PAIN, LIVER FAILURE Other details as noted in HPI Comment: All other systems reviewed and negative Constitutional: denies: chills, fever Respiratory: denies: cough, shortness of breath, SOB with exertion Cardiovascular: denies: chest pain Gastrointestinal: abdominal pain Neurological: weakness ED Past Medical Hx - Past Medical History Previous Medical History?: Yes Hx Hypertension: Yes Hx Heart Attack/AMI: No Hx Congestive Heart Failure: No Hx Diabetes: No Hx GERD: Yes Hx Liver Disease: Yes (liver failure) Hx Renal Disease: No Hx Arthritis: Yes (in back) Hx Seizures: No Hx Asthma: No Hx COPD: No Additional medical history: anemia. Bleeding ulcer. k+ deficiency - Surgical History Past Surgical History?: Yes Additional Surgical History: Endoscopy for bleeding ulcer 5 years ago. endoscopy 03/01/2018. j-tube placement 05/2020 - Social History Smoking Status: Never Smoker Substance Use Type: None - Medications Home Medications: Home Medications Medication Instructions Recorded Confirmed Last Taken Type Famotidine [Pepcid] 20 mg PO Q12H #60 tablet 05/15/19 Unknown Rx Acetaminophen [Tylenol] 325 mg PO Q48HR PRN 05/22/19 05/22/19 Unknown History Famotidine [Pepcid] 20 mg PO BID 30 Days #60 tablet 05/22/19 Unknown Rx ED Physical Exam - General Limitations: No Limitations General appearance: alert, in no apparent distress - Eye Eye exam: Present: scleral icterus - ENT ENT exam: Present: normal exam, normal orophraynx, mucous membranes moist - Neck Neck exam: Present: normal inspection, full ROM. Absent: tenderness, meningismus - Respiratory Respiratory exam: Present: normal lung sounds bilaterally - Cardiovascular Cardiovascular Exam: Present: regular rate, normal rhythm, normal heart sounds - GI/Abdominal GI/Abdominal exam: Present: soft, distended, normal bowel sounds. Absent: tenderness, guarding, rebound, rigid, organomegaly, mass, bruit, pulsatile mass, hernia - Extremities Exam Extremities exam: Present: normal inspection, full ROM, normal capillary refill. Absent: tenderness - Back Exam Back exam: Present: normal inspection, full ROM. Absent: CVA tenderness (R), CVA tenderness (L) - Neurological Exam Neurological exam: Present: alert, oriented X3, CN II-XII intact. 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 Patient stated that she was diagnosed with liver failure 2 months ago. Patient presented to the ER complaining of diffuse abdominal pain, generalized weakness and dizziness for the last few days. Patient denied any fever or chills. She also denied any nausea or vomiting. No diarrhea. Patient denied any hematemesis, hematochezia or melena. Patient received morphine and Zofran. Labs reviewed and is unremarkable except for chronic elevation of her hepatic profile. No changes from previous labs and is even getting better. Patient stated that she is feeling much better. Patient advised to follow-up with her GI doctor in the next 2 to 3 days and to return to the ER if she develop any new symptoms. Critical care attestation.: If time is entered above; I have spent that time in minutes in the direct care of this critically ill patient, excluding procedure time. ED Disposition Clinical Impression: Acute abdominal pain, Liver failure Disposition: TO HOME OR SELFCARE Is pt being admited?: No Condition: Stable Instructions: Abdominal Pain (ED), Abdominal Pain, Adult, [id number], Liver Failure Referrals: [facility] [Provider Group] - 3-5 Days
[2020-07-31 16:04] LABS: Alanine Aminotransferase 13 units/L (7-56); Albumin 2.5 g/dL (3.9-5); Bilirubin,Direct 2.8 mg/dL (0-0.2); Blood Urea Nitrogen 6 mg/dL (7-17); Calcium 7.8 mg/dL (8.4-10.2); Hemolysis Index 21
[2020-07-31 16:05] LABS: BUN/Creatinine Ratio 20
[2020-07-31 17:10] LABS: Hematocrit 28.1 % (30.3-42.9); Hemoglobin 9.5 gm/dl (10.1-14.3); Mean Corpuscular HGB Conc 34 % (30-34); Mean Corpuscular Volume 101 fl (79-97); Red Blood Count 2.78 M/mm3 (3.65-5.03)
[2020-07-31 17:12] LABS: Platelet Count 82 K/mm3 (140-440); Red Cell Distribution Width 20.5 % (13.2-15.2)
[2020-07-31 17:26] LABS: Anisocytosis 1+; Hypochromasia 1+; Total Cells Counted 100
[2020-07-31 17:27] LABS: Schistocytes Few
[2020-07-31 17:30] LABS: Dimorphic RBC Yes; Ovalocytes Few; Platelet Clumps Rare; Tear Drop Cells Few
[2020-07-31 18:08] LABS: Bilirubin,Urine NEG (Negative); Blood,Urine MOD (Negative); Color,Urine Yellow (Yellow); Mucus,Urine FEW /HPF; Protein,Urine <15 mg/dL mg/dL (Negative); Urobilinogen,Urine < 2.0 mg/dL (<2.0)
[2020-07-31 19:55] VITALS: BP 114/68
== END 2020-07-31 19:40 | disposition home or self-care (01) ==
LOC: ED 12:56
DX: K72.90 Hepatic failure, unspecified without coma (principal); I10 Essential (primary) hypertension; K21.9 Gastro-esophageal reflux disease without esophagitis; M19.90 Unspecified osteoarthritis, unspecified site; Z88.0 Allergy status to penicillin; Z79.899 Other long term (current) drug therapy; Z98.890 Other specified postprocedural states
CPT/HCPCS: 36415; 80048; 80076; 81001; 82140; 83690; 85007; 85025; 96374; 96375; 96376; 99283; J2270; J2405

== ENCOUNTER 2020-08-01 23:43 | Emergency (ER) | payer SELFPAY ==
[2020-08-02 04:01] LABS: Mucus,Urine 3+ /HPF
[2020-08-02] MEDS ORDERED: ONDANSETRON 4 MG/2 ML INJ IV ONE (04:01)
[2020-08-02] MEDS ORDERED: SODIUM CHLORIDE 0.9% 1000 ML 1,000 ML IV ONE (04:01)
[2020-08-02] MEDS ORDERED: FAMOTIDINE 20 MG/2 ML INJ IV ONE (04:01)
[2020-08-02] MEDS ORDERED: MORPHINE 4 MG/1 ML INJ IV ONE (04:01)
[2020-08-02 04:05] LABS: Color,Urine Dark Yellow (Yellow)
[2020-08-02 04:08] LABS: Blood,Urine Moderate (Negative)
[2020-08-02 04:42] LABS: Hematocrit 29.1 % (30.3-42.9); Hemoglobin 9.9 gm/dl (10.1-14.3); Mean Corpuscular HGB Conc 34 % (30-34); Mean Corpuscular Volume 101 fl (79-97); Platelet Count 102 K/mm3 (140-440); Red Blood Count 2.88 M/mm3 (3.65-5.03); Red Cell Distribution Width 19.9 % (13.2-15.2)
[2020-08-02 04:49] LABS: Alanine Aminotransferase 14 units/L (7-56); Albumin 2.6 g/dL (3.9-5); Blood Urea Nitrogen 9 mg/dL (7-17); Calcium 7.7 mg/dL (8.4-10.2); Hemolysis Index 0
[2020-08-02 04:53] LABS: BUN/Creatinine Ratio 23
[2020-08-02] MEDS ORDERED: POTASSIUM CHLORIDE ER 20 MEQ TAB PO ONE (05:00)
--- NOTE | 2020-08-02 05:06 | Emergency Department Report ---
ED Abdominal Pain HPI - General Chief Complaint: Abdominal Pain Stated Complaint: ABD PAIN PUI?: No Source: patient Mode of arrival: Wheelchair Limitations: No Limitations - History of Present Illness Initial Comments: Patient is a 54-year-old female with a history of hypertension, chronic pain due to chronic osteoarthritis, GERD, chronic liver disease, peptic ulcer disease s/p surgery, chronic hypokalemia who presents to the ED with acute onset persistent severe abdominal pain in the periumbilical area that radiates to the epigastric area with nausea and diarrhea for the last 3 days. Patient states that the symptoms have worsened especially in the last 24 hours such that she is not able to drink anything because of worsening pain. Patient states that the pain appears to resemble the pain that she had when she had bleeding peptic ulcers and had to undergo surgery. Patient denies vomiting, hematemesis, hematochezia, fever, chills, chest pain, shortness of breath, dizziness, syncope, palpitations, headache, or constipation. MD Complaint: abdominal pain, other (nausea and diarrhea) -: Sudden, days(s) (3) Location: periumbilical, epigastric Radiation: epigastric Migration to: no migration Severity: severe Severity scale (0 -10): 7 Quality: cramping, aching, sharp Consistency: constant Improves With: nothing Worsens With: eating Context: recent surgery/procedure (peptic ulcer surgery in [place], [place] in May 2020) Associated Symptoms: denies other symptoms, nausea, diarrhea, anorexia. denies: vomiting, fever, chills, constipation, dysuria, hematemesis, hematochezia, melena, hematuria, syncope - Related Data Home Medications Medication Instructions Recorded Confirmed Last Taken Acetaminophen [Tylenol] 325 mg PO Q48HR PRN 05/22/19 05/22/19 Unknown Previous Rx's Medication Instructions Recorded Last Taken Type Famotidine [Pepcid] 20 mg PO Q12H #60 tablet 05/15/19 Unknown Rx Famotidine [Pepcid] 20 mg PO BID 30 Days #60 tablet 05/22/19 Unknown Rx Ketorolac [Toradol] 10 mg PO Q6H PRN #10 tablet 07/31/20 Unknown Rx Ondansetron [Zofran Odt] 4 mg PO Q8HR PRN #14 tab.rapdis 06/22/21 Unknown Rx Dicyclomine [Bentyl] 20 mg PO Q6H PRN #30 tablet 08/02/20 Unknown Rx Esomeprazole Magnesium [NexIUM] 40 mg PO QDAY #30 capsule. 08/02/20 Unknown Rx Famotidine [Pepcid] 20 mg PO BID #60 tablet 08/02/20 Unknown Rx Ondansetron [Zofran Odt] 4 mg PO Q6HR PRN #20 tab.rapdis 08/02/20 Unknown Rx Potassium Chloride [K-Dur] 20 meq PO BID #20 tab 08/02/20 Unknown Rx Allergies Allergy/AdvReac Type Severity Reaction Status Date / Time Penicillins Allergy Swelling Verified 12/28/13 17:26 ED Review of Systems ROS: Stated complaint: ABD PAIN Other details as noted in HPI Constitutional: denies: chills, fever Eyes: denies: eye pain, eye discharge, vision change ENT: denies: ear pain, throat pain Respiratory: denies: cough, shortness of breath, wheezing Cardiovascular: denies: chest pain, palpitations Endocrine: no symptoms reported Gastrointestinal: abdominal pain (Diffuse but worse in the periumbilical area), nausea, diarrhea. denies: vomiting Genitourinary: denies: urgency, dysuria, frequency, hematuria, discharge, abnormal menses, dyspareunia Musculoskeletal: denies: back pain, joint swelling, arthralgia Skin: denies: rash, lesions Neurological: denies: headache, weakness, paresthesias Psychiatric: denies: anxiety, depression Hematological/Lymphatic: denies: easy bleeding, easy bruising ED Past Medical Hx - Past Medical History Hx Hypertension: Yes Hx Heart Attack/AMI: No Hx Congestive Heart Failure: No Hx Diabetes: No Hx GERD: Yes Hx Liver Disease: Yes (liver failure) Hx Renal Disease: No Hx Arthritis: Yes (in back) Hx Seizures: No Hx Asthma: No Hx COPD: No Additional medical history: anemia. Bleeding ulcer. k+ deficiency - Surgical History Additional Surgical History: Endoscopy for bleeding ulcer 5 years ago. endoscopy 03/01/2018. j-tube placement 05/2020 - Social History Smoking Status: Never Smoker Substance Use Type: None - Medications Home Medications: Home Medications Medication Instructions Recorded Confirmed Last Taken Type Famotidine [Pepcid] 20 mg PO Q12H #60 tablet 05/15/19 Unknown Rx Acetaminophen [Tylenol] 325 mg PO Q48HR PRN 05/22/19 05/22/19 Unknown History Famotidine [Pepcid] 20 mg PO BID 30 Days #60 tablet 05/22/19 Unknown Rx Ketorolac [Toradol] 10 mg PO Q6H PRN #10 tablet 07/31/20 Unknown Rx Ondansetron [Zofran Odt] 4 mg PO Q8HR PRN #14 tab.rapdis 07/31/20 Unknown Rx Dicyclomine [Bentyl] 20 mg PO Q6H PRN #30 tablet 08/02/20 Unknown Rx Esomeprazole Magnesium [NexIUM] 40 mg PO QDAY #30 capsule.dr 08/02/20 Unknown Rx Famotidine [Pepcid] 20 mg PO BID #60 tablet 08/02/20 Unknown Rx Ondansetron [Zofran Odt] 4 mg PO Q6HR PRN #20 tab.rapdis 08/02/20 Unknown Rx Potassium Chloride [K-Dur] 20 meq PO BID #20 tab 08/02/20 Unknown Rx ED Physical Exam - General Limitations: No Limitations General appearance: alert, in no apparent distress, anxious - Head Head exam: Present: atraumatic, normocephalic, normal inspection - Eye Eye exam: Present: normal appearance, PERRL, EOMI. Absent: scleral icterus, conjunctival injection, periorbital swelling, periorbital tenderness Pupils: Present: normal accommodation - ENT ENT exam: Present: normal exam, normal orophraynx, mucous membranes moist, TM's normal bilaterally, normal external ear exam - Neck Neck exam: Present: normal inspection, full ROM. Absent: tenderness - Respiratory Respiratory exam: Present: normal lung sounds bilaterally. Absent: respiratory distress, rales, rhonchi, chest wall tenderness, accessory muscle use - Cardiovascular Cardiovascular Exam: Present: regular rate, normal rhythm, normal heart sounds. Absent: systolic murmur, diastolic murmur, rubs, gallop - GI/Abdominal GI/Abdominal exam: Present: soft, tenderness (Palpable diffuse periumbilical abdominal tenderness, also epigastric tenderness), normal bowel sounds, hyperactive bowel sounds. Absent: guarding, rebound - Extremities Exam Extremities exam: Present: normal inspection, full ROM, normal capillary refill. Absent: pedal edema, joint swelling, calf tenderness - Back Exam Back exam: Present: normal inspection, full ROM. Absent: tenderness, CVA tenderness (R), CVA tenderness (L), muscle spasm, paraspinal tenderness, verteb ral tenderness - Neurological Exam Neurological exam: Present: alert, oriented X3, CN II-XII intact, normal gait, reflexes normal - Psychiatric Psychiatric exam: Present: normal affect, normal mood, anxious. Absent: suici mac ideation - Skin Skin exam: Present: warm, dry, intact, normal color. Absent: rash ED Course Vital Signs 08/02/20 03:25 Temperature 98.0 F Pulse Rate 77 Respiratory 18 Rate Blood Pressure 135/70 O2 Sat by Pulse 100 Oximetry ED Medical Decision Making - Lab Data Result diagrams: 08/02/20 04:05 08/02/20 04:05 - Radiology Data Radiology results: report reviewed, image reviewed [address] [address] Cat Scan Report Signed Patient: JELENA FRAUSTO MR#: [id number] : 1965 Acct:[id number] Age/Sex: 54 / F ADM Date: 08/01/20 Loc: ED Attending Dr: Ordering Physician: GLORIA RICHMOND Date of Service: 08/02/20 Procedure(s): CT abdomen pelvis w con Accession Number(s): [id number] cc: GLORIA RICHMOND CT ABDOMEN AND PELVIS WITH CONTRAST HISTORY: Pt complains of midline abd pain with nausea and diarrhea x 3 day. COMPARISON: 02/03/2020 TECHNIQUE: CT images of the abdomen and pelvis were obtained following administration of intravenous contrast. All CT scans at this location are performed using CT dose reduction for ALARA by means of automated exposure control. CONTRAST: 100 ml of intravenous contrast administered. FINDINGS: Lungs/bones: Moderate size hiatal hernia. Lower lobe atelectasis Abdomen/pelvis: There is abdominal ascites which is developed since prior examination which is moderate to large amount. Ileostomy in the left lower abdomen. There may be some mild thickening of the bowel loops. Small right renal cyst. Pancreas appears normal. The liver is slightly heterogeneous in appearance. No bowel obstruction is identified. There may be some mild thickening throughout the colon which is fluid-filled pelvis may be secondary to abdominal ascites. Coronary artery disease. No dominant adenopathy IMPRESSION: 1. Postsurgical changes with ileostomy noted. There may be some mild thickening of the small bowel loops. There may also be some thickening of the colon loops throughout. This thickening is nonspecific and may be related to abdominal ascites which has developed since prior examination. Anasarca is also noted. 2. Hiatal hernia with lower lobe atelectasis and effusions. Signer Name: Miguel Smith MD Signed: 08/02/2020 6:42 AM Workstation Name: [id number] Transcribed By: OFELIA Dictated By: ERNIE SIMTH MD Electronically Authenticated By: ERNIE SMITH MD Signed Date/Time: 08/02/20641 DD/ 9 TD/TT: Print Cancel - Medical Decision Making This is a 54-year-old female with a history of hypertension, chronic pain due to chronic osteoarthritis, GERD, chronic liver disease, peptic ulcer disease s/p surgery, chronic hypokalemia who presents to the ED with acute onset persistent severe abdominal pain in the periumbilical area that radiates to the epigastric area with nausea and diarrhea for the last 3 days. Patient states that the symptoms have worsened especially in the last 24 hours such that she is not able to drink anything because of worsening pain. Patient states that the pain appears to resemble the pain that she had when she had bleeding peptic ulcers and had to undergo surgery. In the ED, patient is alert and oriented x3 and is not in any distress but appears to be in pain. Patient is hemodynamically stable. Patient was treated in the ED with pain medications, given antiemetics and antacids and normal saline 1 L IV bolus x1. On reevaluation, patient's pain is well controlled with medication. Lab test results were reviewed and showed mild hypokalemia 3.0 mmol/L. Rest of the lab test results are nonactionable. The abdomen pelvis CT scan with contrast was also initiated. The abdomen pelvis CT scan with contrast showed postsurgical changes with ileostomy noted. There may be some mild thickening of the small bowel loops. There may also be some thickening of the colon loops throughout. This thickening is nonspecific and may be related to abdominal ascites which has developed since prior examination. Anasarca is also noted. It also showed hiatal hernia with lower lobe atelectasis and effusions. On reevaluation, patient has not had any nausea or vomiting in the ED and that the pain has significantly improved. On reevaluation, patient's pain is well controlled medications. Patient has not had any nausea or vomiting while in the ED. Patient passed oral fluid challenge in the ED with no difficulties. Patient has an appointment with her GI physician in [facility] this morning. Patient was therefore discharged home on medications and advised to follow-up with her GI physician as previously scheduled and to return to the ED immediately if symptoms get worse. - Differential Diagnosis Pancreatitis; GERD; peptic ulcers; UTI; colitis; constipation Critical care attestation.: If time is entered above; I have spent that time in minutes in the direct care of this critically ill patient, excluding procedure time. ED Disposition Clinical Impression: Abdominal pain in female patient, Peptic ulcer disease GERD (gastroesophageal reflux disease) Qualifiers: Esophagitis presence: esophagitis presence not specified Qualified Code(s): K21.9 - Gastro-esophageal reflux disease without esophagitis Disposition: TO HOME OR SELFCARE Is pt being admited?: No Does the pt Need Aspirin: No Condition: Stable Instructions: Abdominal Pain, Adult, [id number], Abdominal Pain (ED) Additional Instructions: All lab test results were reviewed and all nonactionable except for mild hypokalemia which is chronic. The abdomen pelvis CT scan with contrast showed baseline postsurgical changes consistent with your recent surgery. There is no acute findings. Therefore follow-up with the GI physician as previously scheduled at the [facility] this morning. Follow-up with your primary care physician in 5 to 7 days for reevaluation. Return to the ED immediately if symptoms get worse. Prescriptions: Dicyclomine [Bentyl] 20 mg PO Q6H PRN #30 tablet PRN Reason: abdominal pain Potassium Chloride [K-Dur] 20 meq PO BID #20 tab Esomeprazole Magnesium [NexIUM] 40 mg PO QDAY #30 capsule. Famotidine [Pepcid] 20 mg PO BID #60 tablet Ondansetron [Zofran Odt] 4 mg PO Q6HR PRN #20 tab.rapdis PRN Reason: Nausea Referrals: CHERI MAC MD [Staff Physician] - 3-5 Days [facility] [Provider Group] - 3-5 Days Time of Disposition: 07:04 Print Language: CROATIAN
[2020-08-02 06:35] LABS: Anisocytosis 1+; Total Cells Counted 100
[2020-08-02 06:36] LABS: Platelet Clumps Few; Poikilocytosis 1+; Schistocytes Few; Tear Drop Cells Few
[2020-08-02 06:37] LABS: Platelet Estimate Consistent w Auto
--- NOTE | 2020-08-02 06:46 | Cat Scan Report ---
CT ABDOMEN AND PELVIS WITH CONTRAST HISTORY: Pt complains of midline abd pain with nausea and diarrhea x 3 day. COMPARISON: 02/03/2020 TECHNIQUE: CT images of the abdomen and pelvis were obtained following administration of intravenous contrast. All CT scans at this location are performed using CT dose reduction for ALARA by means of automated exposure control. CONTRAST: 100 ml of intravenous contrast administered. FINDINGS: Lungs/bones: Moderate size hiatal hernia. Lower lobe atelectasis Abdomen/pelvis: There is abdominal ascites which is developed since prior examination which is moder ate to large amount. Ileostomy in the left lower abdomen. There may be some mild thickening of the dave wel loops. Small right renal cyst. Pancreas appears normal. The liver is slightly heterogeneous in ap pearance. No bowel obstruction is identified. There may be some mild thickening throughout the colon which is fluid-filled pelvis may be secondary to abdominal ascites. Coronary artery disease. No domin ant adenopathy IMPRESSION: 1. Postsurgical changes with ileostomy noted. There may be some mild thickening of the small bowel lo ops. There may also be some thickening of the colon loops throughout. This thickening is nonspecific and may be related to abdominal ascites which has developed since prior examination. Anasarca is also noted. 2. Hiatal hernia with lower lobe atelectasis and effusions. Signer Name: Miguel Smith MD Signed: 08/02/2020 6:42 AM Workstation Name: [id number]
[2020-08-02] MEDS ORDERED: DICYCLOMINE 20 MG/2 ML INJ IM ONE (07:12)
[2020-08-02 07:50] VITALS: BP 138/72
== END 2020-08-02 07:30 | disposition home or self-care (01) ==
LOC: ED 23:43
DX: K21.9 Gastro-esophageal reflux disease without esophagitis (principal); I10 Essential (primary) hypertension; M19.90 Unspecified osteoarthritis, unspecified site; Z98.890 Other specified postprocedural states; Z79.899 Other long term (current) drug therapy; Z88.0 Allergy status to penicillin
CPT/HCPCS: 36415; 74177; 80053; 81001; 83690; 84484; 85007; 85025; 87086; 96361; 96372; 96374; 96375; 99284; J0500; J2270; J2405; J7030; Q9967

== ENCOUNTER 2020-08-16 13:06 | Emergency (ER) | payer SELFPAY ==
--- NOTE | 2020-08-16 13:43 | Event Note ---
ED Screening Note ED Screening Note: Patient is a 54-year-old female presents emergency room with complaints of drainage from a J-tube Patient reports that she was in [facility] in April 2020 and reports that she had "3 holes in her esophagus and part of her right lung removed" She reports that she had the J-tube placed at that time and she states that it was supposed to remain in place for 6 months per patient She never followed up with a primary care doctor or general surgeon She states since yesterday it has had a foul odor drainage pt states she also has liver failure This initial assessment/diagnostic orders/clinical plan/treatment(s) is/are subject to change based on patients health status, clinical progression and re-assessment by fellow clinical providers in the ED. Further treatment and workup at subsequent clinical providers discretion. Patient/guardian urged not to elope from the ED as their condition may be serious if not clinically assessed and managed. Initial orders include: labs main ED
[2020-08-16 14:36] LABS: Hematocrit 33.6 % (30.3-42.9); Hemoglobin 11.6 gm/dl (10.1-14.3); Mean Corpuscular HGB Conc 35 % (30-34); Mean Corpuscular Volume 97 fl (79-97); Platelet Count 140 K/mm3 (140-440); Red Blood Count 3.47 M/mm3 (3.65-5.03); Red Cell Distribution Width 15.7 % (13.2-15.2)
[2020-08-16 14:45] LABS: INR 1.56 (0.87-1.13)
[2020-08-16 14:48] LABS: Alanine Aminotransferase 10 units/L (7-56); Albumin 3.1 g/dL (3.9-5); BUN/Creatinine Ratio 18; Blood Urea Nitrogen 7 mg/dL (7-17); Calcium 8.6 mg/dL (8.4-10.2); Hemolysis Index 5
[2020-08-16 14:49] LABS: Partial Thromboplastin Time 37.9 Sec. (24.2-36.6)
[2020-08-16] MEDS ORDERED: SODIUM CHLORIDE 0.9% 1000 ML 1,000 ML IV ONE (15:04)
[2020-08-16 15:18] LABS: Total Cells Counted 100
[2020-08-16 15:20] LABS: Schistocytes Few
[2020-08-16 15:21] LABS: Ovalocytes 1+; Platelet Estimate Consistent w Auto; Poikilocytosis 1+; Target Cells 1+
[2020-08-16 15:22] LABS: Tear Drop Cells 1+
[2020-08-16] MEDS ORDERED: KETOROLAC 30 MG/1 ML INJ IV ONE (17:16)
--- NOTE | 2020-08-16 18:43 | Cat Scan Report ---
CT ABDOMEN AND PELVIS WITH CONTRAST INDICATION / CLINICAL INFORMATION: dysfunctional J tube, 100ML OF OMNI 300 GIVEN . TECHNIQUE: Axial CT images were obtained through the abdomen and pelvis after IV contrast. All CT sc ans at this location are performed using CT dose reduction for ALARA by means of automated exposure c ontrol. COMPARISON: CT dated 08/02/20 FINDINGS: LOWER CHEST: Stable appearance of gastric pull-through with bilateral pleural effusions/pleural thick ening. LIVER: No significant abnormality. GALLBLADDER: Distended without acute abnormality. BILE DUCTS: No significant abnormality. PANCREAS: No significant abnormality. SPLEEN: Mildly enlarged but stable. ADRENALS: No significant abnormality. RIGHT KIDNEY / URETER: No significant abnormality. LEFT KIDNEY / URETER: Multiple nonobstructing intrarenal stones. No ureteral stone or hydronephrosis. STOMACH / SMALL BOWEL: Interval removal of left mid abdominal jejunostomy tube. Jejunostomy tract is still visible. Small bowel is mildly thickened. No obstruction. COLON: Moderate thickening and edema of the ascending, transverse, and proximal descending colon whic h may represent colitis. APPENDIX: No significant abnormality. PERITONEUM: Moderate ascites throughout the abdomen is unchanged. No free air. No fluid collection. LYMPH NODES: No significant adenopathy. AORTA / ARTERIES: No significant abnormality. IVC / VEINS: No significant abnormality. URINARY BLADDER: No significant abnormality. REPRODUCTIVE ORGANS: No significant abnormality. ADDITIONAL FINDINGS: None. SKELETAL SYSTEM: No significant abnormality. IMPRESSION: 1. Interval removal of left mid abdominal jejunostomy tube. 2. Mild residual small bowel thickening appears unchanged. No bowel obstruction. 3. Moderate thickening and edema of the colon which may represent colitis. 4. Moderate ascites is unchanged. Signer Name: Amarilys Rodriguez MD Signed: 08/16/2020 6:39 PM Workstation Name: [id number]
--- NOTE | 2020-08-16 19:03 | Emergency Department Report ---
ED Abdominal Pain HPI - General Chief Complaint: Wound/Laceration Stated Complaint: STOMACH PAIN/ DRAINAGE FROM WOUND Time Seen by Provider: 08/16/20 16:48 Source: patient Mode of arrival: Wheelchair Limitations: No Limitations - History of Present Illness Initial Comments: Patient is a 54-year-old female with an extensive GI history. Patient states that in May 2020 the patient had a G-tube placed secondary to surgery she had on her esophagus. Patient has an extensive history in our documentation of esophagitis and duodenitis with ulcers in the stomach. Apparently patient most of has some type of microtear that need it replaced. Patient was in the hospital at outside hospital had a G-tube placed to allow the surgical site to heal. Patient currently is taking all foods and medications by mouth and has not used the G-tube and at least several months. Patient presenting today secondary to some discharge coming out around the insertion site of the G-tube. Patient states she has some generalized abdominal discomfort. Denies nausea vomiting or diarrhea. States there is been no fevers or chills. Severity scale (0 -10): 5 - Related Data Home Medications Medication Instructions Recorded Confirmed Last Taken Acetaminophen [Tylenol] 325 mg PO Q48HR PRN 05/22/19 05/22/19 Unknown Previous Rx's Medication Instructions Recorded Last Taken Type Famotidine [Pepcid] 20 mg PO Q12H #60 tablet 05/15/19 Unknown Rx Famotidine [Pepcid] 20 mg PO BID 30 Days #60 tablet 05/22/19 Unknown Rx Ketorolac [Toradol] 10 mg PO Q6H PRN #10 tablet 07/31/20 Unknown Rx Ondansetron [Zofran Odt] 4 mg PO Q8HR PRN #14 tab.rapdis 07/31/20 Unknown Rx Dicyclomine [Bentyl] 20 mg PO Q6H PRN #30 tablet 08/02/20 Unknown Rx Esomeprazole Magnesium [NexIUM] 40 mg PO QDAY #30 marilou. 08/02/20 Unknown Rx Famotidine [Pepcid] 20 mg PO BID #60 tablet 08/02/20 Unknown Rx Ondansetron [Zofran Odt] 4 mg PO Q6HR PRN #20 tab.sharron 08/02/20 Unknown Rx Potassium Chloride [K-Dur] 20 meq PO BID #20 tab 08/02/20 Unknown Rx Ciprofloxacin HCl 500 mg PO BID #14 tablet 08/16/20 Unknown Rx Ketorolac [Toradol] 10 mg PO Q6H PRN #12 tablet 08/16/20 Unknown Rx metroNIDAZOLE [Flagyl] 500 mg PO Q12HR #14 tab 08/16/20 Unknown Rx Allergies Allergy/AdvReac Type Severity Reaction Status Date / Time Penicillins Allergy Swelling Verified 08/16/20 13:15 ED Review of Systems ROS: Stated complaint: STOMACH PAIN/ DRAINAGE FROM WOUND Other details as noted in HPI Comment: All other systems reviewed and negative ED Past Medical Hx - Past Medical History Hx Hypertension: Yes Hx Heart Attack/AMI: No Hx Congestive Heart Failure: No Hx Diabetes: No Hx GERD: Yes Hx Liver Disease: Yes (liver failure) Hx Renal Disease: No Hx Arthritis: Yes (in back) Hx Seizures: No Hx Asthma: No Hx COPD: No Additional medical history: anemia. Bleeding ulcer. k+ deficiency - Surgical History Additional Surgical History: Endoscopy for bleeding ulcer 5 years ago. endoscopy 03/01/2018. j-tube placement 05/2020 - Social History Smoking Status: Unknown if ever smoked Substance Use Type: None - Medications Home Medications: Home Medications Medication Instructions Recorded Confirmed Last Taken Type Famotidine [Pepcid] 20 mg PO Q12H #60 tablet 05/15/19 Unknown Rx Acetaminophen [Tylenol] 325 mg PO Q48HR PRN 05/22/19 05/22/19 Unknown History Famotidine [Pepcid] 20 mg PO BID 30 Days #60 tablet 05/22/19 Unknown Rx Ketorolac [Toradol] 10 mg PO Q6H PRN #10 tablet 07/31/20 Unknown Rx Ondansetron [Zofran Odt] 4 mg PO Q8HR PRN #14 tab.rapdis 07/31/20 Unknown Rx Dicyclomine [Bentyl] 20 mg PO Q6H PRN #30 tablet 08/02/20 Unknown Rx Esomeprazole Magnesium [NexIUM] 40 mg PO QDAY #30 marilou. 08/02/20 Unknown Rx Famotidine [Pepcid] 20 mg PO BID #60 tablet 08/02/20 Unknown Rx Ondansetron [Zofran Odt] 4 mg PO Q6HR PRN #20 tab.rapdis 08/02/20 Unknown Rx Potassium Chloride [K-Dur] 20 meq PO BID #20 tab 08/02/20 Unknown Rx Ciprofloxacin HCl 500 mg PO BID #14 tablet 08/16/20 Unknown Rx Ketorolac [Toradol] 10 mg PO Q6H PRN #12 tablet 08/16/20 Unknown Rx metroNIDAZOLE [Flagyl] 500 mg PO Q12HR #14 tab 08/16/20 Unknown Rx ED Physical Exam - General Limitations: No Limitations General appearance: alert, in no apparent distress - Head Head exam: Present: atraumatic, normocephalic - Eye Eye exam: Present: normal appearance, PERRL, EOMI - ENT ENT exam: Present: mucous membranes moist - Neck Neck exam: Present: normal inspection - Respiratory Respiratory exam: Present: normal lung sounds bilaterally. Absent: respiratory distress, wheezes, rales, rhonchi - Cardiovascular Cardiovascular Exam: Present: regular rate, normal rhythm, normal heart sounds. Absent: systolic murmur, diastolic murmur, rubs, gallop - GI/Abdominal GI/Abdominal exam: Present: soft, normal bowel sounds, other (The patient's stoma site in the mid abdomen appears well-healed. There is no to actually in the stoma at this time. Patient was apprised during physical exam and believes it had just pulled out before the exam.). Absent: distended, tenderness, guarding, rebound - Extremities Exam Extremities exam: Present: normal inspection - Back Exam Back exam: Present: normal inspection - Neurological Exam Neurological exam: Present: alert, oriented X3 - Psychiatric Psychiatric exam: Present: normal affect, normal mood - Skin Skin exam: Present: warm, dry, intact, normal color. Absent: rash ED Course Vital Signs 08/16/20 08/16/20 08/16/20 13:40 17:12 17:30 Temperature 99.1 F Pulse Rate 107 H 89 Respiratory 18 25 H Rate Blood Pressure 137/71 Blood Pressure 134/81 [Right] O2 Sat by Pulse 97 99 100 Oximetry 08/16/20 08/16/20 08/16/20 17:46 18:00 18:30 Temperature Pulse Rate Respiratory Rate Blood Pressure 144/75 152/71 139/67 Blood Pressure [Right] O2 Sat by Pulse 100 100 98 Oximetry ED Medical Decision Making - Lab Data Result diagrams: 08/16/20 14:05 08/16/20 14:05 Lab Results 08/16/20 08/16/20 08/16/20 Range/Units 14:05 14:05 14:05 WBC 4.9 (4.5-11.0) K/mm3 RBC 3.47 L (3.65-5.03) M/mm3 Hgb 11.6 (10.1-14.3) gm/dl Hct 33.6 (30.3-42.9) % MCV 97 (79-97) fl MCH 34 H (28-32) pg MCHC 35 H (30-34) % RDW 15.7 H (13.2-15.2) % Plt Count 140 (140-440) K/mm3 Add Manual Diff Complete Total Counted 100 Seg Neuts % (Manual) 88.0 H (40.0-70.0) % Lymphocytes % (Manual) 9.0 L (13.4-35.0) % Monocytes % (Manual) 1.0 (0.0-7.3) % Eosinophils % (Manual) 2.0 (0.0-4.3) % Nucleated RBC % Not Reportable Seg Neutrophils # Man 4.3 (1.8-7.7) K/mm3 Band Neutrophils # 0.0 K/mm3 Lymphocytes # (Manual) 0.4 L (1.2-5.4) K/mm3 Abs React Lymphs (Man) 0.0 K/mm3 Monocytes # (Manual) 0.0 (0.0-0.8) K/mm3 Eosinophils # (Manual) 0.1 (0.0-0.4) K/mm3 Basophils # (Manual) 0.0 (0.0-0.1) K/mm3 Metamyelocytes # 0.0 K/mm3 Myelocytes # 0.0 K/mm3 Promyelocytes # 0.0 K/mm3 Blast Cells # 0.0 K/mm3 WBC Morphology Not Reportable Hypersegmented Neuts Not Reportable Hyposegmented Neuts Not Reportable Hypogranular Neuts Not Reportable Smudge Cells Not Reportable Toxic Granulation Not Reportable Toxic Vacuolation Not Reportable Dohle Bodies Not Reportable Pelger-Huet Anomaly Not Reportable Casey Rods Not Reportable Platelet Estimate Consistent w auto Clumped Platelets Not Reportable Plt Clumps, EDTA Not Reportable Large Platelets Not Reportable Giant Platelets Not Reportable Platelet Satelliting Not Reportable Plt Morphology Comment Not Reportable RBC Morphology Not Reportable Dimorphic RBCs Not Reportable Polychromasia Not Reportable Hypochromasia Not Reportable Poikilocytosis 1+ Anisocytosis Not Reportable Microcytosis Not Reportable Macrocytosis Not Reportable Spherocytes Not Reportable Pappenheimer Bodies Not Reportable Sickle Cells Not Reportable Target Cells 1+ Tear Drop Cells 1+ Ovalocytes 1+ Helmet Cells Not Reportable Lange-Greenfield Bodies Not Reportable Blevins Rings Not Reportable [place] Cells Not Reportable Bite Cells Not Reportable Crenated Cell Not Reportable Elliptocytes Not Reportable Acanthocytes (Spur) Few Rouleaux Not Reportable Hemoglobin C Crystals Not Reportable Schistocytes Few Malaria parasites Not Reportable Lester Bodies Not Reportable Hem Pathologist Commnt No PT 19.3 H (12.2-14.9) Sec. INR 1.56 H (0.87-1.13) APTT 37.9 H (24.2-36.6) Sec. Sodium 135 L (137-145) mmol/L Potassium 3.5 L (3.6-5.0) mmol/L Chloride 101.4 (98-107) mmol/L Carbon Dioxide 20 L (22-30) mmol/L Anion Gap 17 mmol/L BUN 7 (7-17) mg/dL Creatinine 0.4 L (0.6-1.2) mg/dL Estimated GFR > 60 ml/min BUN/Creatinine Ratio 18 % Glucose 79 (65-100) mg/dL Lactic Acid (0.7-2.0) mmol/L Calcium 8.6 (8.4-10.2) mg/dL Total Bilirubin 3.90 H (0.1-1.2) mg/dL AST 37 (5-40) units/L ALT 10 (7-56) units/L Alkaline Phosphatase 165 H (35-129) units/L Total Protein 6.5 (6.3-8.2) g/dL Albumin 3.1 L (3.9-5) g/dL Albumin/Globulin Ratio 0.9 % 08/16/20 08/16/20 Range/Units 14:05 16:13 WBC (4.5-11.0) K/mm3 RBC (3.65-5.03) M/mm3 Hgb (10.1-14.3) gm/dl Hct (30.3-42.9) % MCV (79-97) fl MCH (28-32) pg MCHC (30-34) % RDW (13.2-15.2) % Plt Count (140-440) K/mm3 Add Manual Diff Total Counted Seg Neuts % (Manual) (40.0-70.0) % Lymphocytes % (Manual) (13.4-35.0) % Monocytes % (Manual) (0.0-7.3) % Eosinophils % (Manual) (0.0-4.3) % Nucleated RBC % Seg Neutrophils # Man (1.8-7.7) K/mm3 Band Neutrophils # K/mm3 Lymphocytes # (Manual) (1.2-5.4) K/mm3 Abs React Lymphs (Man) K/mm3 Monocytes # (Manual) (0.0-0.8) K/mm3 Eosinophils # (Manual) (0.0-0.4) K/mm3 Basophils # (Manual) (0.0-0.1) K/mm3 Metamyelocytes # K/mm3 Myelocytes # K/mm3 Promyelocytes # K/mm3 Blast Cells # K/mm3 WBC Morphology Hypersegmented Neuts Hyposegmented Neuts Hypogranular Neuts Smudge Cells Toxic Granulation Toxic Vacuolation Dohle Bodies Pelger-Huet Anomaly Casey Rods Platelet Estimate Clumped Platelets Plt Clumps, EDTA Large Platelets Giant Platelets Platelet Satelliting Plt Morphology Comment RBC Morphology Dimorphic RBCs Polychromasia Hypochromasia Poikilocytosis Anisocytosis Microcytosis Macrocytosis Spherocytes Pappenheimer Bodies Sickle Cells Target Cells Tear Drop Cells Ovalocytes Helmet Cells Lange-Greenfield Bodies Blevins Rings Betty Cells Bite Cells Crenated Cell Elliptocytes Acanthocytes (Spur) Rouleaux Hemoglobin C Crystals Schistocytes Malaria parasites Lester Bodies Hem Pathologist Commnt PT (12.2-14.9) Sec. INR (0.87-1.13) APTT (24.2-36.6) Sec. Sodium (137-145) mmol/L Potassium (3.6-5.0) mmol/L Chloride (98-107) mmol/L Carbon Dioxide (22-30) mmol/L Anion Gap mmol/L BUN (7-17) mg/dL Creatinine (0.6-1.2) mg/dL Estimated GFR ml/min BUN/Creatinine Ratio % Glucose (65-100) mg/dL Lactic Acid 2.60 H* 2.40 H* (0.7-2.0) mmol/L Calcium (8.4-10.2) mg/dL Total Bilirubin (0.1-1.2) mg/dL AST (5-40) units/L ALT (7-56) units/L Alkaline Phosphatase (35-129) units/L Total Protein (6.3-8.2) g/dL Albumin (3.9-5) g/dL Albumin/Globulin Ratio % - Medical Decision Making Patient stoma has migrated outward to the point where it is no longer in the patient's skin. The debris the patient likely was seen was secondary to the tube pulling out. CT shows no foreign bodies present. CT does show possible colitis. Because the patient has foreign body in place for quite some time we will also do some empiric antibiotics to cover for this as well. Patient stable for discharge. Patient given GI follow-up Critical care attestation.: If time is entered above; I have spent that time in minutes in the direct care of this critically ill patient, excluding procedure time. ED Disposition Clinical Impression: Colitis, Jejunostomy tube fell out Disposition: DC-01 TO HOME OR SELFCARE Is pt being admited?: No Does the pt Need Aspirin: No Condition: Stable Instructions: Colitis Referrals: [facility] [Provider Group] - 3-5 Days Time of Disposition: 19:08
[2020-08-16 20:50] VITALS: BP 132/72
== END 2020-08-16 20:51 | disposition home or self-care (01) ==
LOC: ED 13:06
DX: T85.528A Displacement of other gastrointestinal prosthetic devices, implants and grafts, initial encounter (principal); K52.9 Noninfective gastroenteritis and colitis, unspecified; I10 Essential (primary) hypertension; K21.9 Gastro-esophageal reflux disease without esophagitis; M19.90 Unspecified osteoarthritis, unspecified site; D64.9 Anemia, unspecified; Z98.890 Other specified postprocedural states; Z79.899 Other long term (current) drug therapy; Z88.0 Allergy status to penicillin; Y93.89 Activity, other specified; Y92.89 Other specified places as the place of occurrence of the external cause; Y99.8 Other external cause status
CPT/HCPCS: 36415; 74177; 80053; 82140; 85007; 85025; 85610; 85730; 87040; 96361; 96374; 99284; J1885; J7030; Q9967

== ENCOUNTER 2020-10-24 13:15 | Emergency (ER) | payer SELFPAY ==
[2020-10-24] MEDS ORDERED: HYDROcodone/ACETAMINOPHEN 5-325 MG TAB PO ONE (14:37)
--- NOTE | 2020-10-24 14:40 | Emergency Department Report ---
ED General Adult HPI - General Chief complaint: Pain General Stated complaint: LIVER DISEASE,BODYACHES Time Seen by Provider: 10/24/20 14:25 Source: patient Mode of arrival: Ambulatory Limitations: No Limitations - History of Present Illness Initial comments: This is a 54-year-old female who presents to the emergency room with pruritus. Patient states symptoms started 1 week ago. States she was diagnosed with liver failure at [facility] a few weeks ago and has increased itching that is making it difficult for her to sleep. She also reports achy pain to bilateral forearm areas where she had to scratch profusely. Patient states the last time she was seen here she was referred to [facility] and have a follow-up appointment on November 14, 2020 at 2 PM. She is requesting refill of medication given from [facility] which controlled itch. She denies abdominal pain, fever, chills, weakness, nausea, vomiting, diarrhea, or numbness or tingling. Onset/Timin -: week(s) Quality: other (Itching) Consistency: constant - Related Data Home Medications Medication Instructions Recorded Confirmed Last Taken Acetaminophen [Tylenol] 325 mg PO Q48HR PRN 05/22/19 05/22/19 Unknown Previous Rx's Medication Instructions Recorded Last Taken Type Famotidine [Pepcid] 20 mg PO Q12H #60 tablet 05/15/19 Unknown Rx Famotidine [Pepcid] 20 mg PO BID 30 Days #60 tablet 05/22/19 Unknown Rx Ketorolac [Toradol] 10 mg PO Q6H PRN #10 tablet 07/31/20 Unknown Rx Ondansetron [Zofran Odt] 4 mg PO Q8HR PRN #14 tab.rapdis 07/31/20 Unknown Rx Dicyclomine [Bentyl] 20 mg PO Q6H PRN #30 tablet 08/02/20 Unknown Rx Esomeprazole Magnesium [NexIUM] 40 mg PO QDAY #30 marilou. 08/02/20 Unknown Rx Famotidine [Pepcid] 20 mg PO BID #60 tablet 08/02/20 Unknown Rx Ondansetron [Zofran Odt] 4 mg PO Q6HR PRN #20 tab.rapdis 08/02/20 Unknown Rx Potassium Chloride [K-Dur] 20 meq PO BID #20 tab 08/02/20 Unknown Rx Ciprofloxacin HCl 500 mg PO BID #14 tablet 08/16/20 Unknown Rx Ketorolac [Toradol] 10 mg PO Q6H PRN #12 tablet 08/16/20 Unknown Rx metroNIDAZOLE [Flagyl] 500 mg PO Q12HR #14 tab 08/16/20 Unknown Rx hydrOXYzine PAMOATE [Vistaril] 25 mg PO Q6HR PRN #15 capsule 10/24/20 Unknown Rx Allergies Allergy/AdvReac Type Severity Reaction Status Date / Time Penicillins Allergy Swelling Verified 08/16/20 13:15 ED Review of Systems ROS: Stated complaint: LIVER DISEASE,BODYACHES Other details as noted in HPI Constitutional: denies: chills, fever Respiratory: denies: cough, shortness of breath, wheezing Cardiovascular: denies: chest pain, palpitations Skin: pruritus. denies: rash, lesions Neurological: denies: headache, weakness, paresthesias Psychiatric: denies: anxiety, depression ED Past Medical Hx - Past Medical History Previous Medical History?: Yes Hx Hypertension: Yes Hx Heart Attack/AMI: No Hx Congestive Heart Failure: No Hx Diabetes: No Hx GERD: Yes Hx Liver Disease: Yes (liver failure) Hx Renal Disease: No Hx Arthritis: Yes (in back) Hx Seizures: No Hx Asthma: No Hx COPD: No Additional medical history: anemia. Bleeding ulcer. k+ deficiency - Surgical History Past Surgical History?: Yes Additional Surgical History: Endoscopy for bleeding ulcer 5 years ago. endoscopy 03/01/2018. j-tube placement 05/2020 - Social History Smoking Status: Unknown if ever smoked Substance Use Type: None - Medications Home Medications: Home Medications Medication Instructions Recorded Confirmed Last Taken Type Famotidine [Pepcid] 20 mg PO Q12H #60 tablet 05/15/19 Unknown Rx Acetaminophen [Tylenol] 325 mg PO Q48HR PRN 05/22/19 05/22/19 Unknown History Famotidine [Pepcid] 20 mg PO BID 30 Days #60 tablet 05/22/19 Unknown Rx Ketorolac [Toradol] 10 mg PO Q6H PRN #10 tablet 07/31/20 Unknown Rx Ondansetron [Zofran Odt] 4 mg PO Q8HR PRN #14 tab.rapdis 07/31/20 Unknown Rx Dicyclomine [Bentyl] 20 mg PO Q6H PRN #30 tablet 08/02/20 Unknown Rx Esomeprazole Magnesium [NexIUM] 40 mg PO QDAY #30 capsule. 08/02/20 Unknown Rx Famotidine [Pepcid] 20 mg PO BID #60 tablet 08/02/20 Unknown Rx Ondansetron [Zofran Odt] 4 mg PO Q6HR PRN #20 tab.rapdis 08/02/20 Unknown Rx Potassium Chloride [K-Dur] 20 meq PO BID #20 tab 08/02/20 Unknown Rx Ciprofloxacin HCl 500 mg PO BID #14 tablet 08/16/20 Unknown Rx Ketorolac [Toradol] 10 mg PO Q6H PRN #12 tablet 08/16/20 Unknown Rx metroNIDAZOLE [Flagyl] 500 mg PO Q12HR #14 tab 08/16/20 Unknown Rx hydrOXYzine PAMOATE [Vistaril] 25 mg PO Q6HR PRN #15 capsule 10/24/20 Unknown Rx ED Physical Exam - General Limitations: No Limitations General appearance: alert, in no apparent distress - Respiratory Respiratory exam: Present: normal lung sounds bilaterally. Absent: respiratory distress - Cardiovascular Cardiovascular Exam: Present: regular rate, normal rhythm. Absent: systolic murmur, diastolic murmur, rubs, gallop - GI/Abdominal GI/Abdominal exam: Present: soft, normal bowel sounds. Absent: distended, tenderness, guarding, rebound, rigid - Neurological Exam Neurological exam: Present: alert, oriented X3, normal gait - Psychiatric Psychiatric exam: Present: normal affect, normal mood - Skin Skin exam: Present: warm, dry, intact, normal color. Absent: rash ED Course Vital Signs 10/24/20 14:20 Temperature 98.4 F Pulse Rate 91 H Respiratory 20 Rate Blood Pressure 127/67 O2 Sat by Pulse 100 Oximetry ED Medical Decision Making - Medical Decision Making 54 y.o. female that presents with generalized pruritus for 1 week. Reports history of liver failure which causes her skin to itch. Requesting refill of medication. Denies drug use, asthma, SOB, palpations, fever, or dyspnea. Patient is stable at this time and does not warrant labs or imaging. Given medication in the ER and reports symptoms improved. Patient's symptoms was controlled prior to discharge and well appearing. Start hydroxyzine. Referrals given for PCP follow-up. Discharged home stable. Given strict return instructions. Critical care attestation.: If time is entered above; I have spent that time in minutes in the direct care of this critically ill patient, excluding procedure time. ED Disposition Clinical Impression: Pruritus Disposition: 01 HOME / SELF CARE / HOMELESS Is pt being admited?: No Condition: Stable Instructions: Pruritus Prescriptions: hydrOXYzine PAMOATE [Vistaril] 25 mg PO Q6HR PRN #15 capsule PRN Reason: Itching Referrals: [facility] [Provider Group] - 3-5 Days [facility] [Outside] - 3-5 Days LUCIE KC MD [Staff Physician] - 3-5 Days Time of Disposition: 15:06
[2020-10-24] MEDS ORDERED: diphenhydrAMINE 25 MG CAP PO ONE (15:04)
[2020-10-24 15:34] VITALS: BP 144/77
[2020-10-24] MEDS ORDERED: hydrOXYzine HCL 10 MG TAB PO ONE (15:37)
== END 2020-10-24 15:33 | disposition home or self-care (01) ==
LOC: ED 13:15
DX: L29.9 Pruritus, unspecified (principal); K21.9 Gastro-esophageal reflux disease without esophagitis; I10 Essential (primary) hypertension; Z88.0 Allergy status to penicillin; Z79.899 Other long term (current) drug therapy
CPT/HCPCS: 99282

== ENCOUNTER 2020-12-20 13:48 | Emergency (ER) | payer SELFPAY ==
--- NOTE | 2020-12-20 16:01 | Emergency Department Report ---
Minor Respiratory - HPI Chief Complaint: Pain General Stated Complaint: COUGH/MUSCLE PAIN/CHEST TIGHTNESS Time Seen by Provider: 12/20/20 15:12 Minor Respiratory: Yes Able to Tolerate Fluids, Yes Cough, No Shortness of Breath Other History: 55-year-old female presents to the emergency room complaining of a cough for 2 weeks and right shoulder pain. Patient states right shoulder pain is where she had surgery and when she lays down on that right shoulder it causes pain. Patient is vaccinated. She complains of body aches. She denies any cigarette use alcohol use or drug use. 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 Patient currently does not have a primary care provider. She does admit that she has a history of acid reflux. Her surgery was done in October. SHe states that she had to have esophagus repair secondary to duodenal ulcers. Patient states she has been taking Aleve for her pain. Review of patient's medical records show that she had also surgery done in May and was informed to stay away from NSAIDs. 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 Bleeding ulcer. k+ deficiency - Surgical History Past Surgical History?: Yes Additional Surgical History: Endoscopy for bleeding ulcer 5 years ago. endoscopy 03/01/2018. j-tube placement 05/2020 - Social History Smoking Status: Unknown if ever smoked Substance Use Type: None - Medications Home Medications: Home Medications Medication Instructions Recorded Confirmed Last Taken Type Famotidine [Pepcid] 20 mg PO Q12H #60 tablet 05/15/19 Unknown Rx Acetaminophen [Tylenol] 325 mg PO Q48HR PRN 05/22/19 05/22/19 Unknown History Famotidine [Pepcid] 20 mg PO BID 30 Days #60 tablet 05/22/19 Unknown Rx Ketorolac [Toradol] 10 mg PO Q6H PRN #10 tablet 07/31/20 Unknown Rx Ondansetron [Zofran Odt] 4 mg PO Q8HR PRN #14 tab.rapdis 07/31/20 Unknown Rx Dicyclomine [Bentyl] 20 mg PO Q6H PRN #30 tablet 08/02/20 Unknown Rx Esomeprazole Magnesium [NexIUM] 40 mg PO QDAY #30 capsule.dr 08/02/20 Unknown Rx Famotidine [Pepcid] 20 mg PO BID #60 tablet 08/02/20 Unknown Rx Ondansetron [Zofran Odt] 4 mg PO Q6HR PRN #20 tab.rapdis 08/02/20 Unknown Rx Potassium Chloride [K-Dur] 20 meq PO BID #20 tab 08/02/20 Unknown Rx Ciprofloxacin HCl 500 mg PO BID #14 tablet 08/16/20 Unknown Rx Ketorolac [Toradol] 10 mg PO Q6H PRN #12 tablet 08/16/20 Unknown Rx metroNIDAZOLE [Flagyl] 500 mg PO Q12HR #14 tab 08/16/20 Unknown Rx hydrOXYzine PAMOATE [Vistaril] 25 mg PO Q6HR PRN #15 capsule 10/24/20 Unknown Rx Albuterol Sulfate [Proventil Hfa] 6.7 gm IH TID PRN #1 hfa.aer.ad 12/20/20 Unknown Rx Benzonatate [Tessalon Perles] 100 mg PO Q8HR #15 capsule 12/20/20 Unknown Rx Dexamethasone [Decadron] 6 mg PO QDAY #6 tablet 12/20/20 Unknown Rx traMADoL [Ultram 50 MG tab] 50 mg PO Q6HR PRN #10 tablet 12/20/20 Unknown Rx Minor Respiratory Exam - Exam General: Vital signs noted. No distress. Alert and acting appropriately. HEENT: Yes Moist Mucous Membranes, No Pharyngeal Erythema, No Pharyngeal Exudates, No Rhinorrhea, No Conjuctival Injection, No Frontal Tenderness, No Maxillary Tenderness Neck: Yes Supple, No Adenopathy Lungs: Yes Good Air Exchange, No Wheezes, No Ronchi, No Stridor, No Cough, No Labored Respirations, No Retractions, No Use of Accessory Muscles, No Other Abnormal Lung Sounds Heart: Yes Regular, No Murmur Abdomen: Yes Normal Bowel Sounds, No Tenderness, No Peritoneal Signs Skin: No Rash, No Edema Neurologic: Alert and oriented, no deficits. Musculoskeletal: Unremarkable. ED Course Vital Signs 12/20/20 13:58 Temperature 97.8 F Pulse Rate 99 H Respiratory 22 Rate Blood Pressure 148/82 O2 Sat by Pulse 100 Oximetry Critical care attestation.: If time is entered above; I have spent that time in minutes in the direct care of this critically ill patient, excluding procedure time. ED Disposition Clinical Impression: Upper respiratory infection, viral Disposition: 01 HOME / SELF CARE / HOMELESS Is pt being admited?: No Does the pt Need Aspirin: No Condition: Stable Instructions: Viral Respiratory Infection, [id number] Additional Instructions: Please take medications as prescribed. Follow-up with your primary care provider. Prescriptions: Dexamethasone [Decadron] 6 mg PO QDAY #6 tablet Albuterol Sulfate [Proventil Hfa] 6.7 gm IH TID PRN #1 hfa.aer.ad PRN Reason: Cough Benzonatate [Tessalon Perles] 100 mg PO Q8HR #15 capsule traMADoL [Ultram 50 MG tab] 50 mg PO Q6HR PRN #10 tablet PRN Reason: Pain Referrals: [facility] [Provider Group] - 3-5 Days LUCIE KC MD [Staff Physician] - 3-5 Days Time of Disposition: 16:58
[2020-12-20] MEDS ORDERED: traMADol 50 MG TAB PO ONE (16:07)
--- NOTE | 2020-12-20 16:46 | XRay Report ---
CHEST 2 VIEWS INDICATION: Cough body aches. COMPARISON: 10/03/2020 FINDINGS: Support devices: None. Heart: Within normal limits. Lungs/Pleura: No acute infiltrate. Changes of previous gastric pull-through. Mild pleural fluid/thi ckening remains at the right base. IMPRESSION: Stable chest. Signer Name: Rafael Miranda MD Signed: 12/20/2020 4:42 PM Workstation Name: [id number]
[2020-12-20 17:16] VITALS: BP 146/82
== END 2020-12-20 17:59 | disposition home or self-care (01) ==
LOC: ED 13:48
DX: J06.9 Acute upper respiratory infection, unspecified (principal); M25.511 Pain in right shoulder; I10 Essential (primary) hypertension; K21.9 Gastro-esophageal reflux disease without esophagitis
CPT/HCPCS: 71046; 82962; 99283

== ENCOUNTER 2021-07-03 13:49 | Emergency (ER) | payer SELFPAY ==
[2021-07-03 15:02] LABS: Basophils % (Auto) 0.6 % (0.0-1.8); Eosinophils # (Auto) 0.1 K/mm3 (0.0-0.4); Eosinophils % (Auto) 1.7 % (0.0-4.3); Hematocrit 26.9 % (30.3-42.9); Hemoglobin 8.1 gm/dl (10.1-14.3); Lymphocytes # (Auto) 1.3 K/mm3 (1.2-5.4); Lymphocytes % (Auto) 28.3 % (13.4-35.0); Mean Corpuscular HGB Conc 30 % (30-34); Monocytes # (Auto) 0.3 K/mm3 (0.0-0.8); Monocytes % (Auto) 7.1 % (0.0-7.3); Platelet Count 163 K/mm3 (140-440); Red Blood Count 4.14 M/mm3 (3.65-5.03)
[2021-07-03 15:05] LABS: Mean Corpuscular Volume 65 fl (79-97)
[2021-07-03 15:06] LABS: INR 1.16 (0.87-1.13); Red Cell Distribution Width 21.4 % (13.2-15.2)
[2021-07-03 15:07] LABS: Partial Thromboplastin Time 36.3 Sec. (24.2-36.6)
[2021-07-03 15:16] LABS: Alanine Aminotransferase 14 units/L (7-56); Albumin 3.9 g/dL (3.9-5); Blood Urea Nitrogen 9 mg/dL (7-17); Calcium 8.3 mg/dL (8.4-10.2); Hemolysis Index 2
[2021-07-03 15:20] LABS: BUN/Creatinine Ratio 15
[2021-07-03] MEDS ORDERED: POTASSIUM CHLORIDE ER 20 MEQ TAB PO ONE (22:07)
[2021-07-03 22:33] VITALS: BP 138/63
--- NOTE | 2021-07-03 22:43 | XRay Report ---
CHEST 1 VIEW INDICATION / CLINICAL INFORMATION: Chest pain STUDY TIME: 2215 COMPARISON: 12/20/2020 FINDINGS: SUPPORT DEVICES: None HEART / MEDIASTINUM: No significant abnormality. LUNGS / PLEURA: Mild probable atelectasis is seen in the right base laterally. No definite pneumonic infiltrates are seen. No pleural effusions are noted. No pneumothorax. ADDITIONAL FINDINGS: No significant additional findings. Signer Name: Clif Murdokc MD Signed: 07/03/2021 10:38 PM Workstation Name: [id number]
[2021-07-03] MEDS ORDERED: POTASSIUM CHLORIDE 10 MEQ 10 MEQ/100 ML BAG IV SCH (23:00)
[2021-07-03] MEDS ORDERED: SODIUM CHLORIDE 0.9% 1000 ML 1,000 ML ONE (23:05)
[2021-07-03] MEDS ORDERED: MORPHINE 4 MG/1 ML INJ IV ONE (23:08)
--- NOTE | 2021-07-03 23:15 | Emergency Department Report ---
ED Chest Pain HPI - General Chief Complaint: Chest Pain Stated Complaint: SOB/CHEST PAIN/WEAKNESS Time Seen by Provider: 07/03/21 22:06 Source: patient Mode of arrival: Wheelchair Limitations: No Limitations - History of Present Illness Initial Comments: Patient is a 55-year-old female presented ED with complaint of chest heaviness and dyspnea on exertion for the past week along with cough with pinkish sputum. She denies history of CHF or COPD. - Related Data Home Medications Medication Instructions Recorded Confirmed Last Taken Acetaminophen [Tylenol] 325 mg PO Q48HR PRN 05/22/19 05/22/19 Unknown Previous Rx's Medication Instructions Recorded Last Taken Type Famotidine [Pepcid] 20 mg PO Q12H #60 tablet 05/15/19 Unknown Rx Famotidine [Pepcid] 20 mg PO BID 30 Days #60 tablet 05/22/19 Unknown Rx Pantoprazole [Protonix] 40 mg PO BID #120 tablet 02/03/20 Unknown Rx Sucralfate [Carafate] 1 gm PO ACHS 30 Days 02/03/20 Unknown Rx Ketorolac [Toradol] 10 mg PO Q6H PRN #10 tablet 07/31/20 Unknown Rx Ondansetron [Zofran Odt] 4 mg PO Q8HR PRN #14 tab.rapdis 07/31/20 Unknown Rx Dicyclomine [Bentyl] 20 mg PO Q6H PRN #30 tablet 08/02/20 Unknown Rx Esomeprazole Magnesium [NexIUM] 40 mg PO QDAY #30 capsule.dr 08/02/20 Unknown Rx Famotidine [Pepcid] 20 mg PO BID #60 tablet 08/02/20 Unknown Rx Ondansetron [Zofran Odt] 4 mg PO Q6HR PRN #20 tab.rapdis 08/02/20 Unknown Rx Potassium Chloride [K-Dur] 20 meq PO BID #20 tab 08/02/20 Unknown Rx Ciprofloxacin HCl 500 mg PO BID #14 tablet 08/16/20 Unknown Rx Ketorolac [Toradol] 10 mg PO Q6H PRN #12 tablet 08/16/20 Unknown Rx metroNIDAZOLE [Flagyl] 500 mg PO Q12HR #14 tab 08/16/20 Unknown Rx Ciprofloxacin HCl 500 mg PO Q12HR 10 Days #20 tablet 09/06/20 Unknown Rx Ondansetron [Zofran Odt] 4 mg PO Q6HR PRN #14 tab.rapdis 09/06/20 Unknown Rx metroNIDAZOLE [Flagyl] 500 mg PO Q12HR 10 Days #20 tab 09/06/20 Unknown Rx Cefpodoxime Proxetil 200 mg PO Q12H 7 Days #14 tablet 10/03/20 Unknown Rx Doxycycline Monohydrate 100 mg PO BID 10 Days #20 capsule 10/03/20 Unknown Rx traMADoL [Ultram 50 MG tab] 50 mg PO Q6HR PRN #10 tablet 10/03/20 Unknown Rx hydrOXYzine PAMOATE [Vistaril] 25 mg PO Q6HR PRN #15 capsule 10/24/20 Unknown Rx Albuterol Sulfate [Proventil Hfa] 6.7 gm IH TID PRN #1 hfa.aer.ad 12/20/20 Unknown Rx Benzonatate [Tessalon Perles] 100 mg PO Q8HR #15 capsule 12/20/20 Unknown Rx Dexamethasone [Decadron] 6 mg PO QDAY #6 tablet 12/20/20 Unknown Rx traMADoL [Ultram 50 MG tab] 50 mg PO Q6HR PRN #10 tablet 12/20/20 Unknown Rx Allergies Allergy/AdvReac Type Severity Reaction Status Date / Time Penicillins Allergy Swelling Verified 07/03/21 22:08 Heart Score - HEART Score History: Slightly suspicious EKG: Normal Age: 45-65 Risk factors: No known risk factors Troponin: < normal limit HEART Score: 1 - EKG Read Time Time EKG Completed: 14:18 EKG Read Time: 14:22 - Critical Actions Critical Actions: 0-3 pts:0.9-1.7%risk of adverse cardiac event.Candidate for discharge ED Review of Systems ROS: Stated complaint: SOB/CHEST PAIN/WEAKNESS Other details as noted in HPI ED Past Medical Hx - Past Medical History Hx Hypertension: Yes Hx Heart Attack/AMI: No Hx Congestive Heart Failure: No Hx Diabetes: No Hx GERD: Yes Hx Liver Disease: Yes Hx Renal Disease: No Hx Sickle Cell Disease: No Hx Arthritis: Yes (in back) Hx Seizures: No Hx Asthma: No Hx COPD: No Additional medical history: PUD. GI Bleed/ LIVER FAILURE. Anemia - Surgical History Additional Surgical History: ABD PAIN X 3 - Social History Smoking Status: Never Smoker - Medications Home Medications: Home Medications Medication Instructions Recorded Confirmed Last Taken Type Famotidine [Pepcid] 20 mg PO Q12H #60 tablet 05/15/19 Unknown Rx Acetaminophen [Tylenol] 325 mg PO Q48HR PRN 05/22/19 05/22/19 Unknown History Famotidine [Pepcid] 20 mg PO BID 30 Days #60 tablet 05/22/19 Unknown Rx Pantoprazole [Protonix] 40 mg PO BID #120 tablet 02/03/20 Unknown Rx Sucralfate [Carafate] 1 gm PO ACHS 30 Days 02/03/20 Unknown Rx Ketorolac [Toradol] 10 mg PO Q6H PRN #10 tablet 07/31/20 Unknown Rx Ondansetron [Zofran Odt] 4 mg PO Q8HR PRN #14 tab.rapdis 07/31/20 Unknown Rx Dicyclomine [Bentyl] 20 mg PO Q6H PRN #30 tablet 08/02/20 Unknown Rx Esomeprazole Magnesium [NexIUM] 40 mg PO QDAY #30 capsule. 08/02/20 Unknown Rx Famotidine [Pepcid] 20 mg PO BID #60 tablet 08/02/20 Unknown Rx Ondansetron [Zofran Odt] 4 mg PO Q6HR PRN #20 tab.rapdis 08/02/20 Unknown Rx Potassium Chloride [K-Dur] 20 meq PO BID #20 tab 08/02/20 Unknown Rx Ciprofloxacin HCl 500 mg PO BID #14 tablet 08/16/20 Unknown Rx Ketorolac [Toradol] 10 mg PO Q6H PRN #12 tablet 08/16/20 Unknown Rx metroNIDAZOLE [Flagyl] 500 mg PO Q12HR #14 tab 08/16/20 Unknown Rx Ciprofloxacin HCl 500 mg PO Q12HR 10 Days #20 tablet 09/06/20 Unknown Rx Ondansetron [Zofran Odt] 4 mg PO Q6HR PRN #14 tab.rapdis 09/06/20 Unknown Rx metroNIDAZOLE [Flagyl] 500 mg PO Q12HR 10 Days #20 tab 09/06/20 Unknown Rx Cefpodoxime Proxetil 200 mg PO Q12H 7 Days #14 tablet 10/03/20 Unknown Rx Doxycycline Monohydrate 100 mg PO BID 10 Days #20 capsule 10/03/20 Unknown Rx traMADoL [Ultram 50 MG tab] 50 mg PO Q6HR PRN #10 tablet 10/03/20 Unknown Rx hydrOXYzine PAMOATE [Vistaril] 25 mg PO Q6HR PRN #15 capsule 10/24/20 Unknown Rx Albuterol Sulfate [Proventil Hfa] 6.7 gm IH TID PRN #1 hfa.aer.ad 12/20/20 Unknown Rx Benzonatate [Tessalon Perles] 100 mg PO Q8HR #15 capsule 12/20/20 Unknown Rx Dexamethasone [Decadron] 6 mg PO QDAY #6 tablet 12/20/20 Unknown Rx traMADoL [Ultram 50 MG tab] 50 mg PO Q6HR PRN #10 tablet 12/20/20 Unknown Rx ED Physical Exam - General Limitations: No Limitations General appearance: alert, in no apparent distress - Head Head exam: Present: atraumatic, normocephalic - Respiratory Respiratory exam: Present: normal lung sounds bilaterally. Absent: respiratory distress - Cardiovascular Cardiovascular Exam: Present: regular rate, normal rhythm, normal heart sounds - GI/Abdominal GI/Abdominal exam: Present: soft. Absent: distended, tenderness - Rectal Rectal exam: Present: deferred - Neurological Exam Neurological exam: Present: alert, oriented X3, CN II-XII intact - Psychiatric Psychiatric exam: Present: normal affect, normal mood - Skin Skin exam: Present: warm, dry, intact, normal color ED Course Vital Signs 07/03/21 07/03/21 14:09 22:33 Temperature 99.3 F Pulse Rate 99 H Respiratory 18 18 Rate Blood Pressure 138/63 O2 Sat by Pulse 98 98 Oximetry ED Medical Decision Making - Lab Data Result diagrams: 07/03/21 14:41 07/04/21 01:14 - EKG Data -: EKG Interpreted by [facility] EKG shows normal: sinus rhythm, axis, intervals Rate: normal - Medical Decision Making Chest x-ray shows no no acute findings. Specifically there is no infiltrates or edema present. CBC grossly unremarkable. Troponin unremarkable x2. Serum potassium 2.8. Chemistry otherwise unremarkable. Given IV and oral replacement. Repeat potassium 3.9. Patient stable for discharge home with return precautions Critical care attestation.: If time is entered above; I have spent that time in minutes in the direct care of this critically ill patient, excluding procedure time. ED Disposition Clinical Impression: Hypokalemia, Nonspecific chest pain Disposition: HOME / SELF CARE / HOMELESS Is pt being admited?: No Does the pt Need Aspirin: No Condition: Stable Instructions: Hypokalemia, Nonspecific Chest Pain, Adult Referrals: PRIMARY CARE,MD [Primary Care Provider] - 3-5 Days Forms: Accompanied Note
[2021-07-04 01:49] LABS: BUN/Creatinine Ratio 14; Blood Urea Nitrogen 11 mg/dL (7-17); Calcium 8.1 mg/dL (8.4-10.2); Hemolysis Index 4
--- NOTE | 2021-07-05 10:15 | Electrocardiograph Report ---
[facility] Test Date: 2021-07-03 Test Time: 14:15:58 Pat Name: JELENA FRAUSTO Department: Room: Gender: F [employer]yl[employer]: SAMANTHA : 1965 Requested By: GREG HOWELL Order Number: [id number] Reading MD: Tavo Scales Measurements Intervals [place]alier Rate: 99 P: 5 WY: 124 QRS: 44 QRSD: 85 T: -73 QT: 397 QTc: 509 Interpretive Statements Sinus rhythm Ventricular premature complex ST DEPRESSION- CONSIDER ISCHEMIA Compared to ECG 10/03/2020 14:45:43 Ventricular premature complex(es) now present ST CHANGES ARE NEW Electronically Signed On 07-05-2021 10:15:13 EDT by Tavo Scales
== END 2021-07-04 02:49 | disposition home or self-care (01) ==
LOC: ED 13:49
DX: E87.6 Hypokalemia (principal); R07.89 Other chest pain
CPT/HCPCS: 36415; 71045; 80048; 80053; 83690; 84484; 85025; 85610; 85730; 93005; 96365; 96375; 99284; J2270; J3480; J7030